=== PATIENT | female | born 1975 | race Caucasian/White ===

== ENCOUNTER 2025-03-12 02:18 | Day surgery (SDC) | payer OTHER, SELFPAY ==
[2025-03-04 13:56] VITALS: BMI 26.6
--- NOTE | 2025-03-04 14:23 | PC.NURSE ---
Report to the Outpatient Waiting Room, entrance under the green pavilion located off [facility], at time _0600 on date __03/12/25 . Planned Procedure Time: _0730 .? Time changes happen often and if your time is changed the preop area will call you the afternoon before. - You and your visitor will be asked to self-screen and do not enter if you have any COVID symptoms. Please call surgeon if you need to reschedule. - A mask is optional within the hospital at this time. Patients may have clear liquids (water, carbonated beverages, clear teas, apple juice) until 3 hours prior to surgery with a maximum of 20 ounces. - No food from midnight until time of surgery and no smoking, or chewing tobacco (or any form of nicotine). No chewing gum, candy or mints. - Infants may have breast milk until 4 hours before surgery, formula 6 hours prior to surgery. - Children will be allowed to drink immediately following surgery.? If applicable, please bring a bottle or sippy cup to assist with drinking. Juice, water, soda, and popsicles are readily available.? For infants on formula, please bring formula the day of surgery.? Pacifiers are allowed. Take only the following medications with a SIP of water on the morning of surgery: _Gabapentin DO NOT STOP ANY OF YOUR OTHER PRESCRIPTION MEDICATIONS PRIOR TO SURGERY EXCEPT THE FOLLOWING Hold all vitamins and supplements for 3 days per anesthesiologist. Please no make-up, nail swedish, hairspray, perfume, deodorant, or body powder the day of surgery.? No jewelry (including any body piercings) or valuables the day of surgery, leave them at home.? Please take a shower or bath the night before, or the morning of, surgery with an antibacterial soap.? Wear comfortable, loose fitting clothing.? Children are encouraged to wear pajamas. - Jewelry must be removed prior to entering the operating room.? Rings and piercings that are not removed may be cut off. - The hospital will not accept responsibility for valuables.? - Please leave all valuables, including medications, at home the day of surgery. If you are going home after surgery, a licensed hammer driver must drive you home.? - NO public transportation without another adult if you receive anesthesia. - We recommend that an adult stay with you for 24 hours following discharge. - We also recommend that you do not drive, make important decision, drink alcoholic beverages, or take any drugs that were not prescribed by your health care provider for at least 24 hours after your discharge time. For Pediatric surgeries, we recommend two adults accompany the child home. Follow any additional instructions given to you from your surgeon. Telephone instructions given to Laisha and asked if any additional questions and then verbalized understanding. Patient advised to call surgeon office or pre surgery nurse liaison [phone] if any additional questions.
--- NOTE | 2025-03-07 20:13 | P.HP_ITS ---
H&P: HPI History of Present Illness Date/Time: 03/07/25 20:13 Chief Complaint: DONAVON Narrative: Mixed incontinence. DONAVON is main issue Review of Systems Review of Systems: All systems reviewed & are unremarkable except as noted in HPI and below [facility] Social History Social History Smoking status: Never smoker Alcohol intake: never Substance use: never Living arrangements: alone Spiritual care concerns: No Meds Home Medications and Allergies Home Medications ?Medication ?Instructions ?Recorded ?Confirmed ?Type cholecalciferol (vitamin D3) 25 25 mcg PO DAILY 03/04/25 03/04/25 History mcg (1,000 unit) capsule (Vitamin D3) gabapentin 300 mg capsule 300 mg PO TID 03/04/25 03/04/25 History oxybutynin chloride 5 mg tablet 5 mg PO DAILY 03/04/25 03/04/25 History Allergies Allergy/AdvReac Type Severity Reaction Status Date / Time Penicillins Allergy Intermediate Hives Verified 03/04/25 13:53 Exam Narrative: + urethral mobility Assessment and Plan Assessment and plan (1) DONAVON (stress urinary incontinence, female): Code(s): N39.3 - Stress incontinence (female) (male) Status: Acute Assessment and Plan: Urethral sling
[2025-03-12] VITALS (7 sets, daily range): BP systolic 92–143; BP diastolic 55–88; PULSE 53–73; RESP 14–20; TEMP 36.5–36.6; O2SAT 97–100
--- OUTSIDE RECORDS SUMMARY | 2025-03-12 02:25 | XMS_ITS | Encounter Summary ---
Author Name [facility] Organization [facility] Address [address] [place] [id number] Care Team Providers Care Product Support Engineer Name Role Phone GABY ANNA Primary Care Provider Unavailabl e Selected Encounter This section includes the information on record at [place] for the Encounter. Date/Time Encounter Type Encounter Description Reason Provider Source Dec 25, 2024 08:20 AM OFFICE O/P EST MOD 30 MIN GENERAL INTERNAL MEDICINE ICD-10-CM M54.51 Vertebrogenic low back pain RIP ANNA Papo Encounter Template Text not used by [place] Assessments - Encounter Diagnoses This section includes the primary and secondary diagnoses documented for the Encounter. Date/Time Primary/Secondary Diagnosis Diagnosis Name Provider Source Dec 25, 2024 10:36 AM PRIMARY Vertebrogenic low back pain [facility] Dec 25, 2024 10:36 AM SECONDARY Basal cell carcinoma of skin, unspecified [facility] Dec 25, 2024 10:36 AM SECONDARY Stress incontinence (female) ([facility] Dec 25, 2024 10:36 AM SECONDARY Thoracic root disorders, not elsewhere classified [facility] Dec 25, 2024 10:36 AM SECONDARY Vitamin D deficiency, unspecified [facility] Plan of Treatment: Future Appointments (+ 6 months) and Future Tests (+/- 45 days) The Plan of Treatment section includes future care activities for the patient from all [place] treatmentfacilities. This section includes future appointments and future orders which are active, pending or scheduled. Future Appointments This section includes appointments that were scheduled to occur 6 months from the date of the Encounter, up to a maximum of 20 appointments. The data comes from all [facility]. Appointment Date/Time Appointment Type Appointme nt Facility Name Jan 05, 2025 07:30 AM AMBULATORY - SURGERY [facility] Jan 20, 2025 02:30 PM AMBULATORY - SURGERY [facility] Mar 29, 2025 10:30 AM AMBULATORY - MEDICINE [facility] Apr 09, 2025 09:00 AM AMBULATORY - NONE [facility] SAR[facility] Kelley [facility] May 12, 2025 07:30 AM AMBULATORY - NONE [facility] Mackenzie [facility] Active, Pending, and Scheduled Orders This section includes a listing of several types of active, pending, and scheduled orders, including clinic medications orders, diagnostic test orders, procedure orders and consult orders; where the start date of the order is 45 days before the date of the Encounter or 45 days after the date of theEncounter. The data comes from all [facility]. Test Date/Time Test Type Test Details Facility Name Dec 25, 2024 09:22 AM Consult Order COMMUNITY CARE-L UROLOGY [facility] Facility Maintenance [facility] Dec 25, 2024 09:25 AM Consult Order WHOLE HEAL TH MA[employer] OUTPT STL [facility] Vital Signs: All taken on the encounter date This section contains inpatient and outpatient Vital Signs collected on the date of the Encounter. Date/Time Temperature Pulse Blood Pressure Respiratory Rate SP02 Pain Height Weight Body Mass Index Source Dec 25, 2024 08:31 AM 98 89 131/89 18 99 4 [facility] Social History: Smoking Status (Most current) and Tobacco Use (All prior to encounter date) This section includes the most current, and the historical, smoking and tobacco- related health factors from the [place] facility where the Encounter took place. Current Smoking Status This section includes the most current smoking, or tobacco-related health factor, from the [place] facility where the Encounter took place. Date/Time Current Smoking Status Chel arredondo Mar 30, 2024 11:30 AM [place]-TOBACCO NEVER USED [facility] Tobacco Use History This section includes a history of the smoking, or tobacco-related health factors, that were collected on or before the date of the Encounter. The data comes from the [place] facility where the Encounter took place. Date/Time Smoking Status/Tobacco Use Comment F acility Apr 12, 2023 02:30 PM [place]-TOBACCO NEVER USED [facility] Apr 27, 2022 11:00 AM [place]-TOBACCO NEVER USED [facility] Radiology Reports: +/- 30 days of the encounter Radiology Reports For cases when an order for radiology services may have been completed prior to the date of the Encounter, the report list includes the Radiology Reports that were completed up to 30 days before dateof the Encounter. For cases when an order for radiology services may have been completed after the date of the Encounter, the report list also includes the Radiology Reports that were completed up to30 days after date of the Encounter. The data comes from all [place] treatment facilities. Date/Time Radiology Report Provider Source Dec 25, 2024 08:59 AM FOOT,LEFT 3 VIEWS OR MORE: ALFONSO ANGULO [id number] -[id number] F Exm Date: DEC 25, 2024@08:59 Req Phys: GABY ANNA Pat Loc: [facility]-PC GEN MED TM-C SAME DAY (R Img Loc: [facility]-MAIN RADIOLOGY SUITE Service: Unknown Screen: Patient answered no [facility] [address] [place] [address] (Case [id number] COMPLETE) FOOT,LEFT 3 VIEWS OR MORE (RAD Detailed) CPT:53238 Proc Modifiers : LEFT Reason for Study: left foot pain dorsal aspect Clinical History: left foot pain ongoing x 2 years Report Status: Verified Date Reported: DEC 25, 2024 Date Verified: DEC 25, 2024 Offshore Wind Turbine Technician E-Sig:/ES/YOLANDA VILLALPANDO Report: EXAMINATION: FOOT,LEFT 3 VIEWS OR MORE DATE: 12/25/2024 8:59 AM HISTORY: left foot pain dorsal aspect. COMPARISON: Left foot x-rays May 2023. VIEWS:3 FINDINGS:No fracture, subluxation or dislocation. No congenital anomaly. Minimal inferior calcaneal enthesophyte of no clinical consequence. No focal destructive process. No specific source of left-sided dorsal pain is seen. Impression: Normal left foot x-rays. Primary Interpreting Staff: YOLANDA VILLALPANDO, RADIOLOGIST (Offshore Wind Turbine Technician) /YOLANDA CARRANZA [facility] Encounter Notes: All associated encounter notes This section contains the clinical notes associated to the Encounter. Date/Time Encounter Note(s) Provider Source Dec 25, 2024 08:40 AM PRIMARY CARE NOTE: LOCAL TITLE: PRIMARY CARE PROVIDER ESTABLISHED VISIT STL STANDARD TITLE: PRIMARY CARE NOTE DATE OF NOTE: DEC 25, 2024@08:40 ENTRY DATE: DEC 25, 2024@08:40:49 AUTHOR: GABY ANNA COSIGNER: URGENCY: STATUS: COMPLETED [facility] HPI: ANGULOALFONSO is a 49 year old FEMALE with a PMHx of thoracic outlet syndrome s/p repair, stress incontinence, hx BCC s/p removal, who presents for acute care visit. OUTSIDE [place] PHYSICIAN: Dr. Jose Luis Weber vascular [facility] Interval Hx: -last PCP visit: 03/30/24 -08/13/24 same day clinic for UTI treated New complaints: LEFT FOOT PAIN, ACUTE ON CHRONIC -xray reviewed 05/2023 with calcaneal spur -repeat xray today 11/2024 to rule out stress fracture or other chronic finding -exam notable for 10/10 monofilament 2+ pulses, mild TTP diffusely over the base of left 3-5th metatarsals PLAN -podiatry referral given chronicity and worse with weightbearing -trial gabapentin 100mg TID for neuropathic pain -trial capsaicin topical QID PRN STRESS INCONTINENCE MIXED URGE AND OVERFLOW INCONTINENCE -completed pelvic PT and pessary -hx of 1 vaginal delivery -s/p hysterectomy 2017 for benign fibroids and endometriosis -seen by clinical support associate Dr Amanda COULTER 05/2023 with plan to repeat pessary trial PLAN -now with mixed urge and overflow incontinence for 3-4 months in 2024 without new etiology. Had UTI in 07/2024 with full resolution after treatment, no recurrence of hematuria, dysuria symptoms -referral to urology/urogyn -already completed pelvic PT and using pessary -no indication to repeat UA/urine cx as asymptomatic from infection standpoint -trial oxybutynin SA 5mg daily [facility] RE-ORDER CONSULT FOR CLBP with sciatica REVIEW OF SYSTEMS: All 10 systems reviewed and negative except as noted above MEDICAL HISTORY: 1) Thoracic outlet syndrome 2) Vitamin D deficiency 3) Basal cell carcinoma - primary 4) Female stress incontinence 5) Chronic low back pain SURGICAL HISTORY thoracic outlet syndrome s/p repair hysterectomy 2018 FAMILY HISTORY Father: hx of polyps, bipolar disorder Mother: HTN, dermatomyositis Aunt: breast cancer SOCIAL HISTORY TOBACCO- never ALCOHOL- social only ILLICITS- none LIVES- [place] JOB- [employer] 26 years ALLERGIES reviewed, PCN (rash) Active Outpatient Medications (including Supplies): Active Outpatient Medications Status 1) CAPSAICIN 0.025% CREAM APPLY SPARINGLY TO AFFECTED AREA(S) ACTIVE FOUR TIMES A DAY NEEDED FOR EXTERNAL USE ONLY. WASH HANDS AFTER APPLICATION. Indication: FOR PAIN 2) CHOLECALCIF 25MCG (D3-1,000UNIT) TAB TAKE ONE TABLET BY ACTIVE MOUTH ONCE A DAY Indication: FOR VITAMIN D DEFICIENCY 3) GABAPENTIN 100MG CAP TAKE ONE CAPSULE BY MOUTH THREE TIMES A ACTIVE DAY Indication: FOR NERVE PAIN 4) GLOVE NITRILE MED PFREE NSTERILE TX USE GLOVE TO AFFECTED ACTIVE AREA(S) ONCE A DAY Indication: FOR INFECTION PREVENTION 5) LIDOCAINE 5% OINT APPLY LIGHTLY TO AFFECTED AREA(S) THREE ACTIVE TIMES A DAY NEEDED Indication: FOR PAIN 6) MULTIVITAMIN CAP/TAB TAKE 1 TABLET BY MOUTH ONCE A DAY ACTIVE Indication: FOR NUTRITION/DIETARY SUPPLEMENTATION 7) OXYBUTYNIN CHLORIDE 5MG SA TAB TAKE ONE TABLET BY MOUTH ONCE ACTIVE (S) A DAY SWALLOW WHOLE, DO NOT CRUSH OR CHEW. Indication: FOR OVERACTIVE BLADDER 8) VALACYCLOVIR HCL 500MG TAB TAKE ONE TABLET BY MOUTH ONCE A ACTIVE DAY Indication: FOR VIRAL INFECTION PREVENTION PHYSICAL EXAM: BP: 131/89 P: 89 R: 18 WT: T: 98 HT: General: Sitting in chair, in no acute distress Skin: No rashes, bruising HEENT: NC, EOMI Lungs: CTAB, No wheezes or crackles Cardiovascular: Regular rate and rhythm, no murmur noted Abdominal: Soft, Non-tender, active bowel sounds Extremities: Moving all extremities. Neuro: Alert and oriented x3. No focal deficits LEFT FOOT: 2+ pulses, 5/5 monofilament testing, tenderness to palpation over the dorsal and lateral aspect of the left foot and the base of metatarsals 3-5 LABS: reviewed IMAGING Imaging impressions XR 05/2023 LEFT FOOT AND XR 12/25/24 LEFT FOOT REVEIWED HEALTH MAINTENANCE see last MARCH 2024 PCP note ASSESSMENT & PLAN: LEFT FOOT PAIN, ACUTE ON CHRONIC -xray reviewed 05/2023 with calcaneal spur -repeat xray today 11/2024 to rule out stress fracture or other chronic finding -exam notable for 10/10 monofilament 2+ pulses, mild TTP diffusely over the base of left 3-5th metatarsals PLAN -podiatry referral given chronicity and worse with weightbearing -trial gabapentin 100mg TID for neuropathic pain -trial capsaicin topical QID PRN STRESS INCONTINENCE MIXED URGE AND OVERFLOW INCONTINENCE -completed pelvic PT and pessary -hx of 1 vaginal delivery -s/p hysterectomy 2018 for benign fibroids and endometriosis -seen by clinical support associate Dr Amanda COULTER 05/2023 with plan to repeat pessary trial PLAN -now with mixed urge and overflow incontinence for 3-4 months in 2024 without new etiology. Had UTI in 07/2024 with full resolution after treatment, no recurrence of hematuria, dysuria symptoms -referral to urology/urogyn -already completed pelvic PT and using pessary -no indication to repeat UA/urine cx as asymptomatic from infection standpoint -trial oxybutynin SA 5mg daily RTC in 2 Months as scheduled with PCP Gaby Anna M.D. Physician, Internal Medicine Primary Care Team C6 PCP 03/29/25 10:30 am HELDER-PACT C6 PCP 05/12/25 7:30 am HELDER-DENTAL HYG 06/30/25 8:00 am HELDER-OPTOMETRY Time Spent: 40 min Chart Review: 10 min Time with patient: 20 min Post-visit care: 10 min REMINDERS /es/ GABY ANNA MD STAFF PHYSICIAN Signed: 12/25/2024 10:36 GABY ANNA [facility] Dec 25, 2024 08:33 AM NURSING NOTE: LOCAL TITLE: V15 PACT FACE TO FACE NOTE STL STANDARD TITLE: NURSING NOTE DATE OF NOTE: DEC 25, 2024@08:33 ENTRY DATE: DEC 25, 2024@08:34:13 AUTHOR: WALESKA MURRIETA COSIGNER: URGENCY: STATUS: COMPLETED Provider Visit: Patient Identifiers : Full Name Date of Reason for visit: Other: Having pain in left foot. said it is a burning feeling on the top of foot. [place] is also having stress incontinence. Mode of Arrival: Ambulatory Allergy Review: PENICILLIN Allergy list reviewed and remains current. Recent Vital Signs: Temperature: 98 F [36.7 C] (12/25/2024 08:31) Pulse: 89 (12/25/2024 08:31) Respiration: 18 (12/25/2024 08:31) B/P: 131/89 (12/25/2024 08:31) Pain: 4 (12/25/2024 08:31) Wt.: 132.5 lb. [60.10 kg] (08/13/2024 14:43) Ht: 67 in [170.2 cm] (03/30/2024 11:36) BMI: 20.8 POX: 99% (12/25/2024 08:31) PERSONAL HEALTH INVENTORY Notes: No data available for PHI note titles PERSONAL HEALTH INVENTORY - MAP: No data available for PHI MAP What matters most to you in your life right now? -- [place]'s Response: Family and working out Would you like to discuss any personal problem, family problem, alcohol use, drug use, or a mental or emotional illness? No My [facility] ([facility]), please select appointment type: Face to face: No- Are you interested in getting this done? No Contact provided Primary Care phone number and encouraged to call if any questions or concerns. Review that after hours nurse line [phone] and emergency room are available 22/04 for patient use. Contact verbalized good understanding. /burak/ WALESKA MURRIETA LPN LICENSED PRACTICAL NURSE Signed: 12/25/2024 08:41 WALESKA MURRIETA [facility]
--- OUTSIDE RECORDS SUMMARY | 2025-03-12 02:25 | XMS_ITS | Encounter Summary ---
Author Name [facility] Organization [facility] Address [address] [place] [address] Care Team Providers Care Moving Picture Operator Name Role Phone GABY ANNA Primary Care Provider Unavailabl e Selected Encounter This section includes the information on record at [place] for the Encounter. Date/Time Encounter Type Encounter Description Reason Provider Source Jan 05, 2025 07:30 AM OFF/OP CNSLTJ NEW/EST MOD 40 PODIATRY ICD-10-CM M79.672 Pain in left foot KATALINA,NURIA MOY E Encounter Template Text not used by [place] Assessments - Encounter Diagnoses This section includes the primary and secondary diagnoses documented for the Encounter. Date/Time Primary/Secondary Diagnosis Diagnosis Name Provider Source Jan 05, 2025 01:55 PM PRIMARY Pain in left foot KATALINA,[facility] Jan 05, 2025 01:55 PM SECONDARY Congenital pes cavus, left foot KATALINA,BETT Y [facility] Jan 05, 2025 01:55 PM SECONDARY Congenital pes cavus, right foot KATALINA,BETT Y [facility] Jan 05, 2025 01:55 PM SECONDARY Hallux valgus (acquired), left foot KATALINA,BETT Y MO[facility] Jan 05, 2025 01:55 PM SECONDARY Hallux valgus (acquired), right foot KATALINA,BETT Y MOY [facility] Plan of Treatment: Future Appointments (+ 6 months) and Future Tests (+/- 45 days) The Plan of Treatment section includes future care activities for the patient from all [place] treatmentfacilities. This section includes future appointments and future orders which are active, pending or scheduled. Future Appointments This section includes appointments that were scheduled to occur 6 months from the date of the Encounter, up to a maximum of 20 appointments. The data comes from all [facility]. Appointment Date/Time Appointment Type Appointme nt Facility Name Jan 20, 2025 02:30 PM AMBULATORY - SURGERY . Kasi [facility] Mar 29, 2025 10:30 AM AMBULATORY - MEDICINE [facility] Apr 09, 2025 09:00 AM AMBULATORY - NONE . SRAAH Kelley [facility] May 12, 2025 07:30 AM AMBULATORY - NONE . VERITO Mackenzie [facility] Jun 30, 2025 08:00 AM AMBULATORY - SURGERY [facility] Active, Pending, and Scheduled Orders This section includes a listing of several types of active, pending, and scheduled orders, including clinic medications orders, diagnostic test orders, procedure orders and consult orders; where the start date of the order is 45 days before the date of the Encounter or 45 days after the date of theEncounter. The data comes from all [facility]. Test Date/Time Test Type Test Details Facility Name Dec 25, 2024 09:22 AM Consult Order [facility] Dec 25, 2024 09:25 AM Consult Order WHOLE HEAL TH CHIEF OPERATIONS OFFICER OUTPT [facility] Social History: Smoking Status (Most current) and Tobacco Use (All prior to encounter date) This section includes the most current, and the historical, smoking and tobacco- related health factors from the [place] facility where the Encounter took place. Current Smoking Status This section includes the most current smoking, or tobacco-related health factor, from the [place] facility where the Encounter took place. Date/Time Current Smoking Status Comment Facil ity Mar 30, 2024 11:30 AM VA-TOBACCO NEVER USED [facility] Tobacco Use History This section includes a history of the smoking, or tobacco-related health factors, that were collected on or before the date of the Encounter. The data comes from the [place] facility where the Encounter took place. Date/Time Smoking Status/Tobacco Use Comment F acility Apr 12, 2023 02:30 PM VA-TOBACCO NEVER USED [facility] Apr 27, 2022 11:00 AM VA-TOBACCO NEVER USED [facility] Radiology Reports: +/- 30 days of the [...] the Encounter. The data comes from all [place] treatment facilities. Date/Time Radiology Report Provider Source Dec 25, 2024 08:59 AM FOOT,LEFT 3 VIEWS OR MORE: ALFONSO ANGULO [id number] -[id number] F Exm Date: DEC 25, 2024@08:59 Req Phys: GABY ANNA Loc: - GEN MED TM-C SAME DAY (R Img Loc: -MAIN RADIOLOGY SUITE Service: Unknown Screen: Patient answered no [facility] [address] [place] [address] (Case [id number] COMPLETE) FOOT,LEFT 3 VIEWS OR MORE (RAD Detailed) CPT:26744 Proc Modifiers : LEFT Reason for Study: left foot pain dorsal aspect Clinical History: left foot pain ongoing x 2 years Report Status: Verified Date Reported: DEC 25, 2024 Date Verified: DEC 25, 2024 Lead Slot Technician E-Sig:/ES/YOLANDA VILLALPANDO Report: EXAMINATION: FOOT,LEFT 3 [...] left foot x-rays. Primary Interpreting Staff: YOLANDA VILLALPANDO RADIOLOGIST (Lead Slot Technician) /YOLANDA CARRANZA [facility] Encounter Notes: All associated encounter notes This section contains the clinical notes associated to the Encounter. Date/Time Encounter Note(s) Provider Source Jan 05, 2025 07:33 AM PODIATRY CONSULT: LOCAL TITLE: PODIATRY CONSULT [facility] STANDARD TITLE: PODIATRY CONSULT DATE OF NOTE: JAN 05, 2025@07:33 ENTRY DATE: JAN 05, 2025@07:33:22 AUTHOR: NURIA DARDEN EXP COSIGNER: URGENCY: STATUS: COMPLETED S: PT PRESENTS TO CLINIC TODAY WITH CHIEF COMPLAINT OF LEFT FOOT PAIN ON THE LEFT FOOT WITH SHARP BURNING PAIN ON THE LEFT. HAS HAD FOR A COUPLE OF YEARS MAINILY ON THE TOP OF THE FOOT AND STATES IT HAS GOTTEN WORSE. PT DENIES ANY SYSTEMIC SIGNS OF INFECTION RECENT TRAUMA. PT STATES IT IS NOT DEPENDANT UPON ACTIVITY HOWEVER IS STILL PRESENT ON ACTIVITY. PT IS FOLLOWED BY HER PCP FOR HER GENERAL HEALTH ISSUES. PT IS COOPERATIVE AND PLEASANT UPON EXAM. SHE REPORTS NO PAIN IN CERTAIN SHOE GEAR. SYMPTOMS WORSENDED BY: SOMETIMES WALKING. SYMTOMS IMPROVED BY: LIDOCAINE. PAIN SCALE: 4/10. HEIGHT:67 in [170.2 cm] (03/30/2024 11:36) WEIGHT:132.5 lb [60.10 kg] (08/13/2024 14:43) FAMILY HISTORY: SHE DENIES ANY FAMILY HX OF DM, AMPUTATION, OR LUPUS, OR RH. HGA1C: HGA1C 5.4 % 03/30/2024 12:09 ROS: CARDIAC: SHE DENIES ANY HEART PROBLEMS OR ISSUES. VASCULAR: SHE DENIES ANY PROBLEMS WITH BLOOD FLOW TO THE FEET OR LEGS. MUS/SK: PT COMPLAINS OF SCIATIC PAIN ON B/L. KIDNEY: PT DENIES ANY KIDNEY ISSUES. SKIN: PT DENIES ANY SLOW OR NON-HEALLING WOUNDS. HX OF BASAL CELL CARCINOMA ON SHOULDER. ALLERGIES:PENICILLIN SOCIAL HISTORY: PT DENIES DRUG AND MARIJUANA USE. PT DENIES ANY TOBOACCO USE. PT ADMITS TO OCCASSIONAL ETOH USE. PT IS LIVING AT HOME ALONE. 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 SIT AND STANDS. RELEVANT PAST SURGICAL HISTORY: PT DENIES ANY SURGERIES TO THE FEET OR ANKLES. SHE GIVES HX OF DISC REPLLACEMNT AND THORASIC OUTLET. ULNER SURGERY ON THE LEFT ARM AND WRIST SURGERY ON THE RIGHT. HYSTERECTOMY. PAST MEDICAL HISTORY: 1) Thoracic outlet syndrome 2) Vitamin D deficiency 3) Basal cell carcinoma - primary 4) Female stress incontinence 5) Chronic low back pain CURRENT MEDICATIONS: Active Outpatient Medications (including Supplies): Active Outpatient [...] TAKE ONE TABLET BY MOUTH ONCE ACTIVE A DAY SWALLOW WHOLE, DO NOT CRUSH OR CHEW. Indication: FOR OVERACTIVE BLADDER 8) VALACYCLOVIR HCL 500MG TAB TAKE ONE TABLET BY MOUTH ONCE A ACTIVE DAY Indication: FOR VIRAL INFECTION PREVENTION O: PT IS ALERT AND ORIENTED X 3 AND IN NAD. SHE IS AMBULATING WITHOUT ASSISTANCE. SHE IS WEARING HER PERSONAL SHOES ON EXAM. VASC: PALPABLE PULSES, NO ISCHEMIC CHANGES NOTED ON EXAM. CAPP REFILL LESS THAN 3 SECONDS. SCANT DIGITAL HAIR GROWTH NOTED. FEET ARE WARM TO TOUCH. NEURO: GROSSLY INTACT, PROTECTIVE LIGHT SENSATION INTACT PER SEMMES LITZY 5.07 MONOFILAMENT TO ALL SITES TESTED B/L. DERM: NAILS TRIMMED APPROPRIATELY ON EXAM. NO ASCENDING CELLULITIS. NO ERYTHAMA, NO DRAINAGE, AND NO OPEN WOUNDS NOTED ON EXAM. MUS/SK: GOOD MUSCLE STRENGTH IN ALL 4 QUADRANTS. NO DELL NOTED IN THE ACHILLES. ROM AT THE ANKLE WITHIN NORMAL LIMITS. WIDER FOOT ON STANCE WITH HALLUX VALGUS B/L HOWEVER GREATER ON THE RIGHT. NO PAIN WITH ROM IS NOTED ON EXAM AND NO CREPITUS. PT HAS PAIN WITH PALPATION INERMETATARSALS 2, 3, AND 4 HOWEVER NO SHOOTING PAIN ONLY SIGNIFICANT TENDERNESS COMPARED TO NO PAIN CONTRA-LATRAL. PT HAS NO PAIN WITH ROM OR PALPATION OF MET HEADS. UPON STANCE MILD PES CAVUS IS NOTD B/L. X-RAYS: REVIEWED THE RADIOLOGIST FINDINGS. A/P 1 HALLUX VALGUS B/L/ DISCUSSED SURGRY, DO NOT REOCMMNED WITHOUT PAIN AND PT AGRES. DISCUSSED CUTOM INSRTS AND GIVEN CURRENT PAIN ON THE FOOT AND NO PAIN AT BUNION SITES WILL DEFER AT THIS TIME AND PT AGREES. PT ADVISED OF NEED FOR PROPER SHOE GEAR AT ALL TIMES. PT SENT FOR OTC INSRTS WITH PRECAUTONS. PCP MAY ORDER IN THE FUTURE. 2 GENERAL HEALTH ISSUES/ PT EDUCATION. PT TO F/U WITH PCP. 3 PES CAVUS B/L/ PT SENT FOR OTC INSERTS WITH PRECAUTIONS. DUE TO NO PAIN ON EXAM WILL DEFER CUSTOM INSRTS AT THIS TIME AND PT AGREES. DID DISCUSS NEED FOR APPROPRIATE SHOE GEAR AT ALL TIMES. 5 LEFT FOOT PAIN / CLNICAL SIGNS OF SMITH'S METATARSALGIA HOWEVR COMPLICATD BY HX OF SCIATIC PAIN AND FOOT DEFORMITY. DISCUSSED NEED FOR WEARING SHOES LOOSE DORSALLY AND SHOES MUST BE WIDER AND DEEPER WITH STIFFER FORE FOOT. PT GIVEN OTC INSERTS WITH PRECAUTIONS. ADVISED PT TO WEAR THE SHOES THAT CAUSE NO PAIN THAT SHE CURRENTLY HAS AND ONLY USE THE INSERTS IF PAIN REOCCURS. TIME SPENT: 45 MIN. PT DISCHARGED FROM THE PODIATRY CLINIC AT THIS TIME. DISCUSSED TREATMENT OPTIONS WITH PATIENT AND PATIENT ADVISED TO GO TO THE ER IF ANY INCREASE IN PAIN REDNESS OR ERYTHEMA IS NOTED. PT STATES UNDERSTANDING. MEDICATION/RECONCILLIATION : REVIEWED AND RECONCILLED ALL PODIATRIC GENERATED MEDICATIONS. PER [place] PODIDATRY DIRECTIVE 1122 PT IS CONSIDERED TO BE MILD RISK. /burak/ NURIA DARDEN Staff Physician, Podiatry Signed: 01/05/2025 13:55 NURIA DARDEN [facility]
--- OUTSIDE RECORDS SUMMARY | 2025-03-12 02:25 | XMS_ITS | Data Portability ---
Author Organization [facility] Address [address] [facility] [address] [place] [address] Assessment No assessment recorded. Plan of Treatment Reminders Order Date Submit Date Provider Last Modified By Organization Details Last Modified Time Details Appointments None recorded. Lab urinalysis, dipstick 2020 021 [email or web address] In-Office Order, Internal Use Only DO Not Attach Compendium DO Not Attach Compendium, Do Not Delete/merge, [id number] 17:05:26 culture, urine + sensitivity 2020 021 [email or web address] [facility] [address], [place], [address], 17:05:26 Referral None recorded. Procedures None recorded. Surgeries None recorded. Imaging None recorded. Medication Orders Cipro 500 mg tablet 2020 021 [id number], [address], [place], [phone], 16:42:16 Pyridium 200 mg tablet 2020 021 [id number], [address], [place], [phone], 16:43:51 Patient TargetsNo targets recorded. Patient Instructions Encounter Date Encounter Id Patient Instructions Last Modified By Organization Details Last Modified Time 02/17/2021 [id number] Discussed test results, exam findings, diagnosis, and plan of care. Pt. understands and agrees with plan. All questions and concerns were addressed at this time. Medication precautions discussed. Finish all antibiotics as prescribed. Preventative measures discussed. Increase fluids. Continue home medications as listed above. Follow-up with your family doctor in 5-7 days or the Emergency Department sooner if symptoms worsen or not improving. We will notify you of urine culture in 3-5 days. Follow-up with your family doctor in 2 weeks for urine re-check [email or web address] Not available 02/17/2021 16:42:13 Reason for Referral None Reported. Results Created Date Observation Date Name Description Value Unit Range Abnormal Flag Note LastModifiedBy Organization Detail LastModifiedTime 02/18/20 21 02/17/2021 urina lysis , dipst ick Leukocytes Negati ve Not Available In-Office Order Internal Use Only DO Not Attach Compendium DO Not Attach Compendium, Do Not Delete/merge, [id number] 02/17/2021 16:29:51 02/18/20 21 02/17/2021 urina lysis , dipst ick Nitrite positi ve Not Available In-Office Order Internal Use Only DO Not Attach Compendium DO Not Attach Compendium, Do Not Delete/merge, [id number] 02/17/2021 16:29:51 02/18/20 21 02/17/2021 urina lysis , dipst ick Urobilinogen .2 Not Available In-Of fice Order Internal Use Only DO Not Attach Compendium DO Not Attach Compendium, Do Not Delete/merge, [id number] 02/17/2021 16:29:51 02/18/20 21 02/17/2021 urina lysis , dipst ick Protein Negati ve Not Available In-Office Order Internal Use Only DO Not Attach Compendium DO Not Attach Compendium, Do Not Delete/merge, [id number] 02/17/2021 16:29:51 02/18/20 21 02/17/2021 urina lysis , dipst ick pH 6.0 Not Available In-Office Order Internal Use Only DO Not Attach Compendium DO Not Attach Compendium, Do Not Delete/merge, [id number] 02/17/2021 16:29:51 02/18/20 21 02/17/2021 urina lysis , dipst ick Blood Negati ve Not Available In-Office Order Internal Use Only DO Not Attach Compendium DO Not Attach Compendium, Do Not Delete/merge, 02/17/2021 16:29:51 02/18/2002/17/2021 urina lysis , dipst ick Specific [place] 1.015 Not Available In-Off ice Order Internal Use Only DO Not Attach Compendium DO Not Attach Compendium, Do Not Delete/merge, 02/17/2021 16:29:51 02/18/20 21 02/17/2021 urina lysis , dipst ick Ketone Negati ve Not Available In-Office Order Internal Use Only DO Not Attach Compendium DO Not Attach Compendium, Do Not Delete/merge, 02/17/2021 16:29:51 02/18/20 21 02/17/2021 urina lysis , dipst ick Bilirubin Negati ve Not Available In-Office Order Internal Use Only DO Not Attach Compendium DO Not Attach Compendium, Do Not Delete/merge, 02/17/2021 16:29:51 02/18/20 21 02/17/2021 urina lysis , dipst ick Glucose Negati ve Not Available In-Office Order Internal Use Only DO Not Attach Compendium DO Not Attach Compendium, Do Not Delete/merge, 02/17/2021 16:29:51 02/18/2002/17/2021 urina lysis , dipst ick Appearance Slight ly Cloudy Not Available In-Office Order Internal Use Only DO Not Attach Compendium DO Not Attach Compendium, Do Not Delete/merge, 02/17/2021 16:29:51 02/18/20 21 02/17/2021 urina lysis , dipst ick Color Dark Yellow Not Available In-Office Order Internal Use Only DO Not Attach Compendium DO Not Attach Compendium, Do Not Delete/merge, 02/17/2021 16:29:51 02/18/2002/17/2021 cultu re, urine urine culture See Note Perfo rmed at [facility] URINE CULTU RE ORGAN ISM 1: ESCHE PRASANNA A COLI COLON Y COUNT 10-50 ,000 ESCHE PRASANNA A COLI: REACT ION AMPIC ILLIN >=32 R AMOXI CILLI N/CA >=32 R AMPIC ILLIN /SULB ACTAM 16 I PIPER ACILL IN/TA ZOBAC MCDERMOTT <=4 S CEFTA ZIDIM E <=1 S CEFTR IAXON E <=1 S CEFEP JOSE ANGEL <=1 S IMIPE NEM <=0.2 5 S GENTA MICIN <=1 S TOBRA MYCIN <=1 S ERTAP ENEM <=0.5 S CIPRO FLOXA GERALDO <=0.2 5 S LEVOF LOXAC IN <=0.1 2 S NITRO FURAN TOIN <=16 S TRIME THROP RIM/S ULFA <=20 S S = SUSCE PTIBL E, I = INTER MEDIA TE, R = RESIS TANT PRAMOD repor ts may conta in antib iotic s with inter preta tions only. PRAMOD break point value s are based upon FDA and CLSI guide lines . Not Available [facility] [address], [place], [address], 02/20/2021 09:17:00 Result Notes None recorded. Problems No Known Problems Procedures Surgical History Date Name Laterality Status Provider Name and Address Organization Details Recorded Time hysterectomy completed Maureen Bernard [facility] 02/17/2021 16:28:29 anesthesia for injection procedure for cervical discography completed Maureen Bernard [facility] 02/17/2021 16:29:02 Wrist arthroscopy/surge ry completed Maureen Bernard [facility] 02/17/2021 16:29:15 Imaging Results None recorded. Procedure Notes None recorded. Medical Equipment None Reported. Allergies Allergen ID Allergen Name Allergen Category Reaction Reaction Severity Criticality Documentation Date Start Date Code Code System Note Provider Name and Address Organization Details Recorded Time 19651 Product containin g penicilli n (product) medicatio n Not available Not available Not available 02/17/2021 17146 8001 SNOMED Maureen venegas [facility] 16:26:06 Medications Name Sig Start Date Stop Date Status Note LastModified by Organization Details LastModified Time musely neck cream neck Cleanse & apply 1 pump to neck area at night, OR as directed by doctor. Use eNurse software on [employer] to guide you daily. 02/17 completed Not Available Not Available Not Available [employer] spot cream nurture (6% hq, no ka) Cleanse & apply pea sized (1 full pump) to entire face at night, OR as directed by MD. Use eNurse software on [employer] to guide you daily. 02/17 completed Not Available Not Available Not Available methocarbam ol 500 mg tablet active Not Available Not Available Not Available acetaminoph en 325 mg tablet 02/17 completed Not Available Not Available Not Available gabapentin 600 mg tablet active Not Available Not Available Not Available doxycycline hyclate 100 mg capsule 02/17 completed Not Available Not Available Not Available trazodone 50 mg tablet 02/17 completed Not Available Not Available Not Available hydrocodone 5 mg-acetamin ophen 325 mg tablet TAKE 1 TO 2 TABLETS BY MOUTH EVERY 6 HOURS NEEDED FOR PAIN 02/17 completed Not Available Not Available Not Available phenazopyri dine 200 mg tablet TAKE 1 TABLET BY MOUTH THREE TIMES DAILY NEEDED active Not Available Not Available No t Available fluorouraci l 5 % topical cream 02/17 completed Not Available Not Available Not Available valacyclovi r 500 mg tablet 02/17 completed Not Available Not Available Not Available ciprofloxac in 500 mg tablet TAKE 1 TABLET BY MOUTH EVERY 12 HOURS FOR 7 DAYS active Not Available Not Available No t Available gabapentin 800 mg tablet 02/17 completed Not Available Not Available Not Available trazodone 100 mg tablet active Not Available Not Available Not Available phenazopyri dine 100 mg tablet 02/17 completed Not Available Not Available Not Available triamcinolo ne acetonide 0.1 % topical ointment 02/17 completed Not Available Not Available Not Available calcipotrie ne 0.005 % topical cream 02/17 completed Not Available Not Available Not Available clobetasol 0.05 % topical foam 02/17 completed Not Available Not Available Not Available mupirocin 2 % topical ointment 02/17 completed Not Available Not Available Not Available ibuprofen 600 mg tablet 02/17 completed Not Available Not Available Not Available clotrimazol e 1 % topical cream 02/17 completed Not Available Not Available Not Available cholecalcif tenzin (vitamin D3) 125 mcg (5,000 unit) capsule active Not Available Not Available Not Available clindamycin phosphate 1 % topical solution 02/17 completed Not Available Not Available Not Available oxycodone 5 mg tablet 02/17 completed Not Available Not Available Not Available cyclobenzap rine 5 mg tablet 02/17 completed Not Available Not Available Not Available nitrofurant oin monohydrate /macrocryst als 100 mg capsule TAKE 1 CAPSULE BY MOUTH TWICE DAILY FOR 7 DAYS 02/17 completed Not Available Not Available Not Available Vitals Date Recorded Body weight Heart rate Body temperature Oxygen saturation Oxygen saturation in Arterial blood by Pulse oximetry Systolic blood pressure Diastolic blood pressure Provider Name and Address Organization Details Last Updated DateTime 1 43382 g 65 /min 97.6 [degF] 98 % 98 % 123 mm[Hg] 81 mm[Hg] Maureen Bernard [facility] 1 16:25:43 Social History None recorded. Functional Status Question Answer Note LastModified by Organization D etails LastModified Time What is your level of alcohol consumption? None [email or web address] Information not available 02/17/2021 Mental Status None recorded. Family History Nothing Reported. Medical History Condition Response Pancreatitis N Coronary Artery Disease N Other N Gout N High Blood Pressure N Kidney Stones N Blood Diseases N Hyperthyroidism N Blood Transfusion N Emphysema N Head Trauma/Injury N Herpez Zoster N Depression N COPD N Pneumonia N Incontinence N Anxiety Disorder N Autoimmune disease N Arthritis N Polyps N Cancer N Stroke N Crohn's Disease N Skin Cancer N Other Sleep Disorders N Atrial fibrillation N Fibromyalgia N Irritable Bowel Syndrome N Kidney Disease N Heart Disease/Heart Problems N Ear or Hearing Problems N Brain Tumors N DVT N Skin Problems N Encephalitis N Eating Disorder N Constipation N Abdominal Pain N Ulcers N Bleeding Disorder N Cerebral Palsy N AIDS/HIV N Back Problems N Asthma N Allergies N Peripheral Vascular Disease N GERD/Reflux N Hepatitis N Cirrhosis N Chicken Pox N Autism Spectrum Disorder (ASD) N Colon Cancer N Prostate Disease N Breast Cancer N Glaucoma N Hypothyroidism N Lung Disease N Defects or Inherited Disease N Developmental or Behavioral Disorders N Breast Problem N Diverticulitis/Diverticulosis N Gallbladder N Anesthesia Complications N Herpes Labialis N Esophageal Cancer N Hypercalcemia N Ischemic Neurologic Deficit N Shingles N Post Menopause N Cervical Cancer N Developmental Problems N Congenital Anomalies N ADHD N Endometriosis N Hypertensive Cardiovascular Disease N Bladder or Kidney Problems N High Cholesterol N Liver Disease N HIV N Fractrure N GI Problems N Anemia N Carpal Tunnel Disorder N Hepatitis C N Sudden Weight Change N Colon Polyps N Heart Attack ([place]) N Ovarian Cancer N Diabetes N Bedwetting N Diabetic Retinopathy N Seizures/Epilepsy N Congestive Heart Failure (CHF) N Eczema N Dementia N Abuse/Domestic Violence N Hepatitis B N Lupus N Epilepsy/Seizures N Ulcerative Colitis N Sleep Apnea N Onychomycosis N Aneurysm N Gynecological HistoryNo gynecological history recorded. Obstetrics History GPAL:G 0 P 0 0 0 0 Past Encounters Encounter ID Performer Location Encounter Start Date Encounter Closed Date Diagnosis/Indication Diagnosis SNOMED-CT Code Diagnosis ICD10 Code Diagnosis Note [id number] Jessica Medina APRN, BARGE WORKER-C [facility] [address] [facility] [place] [address] 02/17/2021 15:26:23 02/20/2021 10:32:35 Dysuria 42007009 R30.9 nitrite +, neg leuk, neg blood, slightly cloudy Abnormal urinalysis 1672 59113 R82.90 Acute urin justino tract infection 523788366 N39.0 Health Concerns Section Related Observation LastModified by Organization Detai ls LastModified Time None Recorded Concern Status LastModified by Organization Details LastModified Time None Recorded Advance Directives Directive None Recorded Payers Insurance Date Sequence Insurance Name Policy Number Policy Erazo Covered Member ID Erazo Member ID Guarantor Name 02/27/2021 1 [facility] () Allyson Head [id number] Allyson Head Notes Date Note Type Note Provider Name and Address Organization Details Recorded Time 02/17/2021 text/html Urinary Frequency/DysuriaR eported bypatient.Severity :moderate Onset/Timing:sudde n; x2 days Context:success with short term antibiotics (usually); (normal) sexually active Alleviating Factors:antispasmo dics Associated Symptoms:no blood in the urine;abdominal pain;back pain;pain during urination;feelings of urgencyNotes:here for eval uti s/s. pt states symptoms started yesterday. she has been drinking a lot of water to try and flush out. Pt states tx for UTI about 1 mo ago with nitrofurantoin. pt denies hx of frequent or recurrent uti. states she took all of abx as prescribed. denies fever, chills, vaginal discharge. Jessica Medina APRN, BARGE WORKER-C [address] [place], [address], [facility] 02/17/2021 16:48:14 OBGyn Episode No OBEpisode recorded.
--- OUTSIDE RECORDS SUMMARY | 2025-03-12 02:25 | XMS_ITS | Continuity of Care Document ---
Author Name [facility] Organization [facility] Care Team Providers Care Recruitment Assistant Name Role Phone [facility] Unavailable Unavailable Problems Combined list of problems from Department of Defense and Veterans Affairs facilities. It does not include entries that were removed or entered in error. Problem Status Onset Date Problem Type Date of Resolution Comments Source EXAM/ASSESSMENT, OCCUPATIONAL, TECHNICAL SME PERIODIC HEALTH ASSESSMENT (PHA) Active 015 Condition DoD Counseling, unspecified Active 015 Condition DoD Basal cell carcinoma - primary Active Condition [facility] Chronic low back pain Active Condition [facility] Female stress incontinence Active Condition [facility] Thoracic outlet syndrome Active Condition [facility] Vitamin D deficiency Active Condition [facility] Insomnia, unspecified Active Condition DoD Other specified sprain of right wrist Active Condition DoD SKIN CANCER Active Condition DoD ASSESS PATIENT CONDITION WORK-RELATED OCCUPATIONAL DISEASE Active Condition DoD CHRONIC PAIN Active Condition DoD MYOFASCIAL PAIN SYNDROME Active Condition DoD LUMBAR NEURITIS L4 - L5 Active Condition DoD LUMBAR RADICULOPATHY Active Condition DoD control method - contraceptive vaginal ring Active Condition DoD visit for: screening exam venereal disease Inactive Condition DoD Patient Education - Self-Examination Of Breasts Active Condition DoD ROUTINE PELVIC EXAM Inactive Condition D oD visit for: screening exam Inactive Condition DoD visit for: issue medical certificate Inactive Condition DoD OTITIS EXTERNA ACUTE BOTH EARS Inactive Condition DoD SINUSITIS ACUTE Inactive Condition DoD Lymph Nodes Enlarged Inactive Condition DoD Nodules - Subcutaneous Inactive Condition DoD DYSPLASTIC NEVUS Active Condition DoD SKIN NEOPLASM TRUNK BASAL CELL CARCINOMA Active Condition DoD NON-NEOPLASTIC NEVUS Active Condition DoD FOLLICULITIS PUSTULAR Inactive Condition DoD earache Inactive Condition DoD HIP SPRAIN HAMSTRING INSERTION Inactive Condition DoD joint pain, localized in the hip Active Condition DoD HIP SPRAIN HAMSTRING INSERTION RIGHT Inactive Condition DoD ECZEMA Inactive Condition DoD visit for: administrative purpose Inactive Condition DoD Other Physical Therapy Active Condition DoD Preventive Medicine Establ. Patient Checkup Adult 18-39 Inactive Condition DoD lower back pain Active Condition DoD NORMAL PRE-EMPLOYMENT SCREENING EXAMINATION Active Condition DoD SCIATICA Active Condition DoD allergies Active Condition DoD visit for: issue repeat prescription for medication Inactive Condition DoD visit for: screening exam for human papillomavirus (HPV) Active Condition DoD WRIST SPRAIN - RIGHT Inactive Condition DoD PITYRIASIS ROSEA Active Condition DoD DERMATITIS Inactive Condition DoD SINUSITIS Active Condition DoD Gynecologic Service Prescrip Of Contracept Agent - Repeat Rx Inactive Condition DoD Cervical Pap Smear Active Condition DoD UPPER RESPIRATORY INFECTION Inactive Condition DoD TENDONITIS ACHILLES Active Condition Do D ankle joint stiffness Active Condition DoD ankle joint pain Active Condition DoD visit for: services physical Active Condition DoD ANKLE SPRAIN TIBIOFIBULAR LIGAMENT ANTERIOR RIGHT Active Condition DoD GASTROENTERITIS VIRAL Inactive Condition DoD ANKLE SPRAIN RIGHT Inactive Condition Do D GASTROENTERITIS Active Condition DoD Gynecologic Services Contraceptive General Counseling Inactive Condition DoD Gynecologic Services Contraceptive Management Inactive Condition DoD ASTIGMATISM Active Condition DoD NORMAL ROUTINE HISTORY AND PHYSICAL - Active Condition may gradually return to work, exercise and coitus. Discussed possible irregular vaginal bleeding/menses while and using Micronor. DoD Oral Contraceptives Active Condition counselled regarding available contraception while including minipill, Depo, Mirena and Paraguard IUD, Implanon. 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 DoD PREG COMP: TRANS HTN - ANTEPART COND OR PRIOR COMP DELIVERY Active Condition Pt with isolate d elevated BP in clinic today. Tox labs and UA ordered today, pt to have drawn today. Pt BP returned to normotensive range after sitting for 5 minutes. Pt will go to triage for NST today. return for 39 week appt in [facility] clinic. Pt to continue Acyclovir HSV prophylaxis. DoD HERPES SIMPLEX TYPE II Active Condition DoD Inactive Condition keep 36 wk appt as scheduled DoD Vesicle (___mm) Active Condition tiny vesicles, scarified, somewhat tender, ?folliculitis. HSV cx sent DoD visit for: occupational health / fitness exam Active Condition see web based PHA sf 600 for details. DoD Parent Education: Basic Baby Care Inactive Condition DoD URINARY TRACT INFECTION Inactive Condition 32 yo fema le at 32 0/7 wks GA with likely acute Urinary Tract Infection based on clinical hx with reactive NST. Low suspicion for pyelonephritis as pt is afebrile with no CVA tenderness. Will treat presumptively after discussion with Isael Garcia and Kamryn. Pt given rx for macrobid, counseled to keep all appts as scheduled. Next routine OB visit in 1 wk. Pt given strict return precautions. Pt expressed understanding. Pt counseled regardinh hydration. DoD Parent Education: Feeding Inactive Condition [facility] Ed 34-36 Week F/U Preparing For Breast Feeding Inactive Condition DoD sore throat Active Condition DoD FOLLICULITIS Active Condition DoD Supervision Of Normal First Inactive Condition Labor precautio ns discussed. GBS collected. F/U 2 weeks, sooner prn. Continue prophylactic acyclovir for HSV. DoD ARTHRALGIA OF TEMPOROMANDIBULAR JOINT Active Condition DoD OTITIS EXTERNA Inactive Condition DoD SCAR Active Condition doing well 9 days after scar revision. advised to continue to take it easy and avoid running and prolonged walking/standing/s itting. profile given for 1 month. DoD Patient Education Inactive Condition di scussed hpv---dysplasia/ca rcinoma-- DoD HUMAN PAPILLOMA VIRUS INFECTION Active Condition DoD Pap Smear (+) Low Grade Squamous Intraepithelial Lesion Inactive Condition DoD Abnormal Pap Smear: ASCUS Favor Dysplasia Inactive Condition DoD Cerv Pap Smear (+) Atyp Squamous Cells Undetermined Signif Inactive Condition DoD Removal Of Sutures Inactive Condition Do D Aftercare Following Surgery For Neoplasm Inactive Condition DoD BENIGN SKIN NEOPLASM Active Condition s/p 9 days from excision of right le skin dilated pore. no soi. sutures intact and then removed. fu prn. DoD SEBACEOUS CYST Active Condition cyst on right delgado. unsure of exact etiology and dx. will perform small excision for dx and tx on 28mar at 2pm. [facility] BENIGN SKIN NEOPLASM PIGMENTED NEVUS Active Condition scar on right c hin from shave of nevus with cells at base of bx. most likely seeing hyperpigmentation as scar continues to heal normally. reminded pt that this was one of the risks with that procedure and it is possible that scar area may remain hyperpigmented especially given nevus cells at base. recurrence is always a risk as well. pt overall expresses that she is pleased with outcome and much rather would prefer the scar with some pigmentation than the large nevus. education and reassurance given. fu prn DoD SKIN NEOPLASM UNCERTAIN BEHAVIOR Active Condition Pt is a 4 9yo WF with many yr h/o papule on right chin. enlarging over past yr. 6-7mm skin colored to red firm papule. Pt informed of risks, especially for her, inlcuding hypertrophic or keloid scar, unsatisfactory cosmetic outcome with hypopigmented or hyperpigmented scar, recurrence of lesion, need for further procedure. pt displays understanding and wishes to procede with shave bx and understands that clinicians opinion is that lesion is clinically very benign and there is no concern for malignancy now or in the future. DDX - benign nevus vs fibrous papule. DoD visit for: contraceptive surveillance Inactive Condition pap is due, pt agrees to schedule DoD Macules And Papules Inactive Condition [facility], nguyen was not working at the time of visit. [facility] Contraceptives Active Condition as above [facility] ROUTINE GYNECOLOGICAL EXAM WITH CERVICAL PAP SMEAR Inactive Condition DoD visit for: screening exam malignant neoplasm breast Inactive Condition [facility] Anticipatory Guidance: Osteoporosis Inactive Condition DoD visit for: screening exam chlamydial infections Inactive Condition [facility] visit for: contraceptive surveillance pill Inactive Condition [facility] CELLULITIS OF THE RIGHT LEG Inactive Condition [facility] Diagnosis: ICD-10-CM M79.672 Pain in left foot Active Diagnosis [facility] Diagnosis: ICD-10-CM M54.51 Vertebrogenic low back pain Active Diagnosis [facility] Diagnosis: ICD-10-CM N30.00 Acute cystitis without hematuria Active Diagnosis [facility] Diagnosis: ICD-10-CM Z01.00 Encounter for exam of eyes and vision w/o abnormal findings Active Diagnosis [facility] Diagnosis: ICD-10-CM K03.6 Deposits [accretions] on teeth Active Diagnosis [facility] Diagnosis: ICD-10-CM L73.9 Follicular disorder, unspecified Active Diagnosis [facility] Diagnosis: ICD-10-CM C44.91 Basal cell carcinoma of skin, unspecified Active Diagnosis [facility] Diagnosis: ICD-10-CM Z01.20 Encounter for dental exam and cleaning w/o abnormal findings Active Diagnosis [facility] Diagnosis: ICD-10-CM K05.00 Acute gingivitis, plaque induced Active Diagnosis [facility] Medications Combined list of outpatient medications from Department of Defense and [facility] Affairs facilities.Medications provided include 1) outpatient medications from the last 15 months, and 2) patient-reported medications. Medication Details Route Status Patient Instructions Prescription Expires Prescription Number Last Dispense Date Ordering Provider Order Date Order Qty Source calcipotrie ne 0.005% topical cream calcipot riene 0.005% topical cream Start Date: 09/09/20 Status: Ordered Repeat number: 1 Ordered 2020 No Facilit y Access CAPSAICIN 0.025% CREAM,TOP APPLY SPARINGL Y TO AFFECTED AREA(S) FOUR TIMES A DAY NEEDED FOR PAIN FOR EXTERNAL USE ONLY. WASH HANDS AFTER APPLICAT ION. TOPICA L ACTIVE 12/26/2025 [id number] GABY ANNA 2024 60 [facility] cephalexin 500 mg oral capsule 0 total refill(s ) Ordered 2020 No Facilit y Access cholecalcif juan daniel 125 mcg (5000 intl units) oral capsule cholecal ciferol 125 mcg (5000 intl units) oral capsule Start Date: 03/27/21 Status: Ordered Repeat number: 1 Ordered 2020 No Facilit y Access CHOLECALCIF JUAN DANIEL 25MCG (1,000UNIT) TAB TAKE ONE TABLET BY MOUTH ONCE A DAY FOR VITAMIN D DEFICIEN CY ORAL ACTIVE 03/31/2025 [id number] GABY ANNA 2023 100 [facility] CHOLECALCIF JUAN DANIEL 25MCG (1,000UNIT) TAB TAKE ONE TABLET BY MOUTH ONCE A DAY FOR VITAMIN D DEFICIEN CY ORAL DISCONT INUED 04/12/2024 [id number] Lonnie CLEANING 2022 100 [facility] ciprofloxac in 500 mg oral tablet 0 total refill(s ) Ordered 2020 No Facilit y Access clindamycin 1% topical solution clindamy huan 1% topical solution Start Date: 07/14/21 Status: Ordered Repeat number: 1 Ordered 2020 No Facilit y Access clobetasol 0.05% topical foam clobetas ol 0.05% topical foam Start Date: 07/14/21 Status: Ordered Repeat number: 1 Ordered 2020 No Facilit y Access clotrimazol e 1% topical cream clotrima zole 1% topical cream Start Date: 11/18/20 Status: Ordered Repeat number: 1 Ordered 2020 No Facilit y Access fluorouraci l 5% topical cream fluorour acil 5% topical cream Start Date: 09/09/20 Status: Ordered Repeat number: 1 Ordered 2020 No Facilit y Access GABAPENTIN 100MG CAP TAKE ONE CAPSULE BY MOUTH THREE TIMES A DAY FOR NERVE PAIN ORAL DISCONT INUED (EDIT) 12/26/2025 [id number] GABY ANNA 2024 90 [facility] GABAPENTIN 300MG CAP TAKE ONE CAPSULE BY MOUTH THREE TIMES A DAY FOR NERVE PAIN ORAL ACTIVE 01/22/2026 [id number] 5 GABY ANNA 2024 90 [facility] gabapentin 600 mg oral tablet gabapent in 600 mg oral tablet Start Date: 05/10/21 Status: Ordered Repeat number: 1 Ordered 2020 No Facilit y Access gabapentin 600 mg oral tablet gabapent in 600 mg oral tablet Start Date: 09/08/20 Status: Ordered Repeat number: 1 Ordered 2020 No Facilit y Access HYDROCODONE -ACETAMINOP HEN (hydrocodon e bitartrate/ acetaminoph en), 5 MG-325MG, TABLET, ORAL, CAMBER HYDROCOD ONE-ACET AMINOPHE N (hydroco done bitartra te/aceta minophen ), 5 MG-325MG , TABLET, ORAL, CAMBER Start Date: 02/03/21 Status: Ordered Repeat number: 1 Ordered 2020 No Facilit y Access LIDOCAINE 5% OINT,TOP APPLY LIGHTLY TO AFFECTED AREA(S) THREE TIMES A DAY NEEDED FOR PAIN TOPICA L ACTIVE 03/31/2025 [id number] 5 GABY ANNA 2023 105 [facility] LIDOCAINE 5% OINT,TOP APPLY LIGHTLY TO AFFECTED AREA(S) THREE TIMES A DAY NEEDED FOR PAIN TOPICA L DISCONT INUED 06/19/2024 [id number] NAIMA,AD AM 2022 105 [facility] methocarbam ol 500 mg oral tablet methocar bamol 500 mg oral tablet Start Date: 05/10/21 Status: Ordered Repeat number: 1 Ordered 2020 No Facilit y Access MULTIVITAMI NS CAP/TAB TAKE 1 TABLET BY MOUTH ONCE A DAY FOR NUTRITIO N/DIETAR Y SUPPLEME NTATION ORAL ACTIVE 03/31/2025 [id number] 5 GABY ANNA 2023 100 [facility] MULTIVITAMI NS CAP/TAB TAKE 1 TABLET BY MOUTH ONCE A DAY FOR NUTRITIO N/DIETAR Y SUPPLEME NTATION ORAL DISCONT INUED 04/12/2024 [id number] 4 Lonnie CLEANING [address] [place], [place] [address]IO N nitrofurant oin macrocrysta ls-monohydr ate 100 mg oral capsule 0 total refill(s ) Ordered 2020 No Facilit y Access OXYBUTYNIN CL 5MG TAB,SA TAKE ONE TABLET BY MOUTH ONCE A DAY FOR OVERACTI VE BLADDER SWALLO W WHOLE, DO NOT CRUSH OR CHEW. ORAL ACTIVE 03/09/2026 [id number] 5 GABY ANNA 2024 90 [facility] OXYBUTYNIN CL 5MG TAB,SA TAKE ONE TABLET BY MOUTH ONCE A DAY FOR OVERACTI VE BLADDER SWALLO W WHOLE, DO NOT CRUSH OR CHEW. ORAL DISCONT INUED 03/25/2025 [id number] GABY ANNA 2024 90 [facility] oxyCODONE 5 mg oral tablet oxyCODON E 5 mg oral tablet Start Date: 07/12/20 Status: Ordered Repeat number: 1 Ordered 2020 No Facilit y Access phenazopyri dine 200 mg oral tablet phenazop yridine 200 mg oral tablet Start Date: 02/19/21 Status: Ordered Repeat number: 1 Ordered 2020 No Facilit y Access selenium sulfide 2.5% topical lotion selenium sulfide 2.5% topical lotion Start Date: 07/14/21 Status: Ordered Repeat number: 1 Ordered 2020 No Facilit y Access SULFAMETHOX AZOLE 800MG/TRIME THOPRIM 160MG TAB TAKE 1 TABLET BY MOUTH EVERY 12 HOURS FOR URINARY TRACT INFECTIO N TAKE WITH WATER/AV OID SUNLIGHT . ORAL 09/12/2024 [id number] Papo TORIBIO 2023 20 [facility] tacrolimus 0.1% topical ointment tacrolim us 0.1% topical ointment Start Date: 07/14/21 Status: Ordered Repeat number: 1 Ordered 2020 No Facilit y Access traZODone 100 mg oral tablet traZODon e 100 mg oral tablet Start Date: 02/28/21 Status: Ordered Repeat number: 1 Ordered 2020 No Facilit y Access triamcinolo ne 0.1% topical ointment triamcin olone 0.1% topical ointment Start Date: 11/18/20 Status: Ordered Repeat number: 1 Ordered 2020 No Facilit y Access valACYclovi r 500 mg oral tablet 3 total refill(s ) Ordered 2020 No Facilit y Access VALACYCLOVI R HCL 500MG TAB TAKE ONE TABLET BY MOUTH ONCE A DAY FOR VIRAL INFECTIO N PREVENTI ON ORAL SUSPEND ED 03/09/2026 [id number] 5 GABY ANNA 2024 90 [facility] VALACYCLOVI R HCL 500MG TAB TAKE ONE TABLET BY MOUTH ONCE A DAY FOR VIRAL INFECTIO N PREVENTI ON ORAL DISCONT INUED 03/31/2025 [id number] 5 GABY ANNA 2023 90 [facility] VALACYCLOVI R HCL 500MG TAB TAKE ONE TABLET BY MOUTH ONCE A DAY FOR VIRAL INFECTIO N PREVENTI ON ORAL DISCONT INUED 04/12/2024 [id number] Lonnie CLEANING 2022 90 [facility] Allergies, Adverse Reactions, Alerts Combined list of allergies from Department of Defense and Veterans Affairs facilities. It does not include entries that were removed or entered in error. Substance Category Reaction Severity Reaction type Status Date Reported Comments Source PENICILLIN Propensity to adverse reactions to drug (finding) Eruption active 2 [facility] penicillins Propensity to adverse reactions to substance Rash Active 9 Unknown Organizati on PENICILLINS {Cla } Drug allergy (disorder) Rash active 9 [facility] [place] ([facility] Immunizations Combined list of available immunizations from the Department of Defense and Veterans Affairs facilities. Immunization Series Date Given Administered By Site Reaction Lot Number CVX Code Drug Production Stage Manager Status Comments Source INFLUENZA, UNSPECIFIED FORMULATION 2021 88 complet ed HISTORICA L INFORMATI ON - FROM PATIENT'S RECALL, [facility] COVID-19 (MODERNA), MRNA, LNP-S, PF, 100 MCG/0.5ML DOSE OR 50 MCG/0.25ML DOSE 3 2020 207 complet ed [facility] COVID-19, mRNA, LNP-S, PF, 100 mcg or 50 mcg dose 2020 YULISA Moderna Sovex[employer] Inc. (MOD) Not Given COVID-19, mRNA, LNP-S, PF, 100 mcg or 50 mcg dose [facility] INFLUENZA, UNSPECIFIED FORMULATION 2020 88 complet ed [facility] Influenza, injectable, quadrivalent, preservative free 1 2020 [id number] 150 [employer] (SKB) complet ed Influenza , injectabl e, quadrival ent, preservat jayden free [facility] tetanus-dipht h toxoids (Td) adult/adol 2020 [id number] sanofi pasteur complet ed tetanus-d iphth toxoids (Td) adult/ado l 06/16/21 Given Ambulat ory Pharmac y tetanus and diphtheria toxoids, adsorbed, preservative free, for adult use (2 Lf of tetanus toxoid and 2 Lf of diphtheria toxoid) 1 2020 [id number] Sanofi Pasteur (PMC) complet ed tetanus and diphtheri a toxoids, adsorbed, preservat jayden free, for adult use (2 Lf of tetanus toxoid and 2 Lf of diphtheri a toxoid) [facility] TDAP 2020 115 complet ed HISTORICA L INFORMATI ON - FROM PATIENT'S WRITTEN RECORD, [facility] COVID Vaccine Moderna 2020 [id number] complet ed COVID Vaccine Moderna 11/09/20 Given Ambulat ory Pharmac y COVID-19 (MODERNA), MRNA, LNP-S, PF, 100 MCG/0.5ML DOSE OR 50 MCG/0.25ML DOSE 2 2020 207 complet ed [facility] SARS-COV-2 (COVID-19) vaccine, mRNA, spike protein, LNP, preservative free, 100 mcg or 50 mcg dose 2 2020 [id number] 207 Moderna [employer], Inc. (MOD) complet ed SARS-COV- 2 (COVID-19 ) vaccine, mRNA, spike protein, LNP, preservat jayden free, 100 mcg or 50 mcg dose DoD COVID Vaccine Moderna 2020 [id number] 207 complet ed COVID Vaccine Moderna 10/12/20 Given Ambulat ory Pharmac y COVID-19 (MODERNA), MRNA, LNP-S, PF, 100 MCG/0.5ML DOSE OR 50 MCG/0.25ML DOSE 1 2020 207 complet ed [facility] SARS-COV-2 (COVID-19) vaccine, mRNA, spike protein, LNP, preservative free, 100 mcg or 50 mcg dose 1 2020 [id number] 207 Moderna Sovex[employer] Inc. (MOD) complet ed SARS-COV- 2 (COVID-19 ) vaccine, mRNA, spike protein, LNP, preservat jayden free, 100 mcg or 50 mcg dose [facility] influenza, injectable, quadrivalent- pf 2019 [id number] 150 Se[employer] complet ed influenza , injectabl e, quadrival ent-pf 08/11/20 Given Ambulat ory Pharmac y INFLUENZA, UNSPECIFIED FORMULATION 1 2019 88 complet ed HISTORICA L INFORMATI ON - FROM OTHER REGISTRY, [facility] Influenza, injectable, quadrivalent, preservative free 0 2019 [id number] 150 Se[employer]irus (SEQ) complet ed Influenza , injectabl e, quadrival ent, preservat jayden free DoD influenza, injectable, quadrivalent- pf 2018 [id number] 150 [employer] complet ed influenza , injectabl e, quadrival ent-pf 08/18/19 Given Ambulat ory Pharmac y Influenza, injectable, quadrivalent, preservative free 0 2018 [id number] 150 [employer] (SEQ) complet ed Influenza , injectabl e, quadrival ent, preservat jayden free DoD influenza, injectable, quadrivalent- pf 2017 [id number] 150 GlaxoSmithK[employer] ne complet ed influenza , injectabl e, quadrival ent-pf 08/06/18 Given Ambulat ory Pharmac y Influenza, injectable, quadrivalent, preservative free 22 2017 [id number] 150 [employer]Kline (SKB) complet ed Influenza , injectabl e, quadrival ent, preservat jayden free DoD Influenza, inj, MDCK, quadrivalent- pf 2016 [id number] 171 [employer] complet ed Influenza , inj, MDCK, quadrival ent-pf 08/12/17 Given Ambulat ory Pharmac y Influenza, injectable, Madin Lisseth Canine Kidney, preservative free, quadrivalent 21 2016 [id number] 171 [employer] (SEQ) comple t ed Influenza , injectabl e, Madin Lisseth Canine Kidney, preservat jayden free, quadrival ent DoD influenza, injectable, quadrivalent 2015 [id number] 158 GlaxoSmithKli ne complet ed influenza , injectabl e, quadrival ent 07/10/16 Given Ambulat ory Pharmac y influenza, injectable, quadrivalent, contains preservative 20 2015 [id number] 158 [employer] (SKB) complet ed influenza , injectabl e, quadrival ent, contains preservat jayden DoD influenza, injectable, quadrivalent 2014 [id number] 158 [employer] comple t ed influenza , injectabl e, quadrival ent 08/11/15 Given Ambulat ory Pharmac y influenza, injectable, quadrivalent, contains preservative 19 2014 [id number] 158 (IDB) complet ed influenza , injectabl e, quadrival ent, contains preservat jayden DoD influenza, live, intranasal,qu adrivalent 2013 [id number] 149 Medimmune Inc comple t ed influenza , live, intranasa l,quadriv alent 07/07/14 Given Ambulat ory Pharmac y influenza, live, intranasal, quadrivalent 1 2013 [id number] 149 MedImmune, Inc. (MED) complet ed influenza , live, intranasa l, quadrival ent DoD influenza, live, intranasal,qu adrivalent 2012 [id number] 149 Medimmune Inc comple t ed influenza , live, intranasa l,quadriv alent 07/01/13 Given Ambulat ory Pharmac y influenza, live, intranasal, quadrivalent 17 2012 [id number] 149 MedImmune, Inc. (MED) complet ed influenza , live, intranasa l, quadrival ent DoD influenza virus vaccine, live 2011 [id number] 111 Medimmune Inc comple t ed influenza virus vaccine, live 07/22/12 Given Ambulat ory Pharmac y influenza virus vaccine, live, attenuated, for intranasal use 16 2011 [id number] 111 MedImmune, Inc. (MED) complet ed influenza virus vaccine, live, attenuate d, for intranasa l use DoD tetanus, diphtheria, acellular pertu is 2010 [id number] 115 [facility] complet ed tetanus, diphtheri a, acellular pertussis 06/27/11 Given Ambulat ory Pharmac y influenza virus vaccine, live 2010 [id number] 111 Medimmune Inc comple t ed influenza virus vaccine, live 06/27/11 Given Ambulat ory Pharmac y influenza virus vaccine, live, attenuated, for intranasal use 15 2010 [id number] 111 MedImmune, Inc. (MED) complet ed influenza virus vaccine, live, attenuate d, for intranasa l use DoD tetanus toxoid, reduced diphtheria toxoid, and acellular pertu is vaccine, adsorbed 0 2010 [id number] 115 [facility] (SKB) complet ed tetanus toxoid, reduced diphtheri a toxoid, and acellular pertussis vaccine, adsorbed DoD influenza virus vaccine, live 2009 [id number] 111 [employer] [facility] t ed influenza virus vaccine, live 06/27/10 Given Ambulat ory Pharmac y typhoid Vi capsular polysaccharid e vac 2009 [id number] sanofi pasteur complet ed typhoid Vi capsular polysacch aride vac 06/27/10 Given Ambulat ory Pharmac y anthrax vaccine 2009 [id number] 24 [employer] complet ed anthrax vaccine 06/27/10 Given Ambulat ory Pharmac y anthrax vaccine 5 2009 [id number] [employer] (MIP) complet ed anthrax vaccine DoD typhoid Vi capsular polysaccharid e vaccine 1 2009 [id number] Sanofi Pasteur (PMC) complet ed typhoid Vi capsular polysacch aride vaccine DoD influenza virus vaccine, live, attenuated, for intranasal use 1 2009 [id number] 111 Med[employer] Inc. (MED) complet ed influenza virus vaccine, live, attenuate d, for intranasa l use DoD Novel influenza-H1N 1-09, injectable 2009 [id number] 1 127 Novartis Pharmaceutica ls complet ed Novel influenza -C2K9-37, injectabl e 10/12/09 Given Ambulat ory Pharmac y Novel influenza-H1N 1-09, injectable 1 2009 [id number] 127 Novartis Pharmaceutica l Ch[place]. (NOV) complet ed Novel influenza -D1J0-52, injectabl e DoD influenza virus vaccine, live 2008 [id number] 111 [employer] comple t ed influenza virus vaccine, live 07/08/09 Given Ambulat ory Pharmac y influenza virus vaccine, live, attenuated, for intranasal use 1 2008 [id number] 111 MedImmune, Inc. (MED) complet ed influenza virus vaccine, live, attenuate d, for intranasa l use DoD influenza virus vaccine,split 2007 [id number] 15 GlaxoSmithKli ne complet ed influenza virus vaccine,s plit 08/13/08 Given Ambulat ory Pharmac y influenza virus vaccine, split virus (incl. purified surface antigen)-reti red CODE 1 2007 [id number] 15 [facility] (SKB) complet ed influenza virus vaccine, split virus (incl. purified surface antigen)- retired CODE DoD influenza virus vaccine,split 2005 [id number] 15 sanofi pasteur complet ed influenza virus vaccine,s plit 08/12/06 Given Ambulat ory Pharmac y influenza virus vaccine, split virus (incl. purified surface antigen)-reti red CODE 1 2005 [id number] 15 Sanofi Pasteur ([facility]) complet ed influenza virus vaccine, split virus (incl. purified surface antigen)- retired CODE DoD tetanus-dipht h toxoids (Td) adult/adol 2005 [id number] 09 sanofi pasteur complet ed tetanus-d iphth toxoids (Td) adult/ado l 01/16/06 Given Ambulat ory Pharmac y tetanus and diphtheria toxoids, adsorbed, preservative free, for adult use (2 Lf of tetanus toxoid and 2 Lf of diphtheria toxoid) 1 2005 [id number] 09 Sanofi Pasteur ([facility]) complet ed tetanus and diphtheri a toxoids, adsorbed, preservat jayden free, for adult use (2 Lf of tetanus toxoid and 2 Lf of diphtheri a toxoid) DoD hepatitis B adult vaccine 2005 [id number] GlaxoSmithKli ne complet ed hepatitis B adult vaccine 12/23/05 Given Ambulat ory Pharmac y hepatitis B vaccine, adult dosage 3 2005 [id number] 43 SmithKline ([facility]) complet ed hepatitis B vaccine, adult dosage DoD influenza virus vaccine,split 2005 [id number] 15 sanofi pasteur complet ed influenza virus vaccine,s plit 10/09/05 Given Ambulat ory Pharmac y influenza virus vaccine, split virus (incl. purified surface antigen)-reti red CODE 1 2005 [id number] 15 Sanofi Pasteur ([facility]) complet ed influenza virus vaccine, split virus (incl. purified surface antigen)- retired CODE DoD anthrax vaccine 2004 24 complet ed anthrax vaccine 07/03/05 Given Ambulat ory Pharmac y anthrax vaccine 0 2004 24 () complet ed anthrax vaccine DoD hepatitis B adult vaccine 2004 [id number] 43 GlaxoSmithKli ne complet ed hepatitis B adult vaccine 06/18/05 Given Ambulat ory Pharmac y hepatitis B vaccine, adult dosage 2 2004 [id number] 43 SmithKline ([facility]) complet ed hepatitis B vaccine, adult dosage DoD typhoid vaccine, live, oral 2004 [id number] 25 [employer] complet ed typhoid vaccine, live, oral 05/17/05 Given Ambulat ory Pharmac y hepatitis B adult vaccine 2004 [id number] 43 [employer] tn complet ed hepatitis B adult vaccine 05/17/05 Given Ambulat ory Pharmac y typhoid vaccine, live, oral 1 2004 [id number] 25 [employer] Inc ([facility]) complet ed typhoid vaccine, live, oral DoD hepatitis B vaccine, adult dosage 1 2004 [id number] 43 [employer] ([place]) complet ed hepatitis B vaccine, adult dosage DoD influenza virus vaccine, live 2004 [id number] 111 [facility] t ed influenza virus vaccine, live 11/02/04 Given Ambulat ory Pharmac y influenza virus vaccine, live, attenuated, for intranasal use 0 2004 [id number] 111 [employer]. (MED) complet ed influenza virus vaccine, live, attenuate d, for intranasa l use DoD vaccinia (smallpox) vaccine 2003 [id number] [employer] complet ed vaccinia (smallpox ) vaccine 11/17/03 Given Ambulat ory Pharmac y anthrax vaccine 2003 [id number] [employer] complet ed anthrax vaccine 11/17/03 Given Ambulat ory Pharmac y anthrax vaccine 5 2003 [id number] 24 [employer] ([facility]) complet ed anthrax vaccine DoD vaccinia (smallpox) vaccine 0 2003 [id number] 75 [facility] ([facility]) complet ed vaccinia (smallpox ) vaccine DoD influenza virus vaccine, whole virus 2002 [id number] 16 sanofi pasteur complet ed influenza virus vaccine, whole virus 07/29/03 Given Ambulat ory Pharmac y influenza virus vaccine, whole virus 0 2002 [id number] 16 Sanofi Pasteur (PMC) complet ed influenza virus vaccine, whole virus DoD typhoid vaccine, inactivated 2002 [id number] 101 sanofi pasteur complet ed typhoid vaccine, inactivat ed 04/05/03 Given Ambulat ory Pharmac y typhoid vaccine, parenteral, other than acetone-kille d, dried 0 2002 [id number] 41 Sanofi Pasteur ([facility]) complet ed typhoid vaccine, parentera l, other than acetone-k illed, dried DoD influenza virus vaccine, whole virus 2001 [id number] 16 [facility] complet ed influenza virus vaccine, whole virus 08/19/02 Given Ambulat ory Pharmac y influenza virus vaccine, whole virus 0 2001 [id number] 16 Sanofi Pasteur ([facility]) complet ed influenza virus vaccine, whole virus DoD influenza virus vaccine, whole virus 2000 [id number] 16 [facility] paste[facility] complet ed influenza virus vaccine, whole virus 08/26/01 Given Ambulat ory Pharmac y influenza virus vaccine, whole virus 0 2000 [id number] 16 [facility]) complet ed influenza virus vaccine, whole virus DoD influenza virus vaccine, whole virus 2000 [id number] 16 [facility] complet ed influenza virus vaccine, whole virus 10/09/00 Given Ambulat ory Pharmac y influenza virus vaccine, whole virus 0 2000 [id number] 16 [facility] ([facility]) complet ed influenza virus vaccine, whole virus DoD anthrax vaccine 1999 [id number] 24 [employer] complet ed anthrax vaccine 02/01/00 Given Ambulat ory Pharmac y varicella virus vaccine 1 1999 21 () Not Given varicella virus vaccine DoD anthrax vaccine 4 1999 [id number] 24 [employer] ([facility]) complet ed anthrax vaccine DoD anthrax vaccine 1998 [id number] 24 [employer] complet ed anthrax vaccine 09/04/99 Given Ambulat ory Pharmac y anthrax vaccine 3 1998 [id number] 24 [employer] ([facility]) complet ed anthrax vaccine DoD anthrax vaccine 1998 [id number] 24 [employer] complet ed anthrax vaccine 08/08/99 Given Ambulat ory Pharmac y anthrax vaccine 2 1998 [id number] 24 [employer] ([facility]) complet ed anthrax vaccine DoD yellow fever vaccine 1998 [id number] 37 [facility] complet ed yellow fever vaccine 07/27/99 Given Ambulat ory Pharmac y meningococcal polysaccharid e (MPSV4) 1998 [id number] 32 [facility] complet ed meningoco ccal polysacch aride (MPSV4) 07/27/99 Given Ambulat ory Pharmac y meningococcal polysaccharid e vaccine (MPSV4) 0 1998 [id number] 32 [facility] (CON) complet ed meningoco ccal polysacch aride vaccine (MPSV4) DoD yellow fever vaccine 0 1998 [id number] 37 [facility] (CON) complet ed yellow fever vaccine DoD anthrax vaccine 1998 [id number] 24 [facility] [employer] complet ed anthrax vaccine 07/24/99 Given Ambulat ory Pharmac y influenza virus vaccine, whole virus 1998 [id number] 16 [facility] complet ed influenza virus vaccine, whole virus 07/24/99 Given Ambulat ory Pharmac y influenza virus vaccine, whole virus 0 1998 [id number] 16 [facility] (CON) complet ed influenza virus vaccine, whole virus DoD anthrax vaccine 1 1998 [id number] 24 [facility]) complet ed anthrax vaccine DoD influenza virus vaccine, whole virus 1997 UNKNOWN 16 [facility] complet ed influenza virus vaccine, whole virus 09/05/98 Given Ambulat ory Pharmac y influenza virus vaccine, whole virus 0 1997 UNKNOWN 16 [facility] ([facility]) complet ed influenza virus vaccine, whole virus DoD typhoid vaccine, live, oral 1997 [id number] 25 [employer] complet ed typhoid vaccine, live, oral 03/21/98 Given Ambulat ory Pharmac y typhoid vaccine, live, oral 0 1997 [id number] 25 [employer] [facility] ([facility]) complet ed typhoid vaccine, live, oral DoD influenza virus vaccine, whole virus 1996 [id number] 16 [employer] complet ed influenza virus vaccine, whole virus 08/25/97 Given Ambulat ory Pharmac y hepatitis A adult vaccine 1996 [id number] [facility] hepatitis A adult vaccine 08/25/97 Given Ambulat ory Pharmac y influenza virus vaccine, whole virus 0 1996 [id number] [facility] complet ed influenza virus vaccine, whole virus DoD hepatitis A vaccine, adult dosage 2 1996 [id number] 52 [facility] ([facility]) complet ed hepatitis A vaccine, adult dosage DoD hepatitis A adult vaccine 1995 [id number] 52 [facility] complet ed hepatitis A adult vaccine 08/07/96 Given Ambulat ory Pharmac y influenza virus vaccine, whole virus 1995 [id number] 16 [facility] complet ed influenza virus vaccine, whole virus 08/07/96 Given Ambulat ory Pharmac y influenza virus vaccine, whole virus 0 1995 [id number] [facility] ([facility] complet ed influenza virus vaccine, whole virus DoD hepatitis A vaccine, adult dosage 1 1995 [id number] 52 [facility] (CON) complet ed hepatitis A vaccine, adult dosage DoD measles/mumps /rubella virus vaccine 1995 [id number] 03 [employer]ck & Company Inc complet ed measles/m umps/rube lla virus vaccine 01/03/96 Given Ambulat ory Pharmac y meningococcal polysaccharid e (MPSV4) 1995 [id number] 32 [facility] complet ed meningoco ccal polysacch aride (MPSV4) 01/03/96 Given Ambulat ory Pharmac y tetanus-dipht h toxoids (Td) adult/adol 1995 [id number] 09 [facility] complet ed tetanus-d iphth toxoids (Td) adult/ado l 01/03/96 Given Ambulat ory Pharmac y poliovirus vaccine, live, oral 1995 [id number] 02 [employer] complet ed polioviru s vaccine, live, oral 01/03/96 Given Ambulat ory Pharmac y trivalent poliovirus vaccine, live, oral 0 1995 [id number] 02 [employer] ([facility]) comple t ed trivalent polioviru s vaccine, live, oral DoD measles, mumps and rubella virus vaccine 0 1995 [id number] 03 Merck (MSD) complet ed measles, mumps and rubella virus vaccine DoD tetanus and diphtheria toxoids, adsorbed, preservative free, for adult use (2 Lf of tetanus toxoid and 2 Lf of diphtheria toxoid) 0 1995 [id number] 09 [place] (CON) complet ed tetanus and diphtheri a toxoids, adsorbed, preservat jayden free, for adult use (2 Lf of tetanus toxoid and 2 Lf of diphtheri a toxoid) [facility] meningococcal polysaccharid e vaccine (MPSV4) 0 1995 [id number] 32 [place] (CON) complet ed meningoco ccal polysacch aride vaccine (MPSV4) DoD Results Combined list of recent chemistry, hematology and other laboratory results from Department of Defense and Veterans Affairs, ranging from 15 months to all on record, depending upon the facility. Order Name Results Value Reference Range Date Interpretation Specimen Comments Source VITAMIN D, 25-HYDROXY 25-HYDROXYV ITAMIN D3 [MASS/VOLUM E] IN SERUM OR PLASMA 57.2 ng/mL 30 - 96 03/30 Specimen Type: SERUM No comment entered. Ordering Provider: GABY ANNA Report Released Date/Time: Mar 30, 2024 11:51 AM Reporting Lab: [facility] [address] [place] [phone] Performing Lab: [facility] [address] [place] [phone] [facility] CBC LEUKOCYTES [#/VOLUME] IN BLOOD BY AUTOMATED COUNT 6.5 10*3/u L 3.6 - 11.2 03/30 Specimen Type: BLOOD No comment entered. Ordering Provider: GABY ANNA Report Released Date/Time: Mar 30, 2024 11:51 AM Reporting Lab: [facility] [address] [facility] [address] Performing Lab: [facility] [address] [place] [phone] [facility] CBC ERYTHROCYTE S [#/VOLUME] IN BLOOD BY AUTOMATED COUNT 5.00 10*6/u L 3.60 - 5.00 03/30 Specimen Type: BLOOD No comment entered. Ordering Provider: GABY ANNA Report Released Date/Time: Mar 30, 2024 11:51 AM Reporting Lab: [facility] [address] [place], [place] [phone] Performing Lab: [facility] [address] [facility] [address] [facility] CBC HEMOGLOBIN [MASS/VOLUM E] IN BLOOD 14.4 g/dL 11.0 - 14.9 03/30 Specimen Type: BLOOD No comment entered. Ordering Provider: GABY ANNA Report Released Date/Time: Mar 30, 2024 11:51 AM Reporting Lab: [place] [address] [facility] [address] Performing Lab: [address] [address] [facility] CBC HEMATOCRIT [VOLUME FRACTION] OF BLOOD 43.2 32.6 - 43.4 03/30 Specimen Type: BLOOD No comment entered. Ordering Provider: GABY ANNA Report Released Date/Time: Mar 30, 2024 11:51 AM Reporting Lab: [place] [address] [facility] [address] Performing Lab: [place] [address] [facility] [address] [facility] CBC MCV [ENTITIC VOLUME] BY AUTOMATED COUNT 86.4 fL 80.0 - 100.0 03/30 Specimen Type: BLOOD No comment entered. Ordering Provider: GABY ANNA Report Released Date/Time: Mar 30, 2024 11:51 AM Reporting Lab: [place] [address] [facility] [address] Performing Lab: [place] [address] [facility] [address] [facility] CBC MCH [ENTITIC MASS] BY AUTOMATED COUNT 28.8 pg 27.0 - 34.0 03/30 Specimen Type: BLOOD No comment entered. Ordering Provider: GABY ANNA Report Released Date/Time: Mar 30, 2024 11:51 AM Reporting Lab: [address] [address] Performing Lab: [facility] [address] [facility] [address] [facility] CBC MCHC [MASS/VOLUM E] BY AUTOMATED COUNT 33.3 g/dL 33.0 - 36.0 03/30 Specimen Type: BLOOD No comment entered. Ordering Provider: GABY ANNA Report Released Date/Time: Mar 30, 2024 11:51 AM Reporting Lab: [address] [address] Performing Lab: [address] [address] [facility] CBC PLATELETS [#/VOLUME] IN BLOOD BY AUTOMATED COUNT 347 10*3/u L 150 - 400 03/30 Specimen Type: BLOOD No comment entered. Ordering Provider: GABY ANNA Report Released Date/Time: Mar 30, 2024 11:51 AM Reporting Lab: [address] [address] Performing Lab: [place] [address] [facility] [address] [facility] CBC PLATELET MEAN VOLUME [ENTITIC VOLUME] IN BLOOD BY AUTOMATED COUNT 10.1 fL 7.5 - 11.2 03/30 Specimen Type: BLOOD No comment entered. Ordering Provider: GABY ANNA Report Released Date/Time: Mar 30, 2024 11:51 AM Reporting Lab: [address] [address] Performing Lab: [address] [address] [facility] CBC ERYTHROCYTE DISTRIBUTIO N WIDTH [RATIO] BY AUTOMATED COUNT 13.2 11.8 - 15.1 03/30 Specimen Type: BLOOD No comment entered. Ordering Provider: GABY ANNA Report Released Date/Time: Mar 30, 2024 11:51 AM Reporting Lab: [address] [address] Performing Lab: [facility] [address] [facility] [address] [facility] CBC LYMPHOCYTES /100 LEUKOCYTES IN BLOOD BY AUTOMATED COUNT 32 03/30 Specimen Type: BLOOD No comment entered. Ordering Provider: GABY ANNA Report Released Date/Time: Mar 30, 2024 11:51 AM Reporting Lab: [facility] [address] [facility] [address] Performing Lab: [facility] [address] [facility] [address] [facility] CBC MONOCYTES/1 00 LEUKOCYTES IN BLOOD BY AUTOMATED COUNT 7 03/30 Specimen Type: BLOOD No comment entered. Ordering Provider: GABY ANNA Report Released Date/Time: Mar 30, 2024 11:51 AM Reporting Lab: [facility] [address] [facility] [address] Performing Lab: [facility] [address] [facility] [address] [facility] CBC NEUTROPHILS /100 LEUKOCYTES IN BLOOD BY AUTOMATED COUNT 60 03/30 Specimen Type: BLOOD No comment entered. Ordering Provider: GABY ANNA Report Released Date/Time: Mar 30, 2024 11:51 AM Reporting Lab: [facility] [address] [facility] [address] Performing Lab: [facility] [address] [facility] [address] [facility] CBC EOSINOPHILS /100 LEUKOCYTES IN BLOOD BY AUTOMATED COUNT 1 03/30 Specimen Type: BLOOD No comment entered. Ordering Provider: GABY ANNA Report Released Date/Time: Mar 30, 2024 11:51 AM Reporting Lab: [facility] [address] [facility] [address] Performing Lab: [facility] [address] [facility] [address] [facility] CBC BASOPHILS/1 00 LEUKOCYTES IN BLOOD BY AUTOMATED COUNT 1 03/30 Specimen Type: BLOOD No comment entered. Ordering Provider: GABY ANNA Report Released Date/Time: Mar 30, 2024 11:51 AM Reporting Lab: [address] [address] Performing Lab: [facility] [address] [place] [phone] [facility] CBC LYMPHOCYTES [#/VOLUME] IN BLOOD BY AUTOMATED COUNT 2.08 10*3/u L 0.77 - 4.50 03/30 Specimen Type: BLOOD No comment entered. Ordering Provider: GABY ANNA Report Released Date/Time: Mar 30, 2024 11:51 AM Reporting Lab: [address] [address] Performing Lab: [address] [address] [facility] CBC MONOCYTES [#/VOLUME] IN BLOOD BY AUTOMATED COUNT 0.44 10*3/u L 0.19 - 0.80 03/30 Specimen Type: BLOOD No comment entered. Ordering Provider: GABY ANNA Report Released Date/Time: Mar 30, 2024 11:51 AM Reporting Lab: [address] [address] Performing Lab: [address] [address] [facility] CBC NEUTROPHILS [#/VOLUME] IN BLOOD BY AUTOMATED COUNT 3.90 10*3/u L 2.10 - 8.00 03/30 Specimen Type: BLOOD No comment entered. Ordering Provider: GBAY ANNA Report Released Date/Time: Mar 30, 2024 11:51 AM Reporting Lab: [address] [address] Performing Lab: [address] [address] [facility] CBC EOSINOPHILS [#/VOLUME] IN BLOOD BY AUTOMATED COUNT 0.04 10*3/u L 0.00 - 0.60 03/30 Specimen Type: BLOOD No comment entered. Ordering Provider: GABY ANNA Report Released Date/Time: Mar 30, 2024 11:51 AM Reporting Lab: [address] [address] Performing Lab: [address] [address] [facility] CBC BASOPHILS [#/VOLUME] IN BLOOD BY AUTOMATED COUNT 0.03 10*3/u L 0.00 - 0.20 03/30 Specimen Type: BLOOD No comment entered. Ordering Provider: GABY ANNA Report Released Date/Time: Mar 30, 2024 11:51 AM Reporting Lab: [address] [address] Performing Lab: [address] [address] [facility] COMPREHENS JAYDEN METABOLIC PANEL CREATININE [MASS/VOLUM E] IN SERUM OR PLASMA 0.87 mg/dL 0.6 - 1.1 03/30 Specimen Type: PLASMA Comment: No hemolysis noted. Ordering Provider: GABY ANNA Report Released Date/Time: Mar 30, 2024 11:51 AM Reporting Lab: [address] [address] Performing Lab: [address] [address] [facility] COMPREHENS JAYDEN METABOLIC PANEL UREA NITROGEN [MASS/VOLUM E] IN SERUM OR PLASMA 16.3 mg/dL 9.0 - 25.0 03/30 Specimen Type: PLASMA Comment: No hemolysis noted. Ordering Provider: GABY ANNA Report Released Date/Time: Mar 30, 2024 11:51 AM Reporting Lab: [address] [address] Performing Lab: [address] [address] [facility] COMPREHENS [employer]AYDEN METABOLIC PANEL GLUCOSE [MASS/VOLUM E] IN SERUM OR PLASMA 99 mg/dL 72 - 99 03/30 Specimen Type: PLASMA Comment: No hemolysis noted. Ordering Provider: GABY ANNA Report Released Date/Time: Mar 30, 2024 11:51 AM Reporting Lab: [place] [address] [address] [facility] [address] Performing Lab: [place] [address] [facility] [address] [facility] COMPREHENS JAYDEN METABOLIC PANEL SODIUM [MOLES/VOLU ME] IN SERUM OR PLASMA 138 meq/L 136 - 145 03/30 Specimen Type: PLASMA Comment: No hemolysis noted. Ordering Provider: GABY ANNA Report Released Date/Time: Mar 30, 2024 11:51 AM Reporting Lab: [place] [address] [facility] [address] Performing Lab: [place] [address] [facility] [address] [facility] COMPREHENS [employer]AYDEN METABOLIC PANEL POTASSIUM [MOLES/VOLU ME] IN SERUM OR PLASMA 4.0 meq/L 3.5 - 5 03/30 Specimen Type: PLASMA Comment: No hemolysis noted. Ordering Provider: GABY ANNA Report Released Date/Time: Mar 30, 2024 11:51 AM Reporting Lab: [place] [address] [facility] [address] Performing Lab: [place] [address] [facility] [address] [facility] COMPREHENS [employer]AYDEN METABOLIC PANEL CHLORIDE [MOLES/VOLU ME] IN SERUM OR PLASMA 104 meq/L 98 - 107 03/30 Specimen Type: PLASMA Comment: No hemolysis noted. Ordering Provider: GABY ANNA Report Released Date/Time: Mar 30, 2024 11:51 AM Reporting Lab: [place] [address] [facility] [address] Performing Lab: [address] [place] [address] [facility] COMPREHENS JAYDEN METABOLIC PANEL CARBON DIOXIDE, TOTAL [MOLES/VOLU ME] IN SERUM OR PLASMA 26 meq/L 22 - 31 03/30 Specimen Type: PLASMA Comment: No hemolysis noted. Ordering Provider: GABY ANNA Report Released Date/Time: Mar 30, 2024 11:51 AM Reporting Lab: [address] [address] Performing Lab: [address] [address] [facility] COMPREHENS JAYDEN METABOLIC PANEL CALCIUM [MASS/VOLUM E] IN SERUM OR PLASMA 9.2 mg/dL 8.4 - 10.4 03/30 Specimen Type: PLASMA Comment: No hemolysis noted. Ordering Provider: GABY ANNA Report Released Date/Time: Mar 30, 2024 11:51 AM Reporting Lab: [address] [address] Performing Lab: [address] [address] [facility] COMPREHENS JAYDEN METABOLIC PANEL PROTEIN [MASS/VOLUM E] IN SERUM OR PLASMA 7.3 g/dL 6 - 8.6 03/30 Specimen Type: PLASMA Comment: No hemolysis noted. Ordering Provider: GABY ANNA Report Released Date/Time: Mar 30, 2024 11:51 AM Reporting Lab: [address] [address] Performing Lab: [address] [address] [facility] COMPREHENS JAYDEN METABOLIC PANEL ALBUMIN [MASS/VOLUM E] IN SERUM OR PLASMA 4.4 g/dL 3.4 - 5 03/30 Specimen Type: PLASMA Comment: No hemolysis noted. Ordering Provider: GABY ANNA Report Released Date/Time: Mar 30, 2024 11:51 AM Reporting Lab: [address] [place] [address] Performing Lab: [place] [address] [facility] [address] [facility] COMPREHENS JAYDEN METABOLIC PANEL BILIRUBIN.T OTAL [MASS/VOLUM E] IN SERUM OR PLASMA 0.4 mg/dL 0.2 - 1.2 03/30 Specimen Type: PLASMA Comment: No hemolysis noted. Ordering Provider: GABY ANNA Report Released Date/Time: Mar 30, 2024 11:51 AM Reporting Lab: [place] [address] [facility] [address] Performing Lab: [place] [address] [facility] [address] [place] [address] COMPREHENS JAYDEN METABOLIC PANEL ALKALINE PHOSPHATASE [ENZYMATIC ACTIVITY/VO LUME] IN SERUM OR PLASMA 64 U/L 40 - 150 03/30 Specimen Type: PLASMA Comment: No hemolysis noted. Ordering Provider: GABY ANNA Report Released Date/Time: Mar 30, 2024 11:51 AM Reporting Lab: [place] [address] [facility] [address] Performing Lab: [place] [address] [facility] [address] [facility] COMPREHENS JAYDEN METABOLIC PANEL ASPARTATE AMINOTRANSF ERASE [ENZYMATIC ACTIVITY/VO LUME] IN SERUM OR PLASMA 20 U/L 5 - 34 03/30 Specimen Type: PLASMA Comment: No hemolysis noted. Ordering Provider: GABY ANNA Report Released Date/Time: Mar 30, 2024 11:51 AM Reporting Lab: [place] [address] [facility] [address] Performing Lab: [address] [address] [facility] COMPREHENS JAYDEN METABOLIC PANEL ALANINE AMINOTRANSF ERASE [ENZYMATIC ACTIVITY/VO LUME] IN SERUM OR PLASMA 11 U/L 8 - 40 03/30 Specimen Type: PLASMA Comment: No hemolysis noted. Ordering Provider: GABY ANNA Report Released Date/Time: Mar 30, 2024 11:51 AM Reporting Lab: [facility] [address] [place] [phone] Performing Lab: [facility] [address] [facility] [address] [facility] COMPREHENS JAYDEN METABOLIC PANEL GLOMERULAR FILTRATION RATE/1.73 SQ M.PREDICTED [VOLUME RATE/AREA] IN SERUM, PLASMA OR BLOOD BY CREATININE- BASED FORMULA (CKD-EPI 2020) 82.6 60 03/30 Specimen Type: PLASMA Comment: No hemolysis noted. Ordering Provider: GABY ANNA Report Released Date/Time: Mar 30, 2024 11:51 AM Reporting Lab: [facility] [address] [place] [phone] Performing Lab: [address] [address] [facility] LIPID PANEL (STL) CHOLESTEROL [MASS/VOLUM E] IN SERUM OR PLASMA 191 mg/dL 0 - 200 03/30 Specimen Type: PLASMA Comment: No hemolysis noted. Ordering Provider: GABY ANNA Report Released Date/Time: Mar 30, 2024 11:51 AM Reporting Lab: [facility] [address] [place] [address] Performing Lab: [address] [address] [facility] LIPID PANEL (STL) TRIGLYCERID E [MASS/VOLUM E] IN SERUM OR PLASMA 97 mg/dL 0 - 150 03/30 Specimen Type: PLASMA Comment: No hemolysis noted. Ordering Provider: GABY ANNA Report Released Date/Time: Mar 30, 2024 11:51 AM Reporting Lab: [facility] [address] [facility] [address] Performing Lab: [address] [address] [facility] LIPID PANEL (STL) CHOLESTEROL IN LDL [MASS/VOLUM E] IN SERUM OR PLASMA BY CALCULATION 114 mg/dL 03/30 Specimen Type: PLASMA Comment: No hemolysis noted. Ordering Provider: GABY ANNA Report Released Date/Time: Mar 30, 2024 11:51 AM Reporting Lab: [place] [address] [facility] [address] Performing Lab: [address] [address] [facility] LIPID PANEL (STL) CHOLESTEROL IN HDL [MASS/VOLUM E] IN SERUM OR PLASMA 58 mg/dL 40 03/30 Specimen Type: PLASMA Comment: No hemolysis noted. Ordering Provider: GABY ANNA Report Released Date/Time: Mar 30, 2024 11:51 AM Reporting Lab: [address] [address] Performing Lab: [address] [address] [facility] HGA1C HEMOGLOBIN A1C/HEMOGLO BIN.TOTAL IN BLOOD 5.4 4.0 - 6.0 03/30 Specimen Type: BLOOD No comment entered. Ordering Provider: GABY ANNA Report Released Date/Time: Mar 30, 2024 11:51 AM Reporting Lab: [place] [address] [facility] [address] Performing Lab: [address] [address] [facility] TSH W/ REFLEX FT4 (STL) THYROTROPIN [UNITS/VOLU ME] IN SERUM OR PLASMA 1.603 u[IU]/ mL 0.47 - 5 03/30 Specimen Type: PLASMA No comment entered. Ordering Provider: GABY ANNA Report Released Date/Time: Mar 30, 2024 11:52 AM Reporting Lab: [place] [address] [facility] [address] Performing Lab: [address] [address] [facility] Vital Signs Combined list of inpatient and outpatient Vital Signs from Department of Defense and Veterans Affairs, ranging from 12 months to all on record, depending upon the facility. Vital Sign Value Date Comments Source SYSTOLIC BLOOD PRESSURE 131 12/25/2024 08:31:29 [facility] DIASTOLIC BLOOD PRESSURE 89 12/25/2024 08:31:29 [facility] PULSE OXIMETRY 99 12/25/2024 08[facility]31:29 [facility] 4 12/25/2024 08:31:29 [facility] TEMPERATURE 98 12/25/2024 08:31:29 [facility] PULSE 89 12/25/2024 08:31:29 [facility] RESPIRATION 18 12/25/2024 08:31:29 [facility] SYSTOLIC BLOOD PRESSURE 143 08/13/2024 14:43:38 [facility] DIASTOLIC BLOOD PRESSURE 84 08/13/2024 14:43:38 [facility] PULSE OXIMETRY 100 08/13/2024 14:43:38 [facility] WEIGHT 132.5 08/13/2024 14:43:38 [facility] BMI 21 kg/m2 08/13/2024 14:43:38 [facility] PAIN 1 08/13/2024 14:43:38 [facility] TEMPERATURE 97.9 08/13/2024 14:43:38 [facility] PULSE 71 08/13/2024 14:43:38 [facility] RESPIRATION 18 08/13/2024 14:43:38 [facility] SYSTOLIC BLOOD PRESSURE 134 03/30/2024 11:36:49 [facility] DIASTOLIC BLOOD PRESSURE 74 03/30/2024 11:36:49 [facility] PULSE OXIMETRY 98 03/30/2024 11:36:49 [facility] WEIGHT 181.5 03/30/2024 11:36:49 . K[facility] BMI 28 kg/m2 03/30/2024 11:36:49 . Kasi [facility] PAIN 0 03/30/2024 11:36:49 [facility] 67 03/30/2024 11:36:49 [facility] TEMPERATURE 97.8 03/30/2024 11:36:49 . [facility] PULSE 59 03/30/2024 11:36:49 . Kasi [facility] RESPIRATION 20 03/30/2024 11:36:49 [facility] Encounters Combined list of: 1) Encounters from Department of Veterans Affairs facilities going backup to the last 18 months, not all VA inpatient encounters are included; 2) Encounters from the Department of Defense facilities going backup to 280 months. Location Location Details Encounter Type Encounter Number Reason For Visit Attending Provider ADM Date DC Date Status Disposition Source [facility]([address] [facility]) OUTPATIENT [id number] spider bite on rght leg worseni ng x 2dys BARRINGTON MANCILLA 03/27 [facility]ased w/[facility] Limitations [facility] [address] [facility] OUTPATIENT [id number] annual pap/pe NATALEE VENTURA 06/18 Released w/o Limitations [facility]) [facility](War rior Operation al Med A-AD) TELE CONSULT [id number] ortho tyi-cyc josue 28 renwal request DELETED_SILVANO JOE 07/18 [facility](W arrior Operati onal Med A-AD) [place] [address]([facility] [employer], [employer]) OUTPATIENT [id number] Mole on face ANMOL MADRIGAL 10/03 Released w/o Limitations [facility] [place] [address](P dennis [employer], [employer]) [place] [address]([facility]) OUTPATIENT [id number] eval for mole removal on face TYRELL RUSS 10/21 Released w/o Limitations [employer] [place] [address](D ermatol ogy [facility]) [place] [address]([facility] OUTPATIENT [id number] LIVIAMILLA RODRIGUEZ GERRI 12/10 Released w/o Limitations [facility] [employer] [facility] [place] [address](D ermatol ogy [facility]) [place] [address]([facility]) OUTPATIENT [id number] MARISOL NICHOLS 12/25 Released w/o Limitations [employer] [facility] [place] [address](D ermatol ogy [facility]) [place] [address]([facility]) OUTPATIENT [id number] MILLA TEJADA 01/03 Released w/o Limitations [employer] [place] [address]([facility] [place] [address]([facility], [employer]) TELE CONSULT [id number] PAP RESULTS VILLANUEVAROSAMARIA Barros Lonnie 02/19 [employer] [place] [address]([facility], [employer]) [place] [address](Pediatric Hospitalist [facility]) OUTPATIENT [id number] 1st time colpo ZAFAR KINNEY 03/24 Released w/o Limitations [employer] [place] [address](Blanca ynecotanya gy [facility]) [place] [address]([facility]ad [facility]) OUTPATIENT [id number] F/U FOR PREVIOU S SURGERY DONE TO RIGHT LEG.... PER PT TYRELL RUSS 04/21 Released w/o Limitations [employer] [place] [address](D ermatol ogy [facility]) [place] [address](Clare caryn Care Blue Team, [employer]) OUTPATIENT [id number] Ear Infecti on FLAKITO PERKINS D 05/19 Released w/o Limitations [employer] [place] [address](P [facility], [employer]) [place] [address](Clare [facility] Blue Team, [employer]) OUTPATIENT [id number] w/i JERED ASHBY 07/10 Released w/o Limitations [employer] [place] [address](P [facility] Care Blue [facility], [employer]) [place] [address](Obs tetrics [facility], [facility]) OUTPATIENT [id number] OB ARMAND JO 07/30 Released w/o Limitations [facility] [place] [address](O bstetri [facility], [facility]) [place] [address](ZZP [facility] Red Team, [employer]) OUTPATIENT [id number] rashjodee SAMUEL B 08/18 Released w/o Limitations [employer] [place] [address](Z ZPrimar y Care Red Team, [employer]) [place] [address](Obs tetrics [facility]) OUTPATIENT [id number] 16 week ARMAND COLE E 09/05 Released w/o Limitations [employer] [place] [address](O bstetri [facility], [facility]) [place] [address](Pediatric Hospitalist ecology [facility], [facility]) OUTPATIENT [id number] 20wks w NV, cough, diarrhe a, UA ordered MOLINATASHAA E 10/06 Sick at Home/Quarter s [employer] [place] [address]([facility], [facility]) [place] [address](Obs tetrics [facility]) OUTPATIENT [id number] 24 WEEK ARMAND COLE E 11/07 Released w/o Limitations [place] [address](O bstetri cs [facility]) [place] [address](Obs tetrics [facility]) OUTPATIENT [id number] ninfa 28 weeks JAYME PEGUERO N 12/04 Released w/o Limitations [facility] [address](O bstetri cs [facility]) [place] [address]([facility]) OUTPATIENT [id number] breast feeding SERINA MC S 12/16 Released w/o Limitations [place] [address]([facility]) [place] [address]([facility] OUTPATIENT [id number] UTI ALISON WESLEY 01/01 Released w/o Limitations [place] [address](T [facility]) [place] [address](Obs tetrics [facility]) OUTPATIENT [id number] 32wk/ro b JAYME PEGUERO N 01/01 Released w/o Limitations [place] [address](O bstetri cs [facility]) [place] [address](ZJayeshP [facility], [employer]) OUTPATIENT [id number] pha SILVIANO WILKS 01/04 Released w/o Limitations [facility] [place] [address](Z JayeshPrimadesi y Care Red Team, [employer]) [place] [address](Ped [facility]) OUTPATIENT [id number] PARENTI NG NICHOLAS HENSON 01/06 Released w/o Limitations [facility] [place] [address](P ediatri cs, [facility]) [place] [address](Pediatric Hospitalist ecology Clinic, [facility]) OUTPATIENT [id number] rash on pubic area RAGHU ANDERSON W 01/14 Released w/o Limitations [place] [address](G [facility] gy [facility], [facility]) [place] [address](Pediatric Hospitalist ecology [facility], [facility]) TELE CONSULT [id number] Lab Results RAGHU ANDERSON W 01/19 [place] [address]([facility], [facility]) [place] [address](Obs tetrics [facility]) OUTPATIENT [id number] NINFA/36 WEEKS SHANNON CARTAGENA 01/29 [facility]ased w/o Limitations [facility] [place] [place] [address](O bstetri cs [facility], [facility]) [place] [address](Obs tetrics [facility]) OUTPATIENT [id number] 38wk JG MOTLEY 02/15 Released w/o Limitations [employer] [place] [address](O bstetri cs [facility], [facility]) [place] [address] DIRECT TO [facility] FROM OTHER THAN OR [facility] [id number] CROW MEYERS 02/18 RETURNED TO DUTY [employer] [place] [address] [place] [address]([facility]) OUTPATIENT [id number] NAZ WONG 03/11 Released w/o Limitations [employer] [place] [address]([place] [facility] [place] [address]([facility]) OUTPATIENT [id number] NAZ WONG 03/30 Released w/o Limitations [employer] [place] [address]([facility] N[facility]) [place] [address](Shahzad matology, [facility]) OUTPATIENT [id number] w/c NAZ WONG 04/08 Released w/o Limitations [employer] [place] [address]([place] [facility]) [place] [address](Pediatric Hospitalist ecology Clinic, [facility]) OUTPATIENT [id number] ppm KATHLEEN AUGUSTE Papo 04/09 Released w/o Limitations [employer] [place] [address](G ynecolo gy [facility], [facility]) [place] [address]([facility] Care Blue Team, [employer]) OUTPATIENT [id number] ACUTE EAR INF./RA FB CLIFF MATIAS 06/02 Released w/o Limitations [employer] [place] [address](P [facility], [employer]) [place] [address](Opt ometry Clinic,RA FB) OUTPATIENT [id number] ROUTINE EYE EXAM/OP T NAZ JAUREGUI 06/08 Released w/o Limitations [employer] [place] [address](O ptometr y Clinic, [employer]) [place] [address](Pediatric Hospitalist ecology Clinic, [facility]) OUTPATIENT [id number] IUD Inserti on/told to come in for KEISHA Houser 07/27 Released w/o Limitations [employer] [place] [address]([facility], [facility]) [place] [address]([facility] Care Red Team, [employer]) OUTPATIENT [id number] control rx OSWALDO WARNER 08/12 Released w/o Limitations [employer] [place] [address](Z [employer] y Care Red Team, [employer]) [place] [address]([facility] Care Red Team, [employer]) OUTPATIENT [id number] stomach flu KEOLASY, ANITRA P 09/13 Released w/o Limitations [employer] [place] [address](Z Z[employer]ar y Care Red Team, [employer]) [place] [address]([facility] Care Red Team, [employer]) OUTPATIENT [id number] w/i ankle injury YARED RAND 11/01 Released with Work/Duty Limitations [employer] [place] [address](Z ZPrimar y Care Red Team, [employer]) [place] [address]([facility] Care Blue Team, [employer]) OUTPATIENT [id number] stomach pain... [employer] Blue 1 KING ROBERSON Rudolph 01/05 Sick at Home/Quarter s [employer] [place] [address](P rimary Care Blue Team, [employer]) [place] [address]([facility] Care Blue Team, [employer]) OUTPATIENT [id number] Ankle pain FLAKITO PERKINS 01/13 Released w/o Limitations [employer] [place] [address](P [facility] Blue Team, [employer]) [place] [address]([facility] Care Red Team, [employer]) OUTPATIENT [id number] ANTOLIN DONG 01/18 Released w/o Limitations [employer] [place] [address](Z ZPrimar y Care Red Team, [employer]) [place] [address](Manuely sical Therapy Clinic,RA FB) OUTPATIENT [id number] ANKLE SPRAIN TIBIOFI BULAR LIGAMEN T ANTERIO R RIGHT pt except this date NANCIE MCCLOUD 02/07 Released w/o Limitations [employer] [place] [address](P hysical Therapy Clinic, [employer]) [place] [address]([facility], [facility]) DENTAL [id number] JORGE OLEA 05/13 Released w/o Limitations [employer] [place] [address](D ental Clinic, [employer]) [place] [address]([facility] Care Red Team, [employer]) OUTPATIENT [id number] sinus infecti on KEOLASY, ANITRA P 05/20 Released w/o Limitations [employer] [place] [address]([facility] Care Red Team, [employer]) [place] [address]([facility], [facility]) OUTPATIENT [id number] 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 JADA ALONSO 05/31 Released w/o Limitations [employer] [place] [address]([facility], [employer]) [place] [address]([facility] Red Team, [employer]) OUTPATIENT [id number] rash both legs KEOLASY, ANITRA P 06/01 Released w/o Limitations [facility] [place] [address]([facility] Care Red Team, [employer]) [place] [address]([facility] Red Team, [employer]) OUTPATIENT [id number] flu like sx and sinus infecti on,rafb / STEVE, JAZIEL Q 08/17 Released w/o Limitations [employer] [place] [address]([facility] Care Red Team, [employer]) [place] [address]([facility] Red Team, [employer]) OUTPATIENT [id number] RASH ON BODY STEVE, JAZIEL Q 10/20 Released w/o Limitations [employer] [place] [address]([facility] Care Red Team, [employer]) [place] [address]([facility] Red Team, [employer]) OUTPATIENT [id number] Rash on skin KEOLASY, ANITRA P 11/01 Released w/o Limitations [employer] [place] [address]([facility] Care Red Team, [employer]) [place] [address]([facility] Care Red Team, [employer]) OUTPATIENT [id number] Sore throat, fever GREGORIO, FLAKITO D 11/04 Released w/o Limitations [employer] [place] [address](Z ZPrimar y Care Red Team, [employer]) [place] [address]([facility] Med Shyla Team, [employer]) OUTPATIENT [id number] wrist pain GREGORIO, FLAKITO D 12/22 Released w/o Limitations [employer] [place] [address](F am Med Crocket t Team, [employer]) [place] [address]([facility],RA FB) OUTPATIENT [id number] Non Fly PHA KAROL KING J 02/17 Released w/o Limitations [employer] [place] [address]( light Medicin e Clinic, [employer]) [place] [address]([facility]) OUTPATIENT [id number] JADA ARTEAGA 06/08 Released w/o Limitations [employer] [place] [address]([facility], [employer]) [place] [address]( AD Outpt [employer]) OUTPATIENT [id number] JEANNIE Beck 06/21 Released w/o Limitations [employer] [place] [address](B H AD Outpt [employer]) [place] [address]([facility], [employer]) TELE CONSULT [id number] med JADA Du 06/26 [employer] [place] [address]([facility], [employer]) [place] [address]([facility] Med Shyla Team, [employer]) OUTPATIENT [id number] cough crocket t/rafOSWALDO Arnett 07/12 Released w/o Limitations [employer] [place] [address](F am Med Crocket t Team, [employer]) [place] [address]([facility] Med [place] Team, [employer]) OUTPATIENT [id number] Cough OSWALDO WARNER 07/20 Released w/o Limitations [employer] [place] [address](F am Med Crocket t Team, [employer]) [place] [address]([facility] Med [place] Team, [employer]) OUTPATIENT [id number] Sciatic Nerve Problem s SELENE SANTANA 01/25 Released w/o Limitations [employer] [place] [address](F am Med Crocket t Team, [employer]) [place] [address]([facility] sical Therapy Clinic,RA FB) OUTPATIENT [id number] SCIATIC A NAVEEDFelipeJOSSYJESICA F 02/07 Released w/o Limitations [facility] [place] [address](P hysical Therapy Clinic, [employer]) [place] [address]([facility] Med [place] Team, [employer]) OUTPATIENT [id number] EVAL/ CONTROL / [employer] SELENE SANTANA 02/19 Released w/o Limitations [facility] [place] [address](F am Med Crocket t Team, [employer]) [place] [address]([facility] sical Therapy Clinic,RA FB) OUTPATIENT [id number] JESICA BRAVO 02/28 Released w/o Limitations [employer] [place] [address](P hysical Therapy Clinic, [employer]) [place] [address]([facility] Med Shyla Team, [employer]) TELE CONSULT [id number] KANG Mclean 03/06 Referred for Appointment [employer] [place] [address](F am Med Crocket t Team, [employer]) [place] [address]([facility] sical Therapy Clinic,RA FB) OUTPATIENT [id number] ROBYN BARAJAS 03/12 Released w/o Limitations [facility] [place] [address](P hysical Therapy Clinic, [employer]) [place] [address]([facility] sical Therapy Clinic,RA FB) OUTPATIENT [id number] STELLA STEPHENSON 03/14 Released w/o Limitations [employer] [place] [address](P hysical Therapy Clinic, [employer]) [place] [address]([facility] Med Shyla Team, [employer]) OUTPATIENT [id number] Refill for sciatic pain MAXSELENE Lonnie 03/15 Released w/o Limitations [employer] [place] [address](F Med Manisha haile Team, [employer]) [place] [address]([facility],RA FB) OUTPATIENT [id number] STELLA STEPHENSON 03/16 Released w/o Limitations [employer] [place] [address]([facility], [facility]) [place] [address]([facility],RA FB) OUTPATIENT [id number] BRIGIDA DELAROSA 03/20 Released w/o Limitations [employer] [place] [address]([facility], [facility]) [place] [address]([facility],RA FB) OUTPATIENT [id number] BRIGIDA DELAROSA 03/22 Released w/o Limitations [employer] [place] [address]([facility], [facility]) [place] [address]([facility],RA FB) OUTPATIENT [id number] STELLA STEPHENSON 03/26 Released w/o Limitations [employer] [place] [address]([facility], [facility]) [place] [address]([facility],RA FB) OUTPATIENT [id number] JESICA BRAVO 03/28 Released w/o Limitations [employer] [place] [address]([facility], [facility]) [place] [address]([facility],RA FB) OUTPATIENT [id number] ROBYN BARAJAS 04/04 Released w/o Limitations [employer] [place] [address]([facility], [facility]) [place] [address]([facility] Shyla Team, [employer]) TELE CONSULT [id number] DHA#3/P DHRA appt needed KARIN DOE 04/10 Referred for Appointment [employer] [place] [address]([facility], [employer]) [place] [address]([facility],RA FB) OUTPATIENT [id number] YOUSIF PARRA SWINK 04/11 Released w/o Limitations [employer] [place] [address]([facility], [facility]) [place] [address]([facility],RA FB) OUTPATIENT [id number] [facility] 04/13 Released w/o Limitations [employer] [place] [address]([facility], [employer]) [place] [address]([facility],RA FB) OUTPATIENT [id number] [facility] 04/16 Released w/o Limitations [employer] [place] [address]([facility], [facility]) [place] [address]([facility],RA FB) OUTPATIENT [id number] BRIGIDA DELAROSA 04/20 Released w/o Limitations [employer] [place] [address]([facility], [employer]) [place] [address]([facility] [place] Team, [employer]) OUTPATIENT [id number] DHA#3/P DHRA appt SELENE SANTANA 04/20 Released w/o Limitations [place] [address](F [facility] Manisha t Team, [employer]) [place] [address]([facility],RA FB) OUTPATIENT [id number] ZAYNABFLORI ALMENDAREZLonnie Mendosa 04/24 [facility] Limitations [facility] [place] [address]([facility], [employer]) [place] [address]([facility],RA FB) OUTPATIENT [id number] JESICA BRAVO 05/08 Released w/o Limitations [employer] [place] [address]([facility], [employer]) [place] [address]([facility],RA FB) OUTPATIENT [id number] NICA PARRA SWINK 05/21 [facility]ased w/o Limitations [facility] [place] [address]([facility], [employer]) [place] [address]([facility],RA FB) OUTPATIENT [id number] BRIGIDA DELAROSA 06/05 Released w/o Limitations [employer] [place] [address]([facility], [employer]) [place] [address]([facility],RA FB) OUTPATIENT [id number] BRIGIDA DELAROSA 06/07 Released w/o Limitations [employer] [place] [address]([facility], [employer]) [place] [address]([facility],RA FB) OUTPATIENT [id number] YOUSIF PARRA SWINK 06/11 Released w/o Limitations [employer] [place] [address]([facility], [employer]) [place] [address]([facility],RA FB) OUTPATIENT [id number] BRIGIDA DELAROSA Kasi 06/13 Released w/o Limitations [facility] [place] [address]([facility], [employer]) [place] [address]([facility] Shyla Team, [employer]) OUTPATIENT [id number] ON-DIANA Blanca SELENE BELLO 06/14 Released with Work/Duty Limitations [employer] [place] [address](F am Med [place] [employer], [employer]) [place] [address]([facility],RA FB) OUTPATIENT [id number] BRIGIDA DELAROSA Kasi 06/25 Released w/o Limitations [employer] [place] [address]([facility], [employer]) [place] [address]([facility] Shyla Team, [employer]) OUTPATIENT [id number] SELENE Ivan 06/26 Released w/o Limitations [employer] [place] [address]([facility] [employer]cket t Team, [employer]) [place] [address]([facility],RA FB) OUTPATIENT [id number] STELLA STEPHENSON 06/27 Released w/o Limitations [employer] [place] [address]([facility], [employer]) [place] [address]([facility],RA FB) OUTPATIENT [id number] CLAY WRIGHT 07/02 Released w/o Limitations [employer] [place] [address]([facility] Therapy [facility], [employer]) [place] [address]([facility],RA FB) OUTPATIENT [id number] JESICA BRAVO 07/13 Released w/o Limitations [employer] [place] [address]([facility] Therapy [facility], [employer]) [place] [address]([facility] Med [place] Team, [employer]) OUTPATIENT [id number] SELENE Mclean 08/17 Released w/o Limitations [employer] [place] [address](F am Med [place] [employer], [employer]) [facility], [place] [address]([facility] Med [place] Team, [employer]) TELE CONSULT [id number] Notes Entered by: SHILA DWYER 27 Aug 2011 1136 ------- ------- ------- ------- -- MRI SHILA DWYER 08/27 Referred for Appointment [employer] [facility], [place] [address](F am Med [employer], [employer]) [place] [address]([facility] Shyla Team, [employer]) TELE CONSULT [id number] Notes Entered by: SHILA DWYER 11 Sep 2011 1040 ------- ------- ------- ------- -- MRI SHILA DWYER 09/11 Referred for Appointment [employer] [facility] [place], [place] [address](F am Med [place] [employer], [place]) [place] [address]([facility] s[facility] Therapy Clinic,RA FB) OUTPATIENT [id number] Tahir butler hamstri ng darielai on/RAFB PT JESICA BRAVO 10/04 Released w/o Limitations [employer] [place] [address]([facility] Therapy [facility], [facility]) [facility], [place] [address]([facility] Therapy [facility],RA FB) OUTPATIENT [id number] MOISÉS RUSSO 10/17 Released w/o Limitations [employer] [place] [address]([facility] Therapy [facility], [place]) [place] [address]([facility],RA FB) OUTPATIENT [id number] MIRIAM ELI 10/22 Released w/o Limitations [employer] [place] [address]([facility] Therapy [facility], [employer]) [place] [address]([facility] Therapy [facility],RA FB) OUTPATIENT [id number] BRIGIDA DELAROSA Kasi 10/24 Released w/o Limitations [employer] [place] [address]([facility] Therapy [facility], [employer]) [place] [address]([facility] Therapy [facility],RA FB) OUTPATIENT [id number] ROBYN BARAJAS 11/05 Released w/o Limitations [employer] [place] [address](P h[facility] Therapy [facility], [employer]) [place] [address]([facility] Therapy [facility],RA FB) OUTPATIENT [id number] ROBYN BARAJAS 11/12 Released w/o Limitations [employer] [place] [address]([facility] Therapy [facility], [employer]) [place] [address](Fam Med [place] Team, [employer]) OUTPATIENT [id number] SELENE Ivan 11/13 Released with Work/Duty Limitations [employer] [place] [address](F am Med [place] [employer] Team, [employer]) [place] [address]([facility] s[facility] Therapy [facility],RA FB) OUTPATIENT [id number] ROBYN BARAJAS 11/14 Released w/o Limitations [employer] [place] [address](P hys[facility] Therapy [facility], [employer]) [place] [address]([facility] s[facility] Therapy [facility],RA FB) TELE CONSULT [id number] Notes Entered by: KRISTIE ARROYO 16 Nov 2011 1036 ------- ------- ------- ------- -- ROBYN SHUKLA 11/16 Referred for Appointment [employer] [place] [address](P h[facility] Therapy [facility], [employer]) [place] [address]([facility] s[facility] Therapy [facility],RA FB) OUTPATIENT [id number] JOSSY BRAVOSHON Beverly 11/21 Released w/o Limitations [employer] [place] [address](P h[facility] Therapy Clinic, [employer]) [place] [address](Fam Med [place] Team, [employer]) OUTPATIENT [id number] Urinary Tract Infecti on SELENE SANTANA A 11/26 Released w/o Limitations [employer] [place] [address](F am Med [place] Team, [employer]) [place] [address]([facility] Med [place] Team, [employer]) OUTPATIENT [id number] [facility] SELENE SANTANA A 11/29 Released w/o Limitations [employer] [place] [address](F am Med [place] Team, [employer]) [place] [address]([facility] s[facility] Therapy [facility],RA FB) OUTPATIENT [id number] BRIGIDA DELAROSA 11/29 Released w/o Limitations [employer] [place] [address](P h[facility] Therapy [facility], [employer]) [place] [address]([facility] s[facility] Therapy [facility],RA FB) OUTPATIENT [id number] STELLA STEPHENSON 12/10 Released w/o Limitations [employer] [place] [address](P hysical Therapy Clinic, [employer]) [place] [address]([facility] s[facility] Therapy [facility],RA FB) OUTPATIENT [id number] MARCELINA BISHOP 12/12 Released w/o Limitations [employer] [place] [address](P hysical Therapy Clinic, [employer]) [place] [address]([facility] s[facility] Therapy [facility],RA FB) OUTPATIENT [id number] MARCELINA BISHOP 12/16 Released w/o Limitations [employer] [place] [address](P hysical Therapy Clinic, [employer]) [place] [address]([facility] Therapy [facility],RA ) OUTPATIENT [id number] ROBYN BARAJAS 12/18 [facility]ased [facility] Limitations [facility] [place] [address]([facility] Therapy [facility], [facility]) [facility], [place] [address]([facility] Therapy [facility],RA ) OUTPATIENT [id number] JOSSY BRAVOSHON [place] 12/23 Released w/o Limitations [facility] [place] [address]([facility]ys[facility] Therapy [facility], [facility]) [facility], [place] [address]([facility] Med [place] Team, [employer]) OUTPATIENT [id number] Control Refill SELENE SANTANA 12/30 Released w/o Limitations [facility] [place] [address](F am Med [place] Team, [employer]) [facility], [place] [address]([facility] Med [place] Team, [employer]) OUTPATIENT [id number] sore throat, fever, body aches OSWALDO WARNER 01/01 Released w/o Limitations [facility] [place] [address](F am Med [place] Team, [employer]) [facility], [place] [address]([facility] Med [place] Team, [employer]B) OUTPATIENT [id number] Notes Entered by: NGUYEN GURROLA 08 Feb 2012804 ------- ------- ------- ------- -- ear pain OSWALDO WARNER 02/07 Released w/o Limitations [facility] [place] [place] [address](F am Med [place] Team, [employer]) [facility], [place] [address](Fam Med [place] Team, RAFB) OUTPATIENT [id number] EVAL INGROWN HAIRS and SCARS ON RT LEG / RAFB SELENE SANTANA 03/19 Released w/o Limitations [employer] [place] [address](F am Med [place] [employer] Team, [employer]) [place] [address]([facility] Med [place] Team, [employer]) OUTPATIENT [id number] Notes Entered by: SHILA DWYER 02 May 2012 1525 ------- ------- ------- ------- -- W/i uti SELENE SANTANA 05/02 Released w/o Limitations [employer] [place] [address](F am Med [place] Team, [employer]) [place] [address]([facility], RAFB) OUTPATIENT [id number] HANY MENJIVAR 06/03 Released w/o Limitations [employer] [place] [address]([facility], [facility] [address]([facility] Med [place] Team, RAFB) OUTPATIENT [id number] Mole on Collar bone changed SELENE SANTANA 07/01 Released w/o Limitations [employer] [place] [address](F am Med [place] Team, [employer]) [place] [address]([facility] Med [place] Team, [employer]) TELE CONSULT [id number] Notes Entered by: KATHLEEN ISIDRO 04 Jul 2012 1410 ------- ------- ------- ------- -- SELENE ESTEBAN 07/04 [employer] [place] [address](F am Med [place] Team, [employer]) [place] [address]([facility] Med [place] Team, [employer]) OUTPATIENT [id number] Flu symptom s SELENE SANTANA 07/08 Released w/o Limitations [employer] [place] [address](F am Med [place] Team, [employer]) [place] [address]([facility] Med [place] Team, [employer]) OUTPATIENT [id number] PT PER SIMRAN VALENCIA 07/29 Released w/o Limitations [facility] [place] [address](F am Med [place] Team, [employer]) [place] [address]([facility] [place] Team, [employer]) OUTPATIENT [id number] Notes Entered by: SHILA DWYER 08 Aug 2012 1335 ------- ------- ------- ------- -- W/I SUTURE REMOVAL SHILA DWYER 08/08 Released w/o Limitations [facility] [place] [address](F am Med [place] [employer], [employer]) [place] [address]([facility] Med [place] Team, [employer]) OUTPATIENT [id number] f/u per SIMRAN Singh 08/13 Released w/o Limitations [facility] [place] [address](F am Med [place] Team, [employer]) [place] [address]([facility] Med [place] Team, [employer]) OUTPATIENT [id number] procedu re--mol e removal SIMRAN HEAD 08/19 Released w/o Limitations [facility] [place] [address](F am Med [place] Team, [employer]) [place] [address]([facility] Med [place] Team, [employer]) OUTPATIENT [id number] Notes Entered by: NGUYEN GURROLA 29 Aug 2012 1405 ------- ------- ------- ------- -- SUTURE REMOVAL SIMRAN HEAD 08/29 Released w/o Limitations [facility] [place] [address](F am Med [place] [employer], [employer]) [place] [address]([facility] Med [place] Team, [employer]) TELE CONSULT [id number] Notes Entered by: AVIS CUADRA 14 Sep 2012 0636 ------- ------- ------- ------- -- [facility] SIMRAN HEAD 09/14 [employer] [place] [address](F am Med [place] Team, [employer]) [place] [address]([facility], RAF) OUTPATIENT [id number] [facility] ALLYN ALVAREZ A 10/02 Released w/o Limitations [employer] [place] [address]([facility], [employer]) [place] [address]([facility] Med [place] Team, [employer]) OUTPATIENT [id number] Follicu litison on legs SELENE SANTANA A 11/05 Released w/o Limitations [employer] [place] [address](F am Med [place] Team, [employer]) [place] [address]([facility] Med [place] Team, [employer]) OUTPATIENT [id number] Lump on left side of neck SIMRAN HEAD 12/01 Released w/o Limitations [employer] [place] [address](F am Med [place] Team, [employer]) [place] [address]([facility] Med [place] Team, [employer]) OUTPATIENT [id number] Discuss Mole removal SELENE SANTANA A 12/22 Released w/o Limitations [employer] [place] [address](F am Med [place] Team, [employer]) [place] [address]([employer]) OUTPATIENT [id number] Macules And Papules MANDIE GE 12/30 Released w/o Limitations [employer] [place] [address]([place] [facility]) [place] [address](Fam Med [place] Team, [employer]) TELE CONSULT [id number] Notes Entered by: KASSIDY KUMAR 05 Jan 2013 0826 ------- ------- ------- ------- -- JAVY WISE 01/05 Referred for Appointment [employer] [place] [address](F am Med [place] Team, [employer]) [place] [address](Fam Med [place] [facility], [employer]) TELE CONSULT [id number] Notes Entered by: GAYE PARISH 14 Jan 2013 1118 ------- ------- ------- ------- -- Medical out-pro cessing GAYE PARISH 01/14 Referred for Appointment [employer] [place] [address](F am Med [place] Team, [employer]) [place] [address](Fam [facility] [place] Team, [employer]) OUTPATIENT [id number] ear infecti on SELENE SANTANA 01/21 Sick at Home/Quarter s [employer] [place] [address](F am Med [place] Team, [employer]) [place] [address]([facility] Med [place] Team, [employer]) TELE CONSULT [id number] Notes Entered by: BRENNON HELMS 26 Jan 2013 1408 ------- ------- ------- ------- -- [facility] SARTHAK GROVE 01/26 Referred for Appointment [employer] [place] [address](F am Med [place] Team, [employer]) [facility] [place]([facility]) TELE CONSULT [id number] Notes Entered by: OPAL LUNA 12 May 2013 1521 ------- ------- ------- ------- -- In process ing (Trae ) KATE DICK 05/12 [facility] [place] [employer]([facility] [employer]([facility]) OUTPATIENT [id number] pap CHERIEYARADEMARCUS Lonnie 06/22 Released w/o Limitations [facility] [place]([facility]) [facility] [place] [employer]([facility]) OUTPATIENT [id number] back pain STACIA OMER 07/16 Released w/o Limitations [facility] [place] [employer]([facility]) [facility] [place] [employer]([facility]) TELE CONSULT [id number] Notes Entered by: ONIEL OMER 21 Jul 2013 1213 ------- ------- ------- ------- -- x-ray results KATE DICK 07/21 [facility] [place]([facility]) [facility] [place] [employer]([facility]) TELE CONSULT [id number] Notes Entered by: ONIEL OMER 17 Aug 2013 1613 ------- ------- ------- ------- -- MRI results KATE DICK 08/17 [facility] [place] [employer]([facility]) [facility] J[employer] [employer]([facility]) OUTPATIENT [id number] Sciatic a pain followu p from MRI STACIA OMER 08/19 Released w/o Limitations [facility] [place], [employer]([facility]) [facility] [employer] [facility]([facility]) TELE CONSULT [id number] Notes Entered by: ONIEL OMER 20 Aug 2013 0921 ------- ------- ------- ------- -- micare message STACIA OMER 08/20 [place]) [facility] [place]) OUTPATIENT [id number] Lumbar radicul opathy TYRELL CAMERON 10/12 Released w/o Limitations [place] [facility] [place] [place]) OUTPATIENT [id number] Right L5-S1 [place] JASMIN TYRELL CAMERON 11/03 Released w/o Limitations [facility] [employer] [place]) [place]) OUTPATIENT [id number] two painful bumps on the back of my head SUNITA WRIGHT 12/07 Released w/o Limitations [facility] [employer] [place]([facility]) [place] [facility]([facility]) OUTPATIENT [id number] consult to change JAYME PEGUERO 12/22 Released w/o Limitations [place] [facility] [employer] [place] [place]([facility]) OUTPATIENT [id number] follicu litis on both legs legs SUSIE LAWTON 02/19 Released w/o Limitations [place] [facility] [employer] [place]([facility]) [place] [place]([facility]) TELE CONSULT [id number] Notes Entered by: PERCY BESS 10 Mar 2014 0927 ------- ------- ------- ------- -- PCM Gautam Au: KATE Nunes 03/10 [place] [place]) [facility] [employer] [place]([employer] [facility]) TELE CONSULT [id number] Notes Entered by: Sade AGUILAR 12 Mar 2014 1237 ------- ------- ------- ------- -- Discuss med update. Stopped taking Valtrex daily in 2012 JAYME PEGUERO 03/12 [place]) [place]([facility]) TELE CONSULT [id number] Notes Entered by: KRYSTAL MYERS 16 Mar 2014 1438 ------- ------- ------- ------- -- LAB results JAYME PEGUERO DANNY 03/16 [place]([facility]) [place]) OUTPATIENT [id number] [facility] FRANCINE FOWLER 05/04 Released w/o Limitations [place] [place]) OUTPATIENT [id number] f/u bulging disk TYRELL CAMERON 06/03 Released w/o Limitations [place]) OUTPATIENT [id number] Right L5-S1 [place] JASMIN TYRELL CAMERON 06/14 Released w/o Limitations [place]) OUTPATIENT [id number] Crampin g in both hands, tinglin g in fingert ips SUNITA WRIGHT 06/23 Released w/o Limitations [place]) [place]) OUTPATIENT [id number] cough/c ongesti on/sore throat SUNITA WRIGHT 08/17 Released w/o Limitations [place] [place] OUTPATIENT [id number] Moles on face would like a dermato logist referre l for removal SUNITA WRIGHT 09/17 Released w/o Limitations [facility] [place] [place] OUTPATIENT [id number] History of skin cancer- basal cell carcino SIMRAN Eduardo 10/20 Released w/o Limitations [place] [facility] [place]([facility] Dermato logy) [place] [facility]) OUTPATIENT [id number] f/u TYRELL CAMERON 01/10 Released w/o Limitations [place] [facility]) OUTPATIENT [id number] Right L5-S1 [place] JASMIN TYRELL CAMERON 01/18 Released w/o Limitations [place]) [place]([facility]) OUTPATIENT [id number] pap AMRIT DEMARCUS Lonnie 01/31 Released w/o Limitations [place]([facility]) [place]) OUTPATIENT [id number] Follicu litis on Legs SUNITA WRIGHT 03/01 Released w/o Limitations [place]) JONO Nelson([facility]) OUTPATIENT [id number] Notes Entered by: Tom ROSARIO 25 Mar 2015 0813 ------- ------- ------- ------- -- walk in ut[place]-CHACHA Castellanos 03/25 Released w/o Limitations [facility]) JONO Nelson(Dermat ology Clinic) OUTPATIENT [id number] SKIN NEOPLAS M FACE, FOLLICU LITIS LOWER LEGS FRANK GUERIN 03/31 Released w/o Limitations [facility]) JONO Nelson(Dermat ology Clinic) OUTPATIENT [id number] FRANK GUERIN 04/13 Released w/o Limitations [facility]) [facility] OUTPATIENT [id number] Notes Entered by: WARNER LOPEZ 18 Apr 2015 1326 ------- ------- ------- ------- -- SUTURE REMOVAL FRANK GUERIN 04/18 Released w/o Limitations [place]) TELE CONSULT [id number] Notes Entered by: KRYSTAL MYERS 17 May 2015 0909 ------- ------- ------- ------- -- [facility]--huber b. 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 KRYSTAL MYERS 05/17 [place]) [place]) OUTPATIENT [id number] Dr Cheney pt/ Low back pain KAREEM ESTRADA 06/27 Released w/o Limitations [place]) OUTPATIENT [id number] Right L5/S1 [place] JASMIN KAREEM ESTRADA 06/29 Released w/o Limitations [place] [place] TELE CONSULT [id number] Notes Entered by: KONG CARLOS 03 Aug 2015 1226 ------- ------- ------- ------- -- pha KONG SLADE 08/03 [place] [place] [place] TELE CONSULT [id number] Notes Entered by: CAROLEE WOOD 18 Oct 2015 0748 ------- ------- ------- ------- -- PAS [facility] Nurse CHACHA MORTON 10/18 [place] [place]) OUTPATIENT [id number] f/u KAREEM ESTRADA 10/25 Released w/o Limitations [place]([facility]) TELE CONSULT [id number] Notes Entered by: YIMI LAL N 26 Oct 2015 0919 ------- ------- ------- ------- -- NETWORK RESULT: URGENT CARE D/C 10/18/15 [id number] LOOK IN ARTIFAC TS and IMAGES SUSIE LAWTON N 10/26 [place]) [place]([facility]) OUTPATIENT [id number] Control Prescri ption TERESA Frazier 04/16 Released w/o Limitations [place]([facility]) [place]([facility] Tm 4) OUTPATIENT [id number] Notes Entered by: Tom ROSARIO 13 Jun 2016 0817 ------- ------- ------- ------- -- walk in uti-melissa p CHACHA MORTON 06/13 Released w/o Limitations [place]([facility] Tm 4) JONO Nelson([facility] Tm 2) OUTPATIENT [id number] UTI CHACHA MORTON 06/13 Released w/o Limitations [place]([facility] Tm 2) JONO Nelson([facility]) TELE CONSULT [id number] Notes Entered by: CHACHA MORTON 13 Jun 2016 1121 ------- ------- ------- ------- -- Call pt CHACHA MORTON 06/13 JONO Nelson([facility]) JONO Nelson([facility] OUTPATIENT [id number] Notes Entered by: ABAD WHITE 06 Sep 2016 1445 ------- ------- ------- ------- -- TRI-SER MAYE PEDROZA 09/06 Released w/o Limitations Choe MELVA [place] [place]) OUTPATIENT [id number] check AZALIA JonesORAFrancisco Ba 09/20 Released w/o Limitations [place] [facility]) [place]) OUTPATIENT [id number] Wrist pain LUH WORLEY Lonnie 10/03 Released w/o Limitations Choe [place]ELVA [place]) [place] OUTPATIENT [id number] Notes Entered by: VIOLA MIXON 22 Oct 2016 0829 ------- ------- ------- ------- -- right wrist cock up BALBIR FAJARDO 10/22 Released w/o Limitations Choe [place]) [place] OUTPATIENT [id number] Pain in right wrist QASIM CORREA 10/29 Released w/o Limitations Choe [place]YE [place] Tm 3) TELE CONSULT [id number] Notes Entered by: CINDY ODONNELL 06 Nov 2016 1406 ------- ------- ------- ------- -- OUTPRO CINDY LOPEZ 11/06 [place]([facility] Tm 3) [place] ) OUTPATIENT [id number] Vision Screeni KATTY Pino 11/13 Released w/o Limitations Choe [place] OUTPATIENT [id number] f/u rt wrist QASIM CORREA 11/27 Released w/o Limitations Choe [place] Choe [place] Tm 3) OUTPATIENT [id number] Sinus pain RADHA DANIELA Kasi 12/04 Released w/o Limitations Choe [place] Tm 3) Дм[place]ий FRYE [place] OUTPATIENT [id number] Rt wrist f/u QASIM CORREA 12/20 Released w/o Limitations Choe [place]) [place] OUTPATIENT [id number] Pain in right wrist SUNITA DUTTA Jamin 01/07 Released w/o Limitations Дмит[place]и FRYE [place] [facility]) [place] FRYE [place] Tm 3) TELE CONSULT [id number] Notes Entered by: Lonnie DUKE 06 Feb 2017 0806 ------- ------- ------- ------- -- NETWORK RESULTS -ORTHOP EDICS-0 [id number] ARTIFAC TS and IMAGES LUCIA CRUZ 02/06 [place] Tm 3) [facility]War rior Op Med Cln Tm A Ad) OUTPATIENT [id number] New pt to Naz; Set up care JG LIEBERMAN 04/22 Released w/o Limitations [employer] [facility] [place] [facility]W arrior Op Med Cln Tm A Ad) [facility])(Med ical In/Out Processin g) TELE CONSULT [id number] Notes Entered by: Rudolph SALAZAR 01 May 2017 1251 ------- ------- ------- ------- -- Medical In-proc MICK Barrow 05/01 [facility] Group [facility] [place] [facility]M edical In/Out Process ing) [facility] Medical Group [facility])(War rior Op Med Cln Tm A Ad) TELE CONSULT [id number] Notes Entered by: Mic GARCIA 15 May 2017 1000 ------- ------- ------- ------- -- Network Results - Orthope dic Surgery 05/08/17 JG DAVILA 05/[address] [place] [address])(W arrior Op Med Cln Tm A Ad) [address] [place] [address])(War rior Op Med Cln Tm A Ad) TELE CONSULT [id number] Notes Entered by: Mic GARCIA 31 May 2017 1304 ------- ------- ------- ------- -- Network Results Orthope dic Surgery 05/20/17 JESSY MCFARLANE 05/[address] [place] [address])(W arrior Op Med Cln Tm A Ad) [address] [place] [address])(War rior Op Med Cln Tm A Ad) TELE CONSULT [id number] Notes Entered by: IAIN PALM 18 Jun 2017 1120 ------- ------- ------- ------- -- HIV- Med ANN BENSON 06/18 Referred for Appointment [address] [place] [address])(W arrior Op Med Cln Tm A Ad) [address] [place] [address])(Bas e Operation al Medicine Clin) OUTPATIENT [id number] Notes Entered by: LUIZ GARCIA 13 Dec 2017 1109 ------- ------- ------- ------- -- TRI-SER ANN DOMÍNGUEZ 12/13 Released w/o Limitations [address] [place] [address])(B ase Operati onal Medicin e Clin) [address] [place] [address])(Fam josi Med Tm B Non-AD BCC) OUTPATIENT [id number] abdomin al pain ANN JACKSON S 04/04 Released w/o Limitations [address] [place] [address] Naz [facility])( amily Med Tm B Non-AD BCC) [address] [place] [address] Naz [facility])([facility] josi Med Tm B Non-AD BCC) TELE CONSULT [id number] Notes Entered by: HIMA PULIDO 07 Apr 2018 1428 ------- ------- ------- ------- -- ER f/u/Col anese/2 . 7762 ETHAN HILL 04/[address] [place] [address])( amily Med Tm B Non-AD BCC) [address] [place] [address] Naz [facility])([facility] josi Med Tm B Non-AD BCC) TELE CONSULT [id number] Notes Entered by: TYLER FIERRO 08 Apr 2018 1545 ------- ------- ------- ------- -- Referra l Correct ions/Co lanese/ [phone] ETHAN HILL 04/[address] [place] [address] Naz [facility])( amily Med Tm B Non-AD BCC) [address] [place] [address] Naz [facility])([facility] B Non-AD BCC) TELE CONSULT [id number] Notes Entered by: MAGGIE MCGREGOR 15 Apr 2018 0850 ------- ------- ------- ------- -- CT Scan Results / Colanes e / [phone] - sgj ETHAN HILL 04/[address] [place] [address] Naz [facility])(F amily Med Tm B Non-AD BCC) [address] [place] [address] Naz [facility])(Pediatric Hospitalist ecology) OUTPATIENT [id number] LEFT OVARIAN CYST - [phone] LAUREN VALERA 04/21 Released w/o Limitations [address] [place] [address] Naz [facility]) [address] [place] [address] [facility])(Fam josi Med Tm B Non-AD BCC) OUTPATIENT [id number] Notes Entered by: IAIN PALM 22 Apr 2018 1545 ------- ------- ------- ------- -- F/u ANN JACKSON 04/22 Released w/o Limitations [facility])(F amily Med Tm B Non-AD BCC) [address] [place] [address])(Pediatric Hospitalist ecology) OUTPATIENT [id number] Possibl e Endomet riosis KANG VALENCIA 04/28 Released w/o Limitations [address] [place] [address])(G ynecolo gy) [address] [place] [address])(Pediatric Hospitalist ecology) TELE CONSULT [id number] Notes Entered by: TRE ORELLANA 15 May 2018 1350 ------- ------- ------- ------- -- Remindpapo r for surgery [id number] @0930 LIZ ORELLANA 05/[address] [place] [address])(G ynecotanya gy) [address] [place] [address])(Pediatric Hospitalist ecology) TELE CONSULT [id number] Notes Entered by: HIMA PULIDO 16 May 2018 1141 ------- ------- ------- ------- -- Appt Request / ROB HOUSTON 05/16 Referred for Appointment [address] [place] [address])(G ynecolo gy) [address] [place] [address])(Pediatric Hospitalist ecology) OUTPATIENT [id number] post op KANG VALENCIA 05/26 Released w/o Limitations [address] [place] [address])(G ynecolo gy) [address] [place] [address])(Pediatric Hospitalist ecology) OUTPATIENT [id number] pre op - [phone] KANG VALENCIA 06/26 Released w/o Limitations [address] [place] [address])(G ynecolo gy) [address] [place] [address])(Pediatric Hospitalist ecology) TELE CONSULT [id number] Notes Entered by: FUNMIEVELINA TRE Lonnie Santos 16 Jul 2018 0842 ------- ------- ------- ------- -- Cassy r for surgery [id number] @0730 REYNA LIZ M 07/16 Referred for Appointment [address] [place] [address])(G ynecolo gy) [address] [place] [address])(Pediatric Hospitalist ecology) TELE CONSULT [id number] Notes Entered by: CARYN LUNA 24 Jul 2018 1458 ------- ------- ------- ------- -- Scanned patholo gy results into [facility] KANG VALENCIA 07/[address] [place] [address])(G ynecolo gy) [address] [place] [address])(Pediatric Hospitalist ecology) TELE CONSULT [id number] ROB HOUSTON 07/28 Released w/o Limitations [address] [place] [address])(G ynecolo gy) [address] [place] [address])(Pediatric Hospitalist ecology) OUTPATIENT [id number] post op #1 KANG VALENCIA 07/31 Released w/o Limitations [address] [place] [address])(G ynecolo gy) [address] [place] [address])(Pediatric Hospitalist ecology) OUTPATIENT [id number] post op #2 KANG VALENCIA 08/28 Released w/o Limitations [address] [place] [address])(G ynecolo gy) [address] [place] [address])(War rior Op Med Cln Tm A Ad) TELE CONSULT [id number] Notes Entered by: TAMERA MUÑIZ 05 Sep 2018 0917 ------- ------- ------- ------- -- Sx: Bilater al Ear Pain/Fr amita (Colane se)/210 .[phone] 45/clm [facility] 09[facility]05 Referred for Appointment [address] [place] [address] Group Naz [facility])(W arrior Op Med Cln Tm A Ad) [address] [place] [address])(Fam josi Med Tm B Non-AD BCC) OUTPATIENT [id number] Notes Entered by: MALLORIE CHENG 05 Sep 2018 0940 ------- ------- ------- ------- -- WALK IN EARACHE ETHAN HILL 09/05 Released w/o Limitations [address] [place] [address])(F amily Med Tm B Non-AD BCC) [address] [place] [address])(Fam josi Med Tm B Non-AD BCC) OUTPATIENT [id number] tinglin g in left hand and pain in arm ANN JACKSON S 10/06 Released w/o Limitations [address] [place] [address])(F amily Med Tm B Non-AD BCC) [address] [place] [address])(Opt ometry) OUTPATIENT [id number] annual eye exam/ [phone] ANJALI CUEVA 11/04 Released w/o Limitations [address] [place] [address])(O ptometr y) [address] [place] [address])(Fam josi Med Tm B Non-AD BCC) OUTPATIENT [id number] Notes Entered by: MALLORIE CHENG 23 Dec 2018 0732 ------- ------- ------- ------- -- WALK IN STREP TEST VERNELL RICHARDS 12/23 Released w/o Limitations [address] [place] [address] ([facility])(F amily Med Tm B Non-AD BCC) [address] [place] [address])(Sco tt Flight Medicine ) TELE CONSULT [id number] Notes Entered by: EMMA PENA 07 Jan 2019 0801 ------- ------- ------- ------- -- [facility] DEBBY GILMAN ANN L 01/[address] [place] [address] Naz [facility])(S cott Flight Medicin e Tm) [address] [place] [address] Naz [facility])(Pediatric Hospitalist ecology) TELE CONSULT [id number] Notes Entered by: MICHAEL MOSQUERACARYN 04 Feb 2019 0751 ------- ------- ------- ------- -- Patient with two differe nt needs JULIA VALDEZ 02/04 Referred for Appointment [address] [place] [address] Naz [facility])(G ynecolo gy) [address] [place] [address] Naz [facility])(Pediatric Hospitalist ecology) OUTPATIENT [id number] urinary inconti nence [phone] LAUREN VALERA 02/11 Released w/o Limitations [address] [place] [address])(G ynecolo gy) [address] [place] [address])(Bas e Operation al Medicine Clin) OUTPATIENT [id number] [facility] ANN SUTTON 02/12 Released w/o Limitations [address] [place] [address] Naz [facility])(B ase Operati onal Medicin e Clin) [address] [place] [address])(Pediatric Hospitalist ecology) TELE CONSULT [id number] Notes Entered by: JORGE L DANIELLE 25 Mar 2019 1113 ------- ------- ------- ------- -- Right Fax LAUREN VALERA 03/[address] [place] [address] Naz [facility])(G ynecolo gy) [address] [place] [address])(Pediatric Hospitalist ecology) OUTPATIENT [id number] WWE with refill LAUREN VALERA 03/25 Released w/o Limitations [address] [place], [place] [address]B [facility]G ynecolo gy) [address] [place] [address])(Pediatric Hospitalist ecology) TELE CONSULT [id number] Notes Entered by: GEAR VALERA 30 Mar 2019 1452 ------- ------- ------- ------- -- results CELSOAVELINOROB T 03/30 Referred for Appointment [address] [place] [address])(G isabel gy) [address] [place] [address])(Bas e Operation al Medicine Clin) TELE CONSULT [id number] Notes Entered by: XENIA GRAF 08 May 2019 0827 ------- ------- ------- ------- -- CHACHA Flores 05/08 Other Not Elsewhere Classified [address] [place] [address])(B ase Operati onal Medicin e Clin) [address] [place] [address])(War rior Op Med Cln Tm A Ad) OUTPATIENT [id number] sciatic a pain JAY ENGLISH 07/27 Released w/o Limitations [address] [place] [address])(W arrior Op Med Cln Tm A Ad) [address] [place] [address])(War rior Op Med Cln Tm A Ad) TELE CONSULT [id number] Notes Entered by: RADHA ENGLISH 20 Aug 2019 1719 ------- ------- ------- ------- -- Imaging results JAY ENGLISH 08/[address] [place] [address])(W arrior Op Med Cln Tm A Ad) [address] [place] [address])(War rior Op Med Cln Tm A Ad) TELE CONSULT [id number] Notes Entered by: ANTONIO GARCÍA 30 Oct 2019 1038 ------- ------- ------- ------- -- Phone call request / Salbador / ETHAN HILL 10/30 Released to [facility] [address] [place] [address])(W arrior Op Med Cln Tm A Ad) [address] [place] [address])(War rior Op Med Cln Tm A Ad) OUTPATIENT [id number] Notes Entered by: MALLORIE CHENG 05 Nov 2019 0705 ------- ------- ------- ------- -- walk britta MAYNARD ELBA Avril 11/05 Released w/o Limitations [address] [place] [address])(W arrior Op Med Cln Tm A Ad) [address] [place] [address])(Opt ometry) OUTPATIENT [id number] Annual Eye Exam HAMMADMICHELESelma Rios 11/30 Released w/o Limitations [address] [place] [address])(O ptometr y) [address] [place] [address])(War rior Op Med Cln Tm A Ad) OUTPATIENT [id number] left arm pain MIMI SIU 12/14 Released w/o Limitations [address] [place] [address])(W arrior Op Med Cln Tm A Ad) [address] [place] [address])(War rior Op Med Cln Tm A Ad) TELE CONSULT [id number] Notes Entered by: Selma MCLAUGHLIN 07 Jan 2020 1141 ------- ------- ------- ------- -- Network Results Neurolo gy 0 MIMI PADRON 01/[address] [place] [address])(W arrior Op Med Cln Tm A Ad) [address] [place] [address])(Fam josi Med Tm B Non-AD BCC) TELE CONSULT [id number] Notes Entered by: RASTA FINK 29 Jan 2020 0728 ------- ------- ------- ------- -- Phone Call Request MIMI SIU 01/[address] [place] [address] Naz [facility])(F amily Med Tm B Non-AD BCC) [address] [place] [address])(Phy sical Therapy) OUTPATIENT [id number] Radicul opathy, cervica l perico CODY PEOPLES 02/02 Released w/o Limitations [address] [place] [address])(P hysical Therapy ) [address] [place] [address])(Shahzad matology) OUTPATIENT [id number] Skin check h/o bcc THAO RENEE 03/07 Released w/o Limitations [address] [place] [address])(D ermatol ogy) [address] [place] [address])(Shahzad matology) TELE CONSULT [id number] Notes Entered by: CM RENEE 14 Mar 2020 1450 ------- ------- ------- ------- -- Biopsy results THAO RENEE 03/[address] [place] [address])(D ermatol ogy) [address] [place] [address])(War rior Op Med Cln Tm A Ad) OUTPATIENT [id number] Left arm pain ongoing issue, PCM:ST JOSÉ AVINA STEPHEN M 03/24 Released w/o Limitations [address] [place] [address])(W arrior Op Med Cln Tm A Ad) [address] [place] [address])(War rior Op Med Cln Tm A Ad) TELE CONSULT [id number] Notes Entered by: LOIDA SIU 25 Mar 2020 1415 ------- ------- ------- ------- -- EMG RESULTS JANENE TURNER 03/25 Released to [facility] [address] [place] [address])(W arrior Op Med Cln Tm A Ad) [address] [place] [address])(War rior Op Med Cln Tm A Ad) TELE CONSULT [id number] Notes Entered by: Jo Ann CARSON 28 Mar 2020 1341 ------- ------- ------- ------- -- Network results Neurolo gy 020 KJD MIMI SIU 03/[address] [place] [address])(W arrior Op Med Cln Tm A Ad) [address] [place] [address])([facility]) OUTPATIENT [id number] ANN AIKEN 04/05 Released w/o Limitations [address] [place] [address])(D eployme nt Health Assess ents) [address] [place] [address])(War rior Op Med Cln Tm A Ad) TELE CONSULT [id number] Notes Entered by: DANIA GONZALEZ A 11 Apr 2020 1034 ------- ------- ------- ------- -- NeuroSu rg Referra l Req -SX- L Arm Sharp pain-Harmon nd numbnes avril/ Salbador / ETHAN HILL 04/11 Referred for Appointment [address] [place] [address])(W arrior Op Med Cln Tm A Ad) [address] [place] [address])(War rior Op Med Cln Tm A Ad) TELE CONSULT [id number] Notes Entered by: DINO MCMAHON 18 Apr 2020 1137 ------- ------- ------- ------- -- MRI Image Request /Devendra haile/210.5 [id number] ETHAN HILL 04/18 Other Not Elsewhere Classified [address] [place] [address])(W arrior Op Med Cln Tm A Ad) [address] [place] [address])(War rior Op Med Cln Tm A Ad) TELE CONSULT [id number] Notes Entered by: TREVOR CALIX 22 Apr 2020 0926 ------- ------- ------- ------- -- Network results PAIN MANAGEM ENT 04/21/20 MIMI OSULLIVAN 04/[address] [place] [address])(W arrior Op Med Cln Tm A Ad) [address] [place] [address])(Bas e Operation al Medicine Clin) OUTPATIENT [id number] [facility] MIMI SIU 05/02 Released w/o Limitations [address] [place] [address])(B ase Operati onal Medicin e Clin) [address] [place] [address])(War rior Op Med Cln Tm A Ad) TELE CONSULT [id number] Notes Entered by: Jo Ann CARSON 05 May 2020 0855 ------- ------- ------- ------- -- Network results Neurosu rgery 020 JAY PELAYO 05/[address] [place] [address])(W arrior Op Med Cln Tm A Ad) [address] [place] [address])(Pediatric Hospitalist ecology) OUTPATIENT [id number] Annual WWE LAUREN VALERA 05/05 Released w/o Limitations [address] [place] [address])(G ynecolo gy) [address] [place] [address])(Fam josi Med Tm B Non-AD BCC) TELE CONSULT [id number] Notes Entered by: SARMAD PHILLIPS 24 May 2020 0951 ------- ------- ------- ------- -- Off base restric tion form- lbert KALINA ESCAMILLA 05/24 Released to [facility] [address] [place] [address])(F amily Med Tm B Non-AD BCC) [address] [place] [address])(War rior Op Med Cln Tm A Ad) TELE CONSULT [id number] Notes Entered by: MELLY KAY 24 May 2020 1043 ------- ------- ------- ------- -- Network Result DISCHAR GE 0 MIMI SIU 05/[address] [place] [address])(W arrior Op Med Cln Tm A Ad) [address] [place] [address])([facility]) TELE CONSULT [id number] Notes Entered by: JONN SEGUNDOAZAR 20 Jun 2020 0820 ------- ------- ------- ------- -- [facility] appt LISA GUTIÉRREZ 06/20 Referred for Appointment [address] [place] [address] Naz [facility])([facility] [address] [place] [address] Naz [facility])(Sco tt [facility]) OUTPATIENT [id number] Anxiety (teleph onic appt) KEON CUEVA 06/30 Released w/o Limitations [address] [place] [address] Naz [facility])(S josiane [facility]) [address] [place] [address] Naz [facility])(Marvin rior Op Med Cln Tm A Ad) TELE CONSULT [id number] Notes Entered by: TREVOR CALIX 05 Jul 2020 0948 ------- ------- ------- ------- -- Network results SURGERY 07/04/20 JAY MAHONEY 07/[address] [place] [address] Naz [facility])(W arrior Op Med Cln Tm A Ad) [address] [place] [address])(Marvin arringtonr Op Med Cln Tm A Ad) TELE CONSULT [id number] Notes Entered by: DINO MCMAHON 06 Jul 2020 1334 ------- ------- ------- ------- -- Con Leave Follow Up/Ananya ert/210 .[phone] 45 MILLA MEEHAN 07/06 Released to Self Care [address] [place] [address])(W arrior Op Med Cln Tm A Ad) [address] [place] [address])(Fam josi Med Tm B Non-AD BCC) TELE CONSULT [id number] Notes Entered by: COREY CAMARILLO 07 Jul 2020 1202 ------- ------- ------- ------- -- Network Result Dischar ge Jul 19 MIMI SIU 07/[address] [place] [address])(F amily Med Tm B Non-AD BCC) [address] [place] [address])(War rior Op Med Cln Tm A Ad) TELE CONSULT [id number] Notes Entered by: RAJINDER ALSTON PUGH 07 Jul 2020 1430 ------- ------- ------- ------- -- Network Results DISCHAR GE 0 MIMI SIU 07/[address] [place] [address])(W arrior Op Med Cln Tm A Ad) [address] [place] [address])(War rior Op Med Cln Tm A Ad) TELE CONSULT [id number] Notes Entered by: TREVOR CALIX 15 Jul 2020 1340 ------- ------- ------- ------- -- Network results PAIN MANAGEM ENT 0 [facility] MIMI SIU 07/[address] [place] [address])(W arrior Op Med Cln Tm A Ad) [address] [place] [address])(War rior Op Med Cln Tm A Ad) TELE CONSULT [id number] 5 Notes Entered by: TREVOR CALIX 20 Jul 2020 1111 ------- ------- ------- ------- -- Network results PAIN MANAGEM ENT 0 [facility] MIMI SIU 07/[address] [place] [address])(W arrior Op Med Cln Tm A Ad) [address] [place] [address])(War rior Op Med Cln Tm A Ad) TELE CONSULT [id number] Notes Entered by: Jo Ann CARSON 22 Aug 2020 0836 ------- ------- ------- ------- -- Network results Neurosu rgery 020 PAULINED MIMI SIU 08/[address] [place] [address])(W arrior Op Med Cln Tm A Ad) [facility] Medical [facility])(War rior Op Med Cln Tm A Ad) TELE CONSULT [id number] Notes Entered by: HIMA PULIDO 05 Sep 2020 1022 ------- ------- ------- ------- -- STAT Referra l Request (appt Aug)/Ann-Marie pinzonert/ 18.234. ETHAN Arevalo 09/05 Referred for Appointment [address] [place] [address])(W arrior Op Med Cln Tm A Ad) [address] [place] [address])(War rior Op Med Cln Tm A Ad) TELE CONSULT [id number] Notes Entered by: XENIA HENDERSON 08 Sep 2020 1356 ------- ------- ------- ------- -- Network Results PAIN JUAN NT 0 MIMI SIU 09/[address] [place] [address] Group [facility])(W arrior Op Med Cln Tm A Ad) [address] [place] [address])(War rior Op Med Cln Tm A Ad) TELE CONSULT [id number] 0 Notes Entered by: Jo Ann CARSON 08 Sep 2020 1421 ------- ------- ------- ------- -- Network results Agatas/Bandar in Managem ent 020 MIMI BARRIOS 09/[address] [place] [address])(W arrior Op Med Cln Tm A Ad) [address] [place] [address])(Shahzad matology) OUTPATIENT [id number] F/u THAO RENEE 09/09 Released w/o Limitations [address] [place] [address])([facility]) [address] [place] [address])(War rior Op Med Cln Tm A Ad) TELE CONSULT [id number] 5 Notes Entered by: LOIDA SIU 15 Sep 2020 1454 ------- ------- ------- ------- -- physica l therapy ? JOHNNY JANENE A 09/15 Released to Self Care [address] [place] [address])(W arrior Op Med Cln Tm A Ad) [address] [place] [address])(War rior Op Med Cln Tm A Ad) OUTPATIENT [id number] wrist and elbow pain MIMI SIU 10/12 Released w/o Limitations [address] [place] [address])(W arrior Op Med Cln Tm A Ad) [address] [place] [address])(War rior Op Med Cln Tm A Ad) TELE CONSULT [id number] 1 Notes Entered by: RAJINDER ALSTON ON PUGH 18 Oct 2020 0918 ------- ------- ------- ------- -- Network Results [facility] 1 MIMI SIU 10/[address] [place] [address])(W arrior Op Med Cln Tm A Ad) [address] [place] [address])(War rior Op Med Cln Tm A Ad) TELE CONSULT [id number] 6 Notes Entered by: OLIDA SIU 20 Oct 2020 1000 ------- ------- ------- ------- -- MRI R wrist MILLA Ocampo 10/20 Released to Self Care [address] [place] [address])(W arrior Op Med Cln Tm A Ad) [address] [place] [address])(Spo rts Med Clinic/Pa in Mgmt) OUTPATIENT [id number] SPORT/R IGHT WRIST PAIN LATISHA AMEZQUITA 11/01 Released w/o Limitations [address] [place] [address])(S ports Med Clinic/ Pain Mgmt) [address] [place] [address])(War rior Op Med Cln Tm A Ad) TELE CONSULT [id number] Notes Entered by: RAJINDER ALSTON ON PUGH 03 Nov 2020 0923 ------- ------- ------- ------- -- Network Results PHYSICA L THERAPY 1 MIMI SIU 11/[address] [place] [address])(W arrior Op Med Cln Tm A Ad) [address] [place] [address])(War rior Op Med Cln Tm A Ad) TELE CONSULT [id number] 0 Notes Entered by: DANIA GONZALEZ 08 Nov 2020 1047 ------- ------- ------- ------- -- STAT 0 Surg Akanksha De La O/ Salbador /MAIA Gerard -ajh ETHAN HILL 11/08 Referred for Appointment [address] [place] [address])(W arrior Op Med Cln Tm A Ad) [address] [place] [address])(War rior Op Med Cln Tm A Ad) TELE CONSULT [id number] Notes Entered by: TREVOR CALIX 10 Nov 2020 1200 ------- ------- ------- ------- -- Network results SURGERY 11/09/20 [facility] MIMI SIU 11/[address] [place] [address])(W arrior Op Med Cln Tm A Ad) [address] [place] [address])(War rior Op Med Cln Tm A Ad) TELE CONSULT [id number] 5 Notes Entered by: RASTA FINK 11 Nov 2020 0934 ------- ------- ------- ------- -- ETHAN Yang 11/11 Referred for Appointment [address] [place] [address])(W arrior Op Med Cln Tm A Ad) [address] [place] [address])([facility]/Pa in [facility]) OUTPATIENT [id number] SPORTS/ RIGHT WRIST/# 1 PROLO LATISHA AMEZQUITA A 11/11 Released w/o Limitations [facility] Naz T[facility]AR[facility] ([facility]S ports Med Clinic/ Pain Mgmt) [address] [place] [address] Naz [facility]Shahzad matology) OUTPATIENT [id number] Skin check THAO RENEE L 11/18 Released w/o Limitations [facility] Naz TAMARA ([facility])(D ermatol ogy) [address] [place] [address] Naz [facility])(OF C [facility]) OUTPATIENT [id number] F/U Referre d from [facility] [phone] KATTY URIOSTEGUI A 11/18 Released w/o Limitations [facility] Naz TAMARAMejia ([facility])(O [facility]) [address] [place] [address] Naz [facility])(Shahzad matology) OUTPATIENT [id number] Suture Removal THAO RENEE L 11/28 Released w/o Limitations [facility] Naz TAMARA ([facility])(D ermatol ogy) [address] [place] [address] Naz [facility])(War rior Op Med Cln Tm A Ad) TELE CONSULT [id number] 5 Notes Entered by: VIRGIL NICHOLS 28 Nov 2020 1143 ------- ------- ------- ------- -- Network results Physica l Therapy 11/27/19 21 [facility] MIMI SIU 11/28[facility] Naz [facility])(W arrior Op Med Cln Tm A Ad) [address] [place] [address] Naz [facility])(Spo rts Med Clinic/Pa in Mgmt) OUTPATIENT [id number] SPORTS/ RIGHT WRIST/# 2 PROLO LATISHA AMEZQUITA A 11/29 Released w/o Limitations [facility] Naz [place] [facility])(S ports Med Clinic/ Pain Mgmt) [address] [place] [address] Naz [facility])(War rior Op Med Cln Tm A Ad) OUTPATIENT [id number] [phone] [email or web address] MIMI SIU 12/02 Released w/o Limitations [address] [place] [address] Naz [facility]W arrior Op Med Cln Tm A Ad) 375 [facility] Naz [facility])(OF C [facility]) OUTPATIENT [id number] [place] [phone] F/U [facility] MOODY KATTY A 12/02 Released w/o Limitations 375[facility] Naz MCDONALD ([facility])(O [facility]) [address] [place] [address] Naz [facility])(War rior Op Med Cln Tm A Ad) TELE CONSULT [id number] 6 Notes Entered by: LOIDA SIU 12 Dec 2020 1333 ------- ------- ------- ------- -- lab results MIMI SIU 12/[address] [place] [address] Naz [facility])(W arrior Op Med Cln Tm A Ad) [address] [place] [address])(Opt ometry) OUTPATIENT [id number] Annual Exam BERENICE HILTON 12/16 Released w/o Limitations [address] [place] [address] Naz [facility])(O ptometr y) [address] [place] [address])(Spo rts Med Clinic/Pa in Mgmt) OUTPATIENT [id number] SPORT/R IGHT WRIST #2 PROLO BEREKET JACK E 12/20 Released w/o Limitations [address] [place] [address])(S ports Med Clinic/ Pain Mgmt) [address] [place] [address])(War rior Op Med Cln Tm A Ad) TELE CONSULT [id number] Notes Entered by: iMc GARCIA 27 Dec 2020 1439 ------- ------- ------- ------- -- Network results PT 11/22/19 21 TSB MIMI SIU 12/[address] [place] [address] [facility])(W arrior Op Med Cln Tm A Ad) [address] [place] [address])(Fam josi Med Tm B Non-AD BCC) OUTPATIENT [id number] Notes Entered by: TIMMY CUNNINGHAM 03 Jan 2021 0805 ------- ------- ------- ------- -- WALK-IN MIMI TOLEDO 01/03 Released w/o Limitations [address] [place] [address])(F amily Med Tm B Non-AD BCC) [address] [place] [address])(War rior Op Med Cln Tm A Ad) TELE CONSULT [id number] 1 Notes Entered by: LOIDA SIU 03 Jan 2021 1021 ------- ------- ------- ------- -- lab result ETHAN HILL 01/03 Other Not Elsewhere Classified [address] [place] [address])(W arrior Op Med Cln Tm A Ad) [address] [place] [address])(War rior Op Med Cln Tm A Ad) TELE CONSULT [id number] 1 Notes Entered by: SERINA LOWE 17 Jan 2021 0834 ------- ------- ------- ------- -- Network results Occupat ional Therapy 021 - MIMI SEPULVEDA 01/[address] [place] [address])(W arrior Op Med Cln Tm A Ad) [address] [place] [address])(Sco tt [facility] Fam Res Tm Green) TELE CONSULT [id number] 4 Notes Entered by: YAAKOV GARCIA 18 Jan 2021 1557 ------- ------- ------- ------- -- Network results Radiolo gy 021 JRS X2 BEREKET JACK 01/[address] [place] [address])(S cott [facility] Fam Res Tm Green) [address] [place] [address])(Sco tt [facility] Fam Res Tm Green) TELE CONSULT [id number] 8 Notes Entered by: YAAKOV GARCIA 18 Jan 2021 1601 ------- ------- ------- ------- -- Network results Radiolo gy 021 BEREKET DAILY 01/[address] [place] [address])(S [facility] Res Tm Green) [address] [place] [address])([facility] Res Green) TELE CONSULT [id number] 6 Notes Entered by: YAAKOV GARCIA 19 Jan 2021 133 ------- ------- ------- ------- -- Network results Orthope dics 021 BEREKET DAILY 01/[address] [place] [address])([facility] Res Tm Green) [address] [place] [address])(War rior Op Med Cln Tm A Ad) TELE CONSULT [id number] 6 Notes Entered by: Mic GARCIA 06 Feb 2021 1005 ------- ------- ------- ------- -- Network results PT 01/24/20 21 MIMI KING 02/[address] [place] [address])(W arrior Op Med Cln Tm A Ad) [address] [place] [address])([facility] Res Tm Green) TELE CONSULT [id number] 0 Notes Entered by: YAAKOV GARCIA 08 Feb 202122 ------- ------- ------- ------- -- Network results Orthope dics 021 BEREKET DAILY 02/[address] [place] [address])([facility] Res Tm Green) [address] [place] [address])(War rior Op Med Cln Tm A Ad) TELE CONSULT [id number] 6 Notes Entered by: HIMA PULIDO 08 Feb 2021 0933 ------- ------- ------- ------- -- STAT Referra kasi Greenberg (appt today)/ Salbador / (ETHAN Rojo 02/08 Referred for Appointment [address] [place] [address])(W arrior Op Med Cln Tm A Ad) [address] [place] [address])(War rior Op Med Cln Tm A Ad) TELE CONSULT [id number] 1 Notes Entered by: Jo Ann CARSON 09 Feb 2021 0904 ------- ------- ------- ------- -- Network results Surgery 021 MIMI BARRIOS 02/[address] [place] [address])(W arrior Op Med Cln Tm A Ad) [address] [place] [address])(War rior Op Med Cln Tm A Ad) TELE CONSULT [id number] 4 Notes Entered by: Jo Ann CARSON 15 Feb 2021 1029 ------- ------- ------- ------- -- Network results Surgery 021 MIMI BARRIOS 02/[address] [place] [address])(W arrior Op Med Cln Tm A Ad) [address] [place] [address])(War rior Op Med Cln Tm A Ad) TELE CONSULT [id number] 2 Notes Entered by: RASTA FINK 15 Feb 2021 1247 ------- ------- ------- ------- -- ETHAN Yang 02/15 Referred for Appointment [address] [place] [address])(W arrior Op Med Cln Tm A Ad) [address] [place] [address])(War rior Op Med Cln Tm A Ad) TELE CONSULT [id number] 8 Notes Entered by: PARAS ZAPATA 23 Feb 2021 0852 ------- ------- ------- ------- -- med refill/ PARAS Lazaro 02/23 Medication Refill Forwarded [address] [place] [address])(W arrior Op Med Cln Tm A Ad) [address] [place] [address])(Sco tt [facility] Fam Res Tm Green) TELE CONSULT [id number] 9 Notes Entered by: Jo Ann CARSON 02 Mar 2021 1201 ------- ------- ------- ------- -- Network results Orthope dics 021 BEREKET JUNIOR 03/[address] [place] [address])(S [facility] Fam Res Tm Green) [address] [place] [address])(War rior Op Med Cln Tm A Ad) TELE CONSULT [id number] 4 Notes Entered by: RASTA FINK 14 Mar 2021 1332 ------- ------- ------- ------- -- ETHAN Yang 03/14 Referred for Appointment [address] [place] [address])(W arrior Op Med Cln Tm A Ad) [address] [place] [address])(Pediatric Hospitalist ecology) OUTPATIENT [id number] Annual Exam LAUREN VALERA 03/24 Released w/o Limitations [address] [place] [address])([facility] gy) [address] [place] [address])(Shahzad matology) OUTPATIENT [id number] Skin check JUWAN CRANE 03/27 Released w/o Limitations [address] [place] [address])([facility]) [address] [place] [address])(War rior Op Med Cln Tm A Ad) TELE CONSULT [id number] 8 Notes Entered by: Jo Ann CARSON 27 Mar 2021 1051 ------- ------- ------- ------- -- Network results Surgery 021 MIMI BARRIOS 03/[address] [place] [address])(W arrior Op Med Cln Tm A Ad) [address] [place] [address])(War rior Op Med Cln Tm A Ad) TELE CONSULT [id number] 4 Notes Entered by: HIMA PULIDO 12 Apr 2021 1015 ------- ------- ------- ------- -- Sx - Loss of Voice and Painful Urinati on/Ananya ert/210 .517.36 45 ETHAN HILL 04/12 Referred for Appointment [address] [place] [address])(W arrior Op Med Cln Tm A Ad) [address] [place] [address])(War rior Op Med Cln Tm A Ad) TELE CONSULT [id number] 2 Notes Entered by: Jo Ann CARSON 12 Apr 2021 1345 ------- ------- ------- ------- -- Network results Urgent Care 021 MIMI BARRIOS 04/[address] [place] [address])(W arrior Op Med Cln Tm A Ad) [address] [place] [address])(War rior Op Med Cln Tm A Ad) TELE CONSULT [id number] 9 Notes Entered by: STUART PONCE 14 Apr 2021 0922 ------- ------- ------- ------- -- Network results Physica l Therapy 021 MIMI RECINOS 04/[address] [place] [address])(W arrior Op Med Cln Tm A Ad) [address] [place] [address])(Pediatric Hospitalist ecology) OUTPATIENT [id number] pessary fitting CLAYTON KLINE 05/08 Released w/o Limitations [address] [place] [address])(G ynecolo gy) [facility] Medical [facility] Naz [facility] ([facility])(War rior Op Med Cln Tm A Ad) OUTPATIENT [id number] [facility] [id number] MIMI MALDONADO 05/17 Released w/o Limitations [address] [place] [address] Naz [facility] ([facility])(W arrior Op Med Cln Tm A Ad) [address] [place] [address])(Aud iology Procedure s) OUTPATIENT [id number] [facility] 05/26 Released w/o Limitations [address] [place] [address] Group Naz [facility] ([facility])(A udiolog y Procedu res) [address] [place] [address] Naz [facility])(Bas e Operation al Medicine Clin) OUTPATIENT [id number] [facility] MIMI HERNÁNDEZ 06/23 Released w/o Limitations [address] [place] [address] Group Naz [facility] ([facility])(B ase Operati onal Medicin e Clin) [address] [place] [address])(Bas e Operation al Medicine Clin) OUTPATIENT [id number] ANN AIKEN 06/26 Released w/o Limitations [address] [place] [address])(B ase Operati onal Medicin e Clin) [address] [place] [address])(Shahzad matology) OUTPATIENT [id number] skin concern s JUWAN CRANE Lonnie 07/14 Released w/o Limitations [address] [place] [address] Naz [facility] ([facility])(D ermatol ogy) [address] [place] [address])(War rior Op Med Cln Tm A Ad) TELE CONSULT [id number] 1 Notes Entered by: DANIA GONZALEZ 14 Jul 2021 1353 ------- ------- ------- ------- -- Akanksha Greenberg / Salbador / - ETHAN Trujillo 07/14 Other Not Elsewhere Classified [address] [place] [address])(W arrior Op Med Cln Tm A Ad) [address] [place] [address] Naz [facility])(War rior Op Med Cln Tm A Ad) TELE CONSULT [id number] Notes Entered by: SERINA LOWE 15 Aug 2021 1532 ------- ------- ------- ------- -- Network results Anes/ Pain Managem ent 021 MIMI JOHNSTON 08/[address] [place] [address])(W arrior Op Med Cln Tm A Ad) [address] [place] [address])(War rior Op Med Cln Tm A Ad) TELE CONSULT [id number] Notes Entered by: HIMA PULIDO 30 Aug 2021 0716 ------- ------- ------- ------- -- STAT Referra l Request (appt Aug)/Ann-Marie pinzonert/2 [phone] ETHAN HILL 08/30 Other Not Elsewhere Classified [address] [place] [address])(W arrior Op Med Cln Tm A Ad) [address] [place] [address])(Sco tt [facility] FAMRES Tm Blue) OUTPATIENT [id number] [employer] - Referra l Renewal for pain managem ent, DO NAYLOR 10/04 Released w/o Limitations [address] [place] [address])(S cott [facility] FAMRES Tm Blue) [address] [place] [address])(Sco tt [facility] FAMRES Tm Blue) TELE CONSULT [id number] 5 Notes Entered by: BRETT WAY 11 Oct 2021 1601 ------- ------- ------- ------- -- Referra l Request SHAHIDA PARIKH 10/11 Other Not Elsewhere Classified [address] [place] [address])(S cott [facility] FAMRES Tm Blue) [address] [place] [address])(Sco tt [facility] FAMRES Tm Blue) TELE CONSULT [id number] Notes Entered by: Lonnie JAVIER 08 Feb 2022 0931 ------- ------- ------- ------- -- patient admissi on RASHAD ENNIS 02/[address] [place] [address] Naz [facility])(S cott [facility] HotGrindsRES Tm Blue) [address] [place] [address])(Sco tt [facility] FAMRES Tm Blue) TELE CONSULT [id number] 9 Notes Entered by: Selma VIDALES 12 Feb 2022 1157 ------- ------- ------- ------- -- NETWORK RESULTS [facility] ge [facility] 02-05-22 RASHAD ENNIS 02/[address] [place] [address] Naz [facility])(S cott [facility] HotGrindsRES Tm Blue) [address] [place] [address])(Sco tt [facility] FAMRES Tm Blue) TELE CONSULT [id number] 2 Notes Entered by: DANIA GONZALEZ 12 Feb 2022 1453 ------- ------- ------- ------- -- Physica l Therapy Referra l Req - Special ist F/U/ Patricia beverly/ [phone] SHAHIDA PARIKH 02/12 Other Not Elsewhere Classified [address] [place] [address])(S cott [facility] FAMRES Tm Blue) [address] [place] [address] Naz [facility])(Sco tt [facility] Fam Res Tm Green) TELE CONSULT [id number] 9 Notes Entered by: LOUIS HAIR 12 Feb 2022 1559 ------- ------- ------- ------- -- SHAHIDA Whitney 02/12 Other Not Elsewhere Classified [address] [place] [address])(S cott [facility] Fam Res Tm Green) [address] [place] [address])(Sco tt [facility] FAMRES Tm Blue) TELE CONSULT [id number] 9 Notes Entered by: ZACHERY MCDANIELS 14 Feb 2022 0853 ------- ------- ------- ------- -- Network Results - Inpatie nt Dischar ge Summary 02/05/22- 02/09/22 RASHAD ENNIS S 02/[address] [place] [address] Group Naz [place] ([facility])(S cott [facility] FAMRES Tm Blue) [address] [place] [address] Naz [facility])(Pediatric Hospitalist ecology) OUTPATIENT [id number] [phone] Annual Exam LAUREN VALERA 02/21 Released w/o Limitations [address] [place] [address] Naz [place] ([facility])(Blanca hall gy) [facility] MGMT-ORAL HEALTH LIT [id number] Diagnos is: ICD-10- CM K05.00 Acute gingivi tis, plaque induced JUNGE,TERR I 10/04 [facility] LIMITED OCCLUSAL ADJUSTMENT [id number] Diagnos is: ICD-10- CM Z01.20 Encount er for dental exam and cleanin g w/o abnorma l finding s MUNTEAN,SA BLE A 10/04 [facility] OFFICE O/P EST LOW 20 MIN [id number] Diagnos is: ICD-10- CM C44.91 Basal cell carcino ma of skin, unspeci GABY Luna 03/30 [facility] Outpatient Encounter [id number] 03/31 [facility] OFFICE O/P EST LOW 20 MIN [id number] Diagnos is: ICD-10- CM L73.9 Follicu lar disorde r, unspeci fied BRIJESH,GERGG R 04/06 [facility] Outpatient Encounter [id number] GRAHAM PULIDO S 04/09 [facility] CASE [facility] LIT [id number] [id number] Diagnos is: ICD-10- CM K03.6 Deposit s [accret ions] on teeth DULCE MARIA,BRIDGETTE I 04/10 [facility] Outpatient Encounter [id number] 04/11 [facility] Outpatient Encounter [id number] 04/11 [facility] OFFICE O/P NEW MOD 45 MIN [id number] Diagnos is: ICD-10- CM Z01.00 Encount er for exam of eyes and vision w/o abnorma l finding s Jo Ann BROWER 07/08 [facility] OFFICE O/P EST LOW 20 MIN [id number] Diagnos is: ICD-10- CM N30.00 Acute cystiti s without hematur NINFA Espino M 08/13 [facility] Outpatient Encounter [id number] 10/14 [facility] Outpatient Encounter [id number] 10/20 [facility] OFFICE O/P EST MOD 30 MIN [id number] Diagnos is: ICD-10- CM M54.51 Vertebr ogenic low back pain GABY ANNA 12/25 [facility] Encounter [id number] GABY ANNA 12/25 [facility] Out[facility] Encounter [id number] VEROWALE HEATHLIZ CONDON DAMIANABRAHAN G 01/04 [facility] OFF/OP CNSLTJ NEW/EST MOD 40 [id number] [id number] Diagnos is: ICD-10- CM M79.672 Pain in left foot KATALINA NURIA MCGHEEE 01/05 [facility] Outpatient Encounter [id number] YONNY STILLLIZ JIMENEZ G 01/21 [facility] En[facility] [id number] YONNY STILLLIZ DAMIANTE G [facility] Encounter [id number] YONNY STILLLIZ DAMIANABRAHAN G 03/08 [facility] Procedures Combined list of: 1) Procedures from Department of Veterans Affairs facilities going back up to thelast 18 months, not all [place] non-surgical procedures are included; 2) All procedures from the Department of Defense facilities. Procedure Procedure Type Code Date Perfomer Comments Sourc e No data available for this section [facility] SCREENING PAPANICOLAOU SMEAR; OBTAINING, PREPARING AND CONVEYANCE OF CERVICAL OR VAGINAL SMEAR TO LABORATORY 2001 [facility] INCISION AND DRAINAGE OF ABSCESS (EG, CARBUNCLE, SUPPURATIVE HIDRADENITIS, CUTANEOUS OR SUBCUTANEOUS ABSCESS, CYST, FURUNCLE, OR PARONYCHIA); SIMPLE OR SINGLE 2004 [facility] SCREENING PAPANICOLAOU SMEAR; OBTAINING, PREPARING AND CONVEYANCE OF CERVICAL OR VAGINAL SMEAR TO LABORATORY 2004 [facility] PSYCHIATRIC EVALUATION OF HOSPITAL RECORDS, OTHER PSYCHIATRIC REPORTS, PSYCHOMETRIC AND/OR PROJECTIVE TESTS, AND OTHER ACCUMULATED DATA FOR MEDICALDIAGNOSTIC PURPOSES 2004 [facility] PSYCHIATRIC EVALUATION OF HOSPITAL RECORDS, OTHER PSYCHIATRIC REPORTS, PSYCHOMETRIC AND/OR PROJECTIVE TESTS, AND OTHER ACCUMULATED DATA FOR MEDICALDIAGNOSTIC PURPOSES 2004 [facility] HANDLING AND/OR CONVEYANCE OF SPECIMEN FOR TRANSFER FROM THE OFFICE TO A LABORATORY 2003 [facility] ARTHROCENTESIS, ASPIRATION AND/OR INJECTION, INTERMEDIATE JOINT OR BURSA (EG, TEMPOROMANDIBULAR, ACROMIOCLAVICULAR, WRIST, ELBOW OR ANKLE, OLECRANON BURSA); WITHOUT ULTRASOUND GUIDANCE 2016 [facility] OCCUPATIONAL THERAPY RE-EVALUATION 2016 [facility] OCCUPATIONAL THERAPY RE-EVALUATION 2016 [facility] FITTING OF SPECTACLES, EXCEPT FOR APHAKIA; MONOFOCAL 2016 [facility] WRIST HAND FINGER ORTHOSIS, RIGID WITHOUT JOINTS, MAY INCLUDE SOFT INTERFACE MATERIAL; STRAPS, CUSTOM FABRICATED, INCLUDES FITTING AND ADJUSTMENT 2016 [facility] WRIST HAND ORTHOSIS, WRIST EXTENSION CONTROL COCK-UP, NON MOLDED, PREFABRICATED, [id number] 2016 [facility] BIOPSY OF SKIN, SUBCUTANEOUS TISSUE AND/OR MUCOUS MEMBRANE (INCLUDING SIMPLE CLOSURE),UNLESS OTHERWISE LISTED (SEPARATE PROCEDURE); EACH SEPARATE/ADD LESION (LIST SEP IN ADD TO CODE FOR PRIMARY PROC) 2015 [facility]D INJECT(S),OF DIAG/THER SUBS(S) (INCLD ANES,ANTISPASMODIC, OPIOID,STEROID,OTH HARRISON),NOT INCLD NEUROLYTIC SUB,INCLD NEEDLE/CATH PLCMNT,INCLDS CONT FOR LOCALIZATION WHEN PERFORM,EPIDUR/SUBA BETO;LUMB/SAC 2014 [facility]D BIOPSY OF SKIN, SUBCUTANEOUS TISSUE AND/OR MUCOUS MEMBRANE (INCLUDING SIMPLE CLOSURE),UNLESS OTHERWISE LISTED (SEPARATE PROCEDURE); EACH SEPARATE/ADD LESION (LIST SEP IN ADD TO CODE FOR PRIMARY PROC) 2014 [facility] PSYCHOTHERAPY, 60 MINUTES WITH PATIENT 2014 [facility] SCREENING PAPANICOLAOU SMEAR; OBTAINING, PREPARING AND CONVEYANCE OF CERVICAL OR VAGINAL SMEAR TO LABORATORY 2014 [facility] PSYCHIATRIC DIAGNOSTIC EVALUATION 2014 [facility]D INJECT(S),OF DIAG/THER SUBS(S) (INCLD ANES,ANTISPASMODIC, OPIOID,STEROID,OTH HARRISON),NOT INCLD NEUROLYTIC SUB,INCLD NEEDLE/CATH PLCMNT,INCLDS CONT FOR LOCALIZATION WHEN PERFORM,EPIDUR/SUBA BETO;LUMB/SAC 2014 [facility] BIOPSY OF SKIN, SUBCUTANEOUS TISSUE AND/OR MUCOUS MEMBRANE (INCLUDING SIMPLE CLOSURE), UNLESS OTHERWISE LISTED; SINGLE LESION 2014 DoD INJECTION, DEXAMETHASONE SODIUM PHOSPHATE, 1 MG 2013 DoD INJECTION, DEXAMETHASONE SODIUM PHOSPHATE, 1 MG 2013 DoD CERVICAL OR VAGINAL CANCER SCREENING; PELVIC AND CLINICAL BREAST EXAMINATION 2012 DoD WAIVER SERVICES; NOT OTHERWISE SPECIFIED (NOS) 2021 DoD TELE ASSESS & MGT SRV PROV QUAL NONPHYS HLTH CARE PRO TO EST PAT,PARENT,GUARD NOT ORIG REL ASSESS & MGT SRV PROV W/IN PREV 7 DAYS NOR LEAD ASSESS & MGT SRV/PX W/IN NXT 24 HR/SOON APT;5-10 MIN MED DIS 2020 DoD ADMINISTRATION OF PATIENT-FOCUSED HEALTH RISK ASSESSMENT INSTRUMENT (EG, HEALTH HAZARD APPRAISAL) WITH SCORING AND DOCUMENTATION, PER STANDARDIZED INSTRUMENT 2020 DoD TELE ASSESS & MGT SRV PROV QUAL NONPHYS HLTH CARE PRO TO EST PAT,PARENT,GUARD NOT ORIG REL ASSESS & MGT SRV PROV W/IN PREV 7 DAYS NOR LEAD ASSESS & MGT SRV/PX W/IN NXT 24 HR/SOON APT;5-10 MIN MED DIS 2020 DoD ADMINISTRATION OF PATIENT-FOCUSED HEALTH RISK ASSESSMENT INSTRUMENT (EG, HEALTH HAZARD APPRAISAL) WITH SCORING AND DOCUMENTATION, PER STANDARDIZED INSTRUMENT 2020 DoD PURE TONE AUDIOMETRY (THRESHOLD), AUTOMATED; AIR ONLY 2020 DoD FITTING AND INSERTION OF PESSARY OR OTHER INTRAVAGINAL SUPPORT DEVICE 2020 DoD TELE ASSESS & MGT SRV PROV QUAL NONPHYS HLTH CARE PRO TO EST PAT,PARENT,GUARD NOT ORIG REL ASSESS & MGT SRV PROV W/IN PREV 7 DAYS NOR LEAD ASSESS & MGT SRV/PX W/IN NXT 24 HR/SOON APT;5-10 MIN MED DIS 2020 DoD DESTRUCTION (EG, LASER SURGERY, ELECTROSURGERY, CRYOSURGERY, CHEMOSURGERY, SURGICAL CURETTEMENT), PREMALIGNANT LESIONS (EG, ACTINIC KERATOSES); FIRST LESION 2020 DoD TELE ASSESS & MGT SRV PROV QUAL NONPHYS HLTH CARE PRO TO EST PAT,PARENT,GUARD NOT ORIG REL ASSESS & MGT SRV PROV W/IN PREV 7 DAYS NOR LEAD ASSESS & MGT SRV/PX W/IN NXT 24 HR/SOON APT;5-10 MIN MED DIS 2020 DoD TELE ASSESS & MGT SRV PROV QUAL NONPHYS HLTH CARE PRO TO EST PAT,PARENT,GUARD NOT ORIG REL ASSESS & MGT SRV PROV W/IN PREV 7 DAYS NOR LEAD ASSESS & MGT SRV/PX W/IN NXT 24 HR/SOON APT;5-10 MIN MED DIS 2020 DoD FITTING OF SPECTACLES, EXCEPT FOR APHAKIA; MONOFOCAL 2020 DoD WAIVER SERVICES; NOT OTHERWISE SPECIFIED (NOS) 2020 DoD HEALTH BEHAVIOR ASSESSMENT, OR RE-ASSESSMENT (IE, HEALTH-FOCUSED CLINICAL INTERVIEW, BEHAVIORAL OBSERVATIONS, CLINICAL DECISION MAKING) 2020 DoD INJECTION(S); SINGLE TENDON SHEATH, OR LIGAMENT, APONEUROSIS (EG, PLANTAR FASCIA) 2020 DoD HEALTH BEHAVIOR INTERVENTION, INDIVIDUAL, [id number]; INITIAL 30 MINUTES 2020 DoD PUNCH BIOPSY OF SKIN (INCLUDING SIMPLE CLOSURE, WHEN PERFORMED); SINGLE LESION 2020 DoD INJECTION(S); SINGLE TENDON ORIGIN/INSERTION 2020 DoD PSYCHIATRIC DIAGNOSTIC EVALUATION 2020 [facility] ULTRASOUND,LIMITED, JT/FOCAL EVALUATION OF OTH NONVASCULAR EXTREMITY STRUC(S) (EG,JT SPACE,BESS-ARTICUL TEND[S],MUSC[S],NER V[S],OTH SOFT-TISS STRUC[S],OR SOFT-TISS MASS[ES]),REAL-TIME W IMAGE DOCUMENT 2020 DoD WAIVER SERVICES; NOT OTHERWISE SPECIFIED (NOS) 2020 DoD WAIVER SERVICES; NOT OTHERWISE SPECIFIED (NOS) 2019 DoD TELE ASSESS & MGT SRV PROV QUAL NONPHYS HLTH CARE PRO TO EST PAT,PARENT,GUARD NOT ORIG REL ASSESS & MGT SRV PROV W/IN PREV 7 DAYS NOR LEAD ASSESS & MGT SRV/PX W/IN NXT 24 HR/SOON APT;5-10 MIN MED DIS 2019 DoD ADMINISTRATION OF PATIENT-FOCUSED HEALTH RISK ASSESSMENT INSTRUMENT (EG, HEALTH HAZARD APPRAISAL) WITH SCORING AND DOCUMENTATION, PER STANDARDIZED INSTRUMENT 2019 DoD TELE ASSESS & MGT SRV PROV QUAL NONPHYS HLTH CARE PRO TO EST PAT,PARENT,GUARD NOT ORIG REL ASSESS & MGT SRV PROV W/IN PREV 7 DAYS NOR LEAD ASSESS & MGT SRV/PX W/IN NXT 24 HR/SOON APT;5-10 MIN MED DIS 2019 DoD WAIVER SERVICES; NOT OTHERWISE SPECIFIED (NOS) 2019 DoD DESTRUCT (EG, LASER SURGERY, ELECTROSURGERY, CRYOSURGERY, CHEMOSURGERY, SURGICAL CURETTEMENT), PREMALIGNANT LESIONS (EG, ACTINIC KERATOSES); 2ND THRU 14 LESIONS, EA (LIST SEP ADDITION CD, 1ST LESION) 2019 DoD MANUAL THERAPY TECHNIQUES (EG, MOBILIZATION/ MANIPULATION, MANUAL LYMPHATIC DRAINAGE, MANUAL TRACTION), 1 OR MORE REGIONS, EACH 15 MINUTES 2019 DoD FITTING OF SPECTACLES, EXCEPT FOR APHAKIA; MONOFOCAL 2019 DoD TELE ASSESS & MGT SRV PROV QUAL NONPHYS HLTH CARE PRO TO EST PAT,PARENT,GUARD NOT ORIG REL ASSESS & MGT SRV PROV W/IN PREV 7 DAYS NOR LEAD ASSESS & MGT SRV/PX W/IN NXT 24 HR/SOON APT;5-10 MIN MED DIS 2019 DoD TELE ASSESS & MGT SRV PROV QUAL NONPHYS HLTH CARE PRO TO EST PAT,PARENT,GUARD NOT ORIG REL ASSESS & MGT SRV PROV W/IN PREV 7 DAYS NOR LEAD ASSESS & MGT SRV/PX W/IN NXT 24 HR/SOON APT;5-10 MIN MED DIS 2018 DoD ONLINE ASSESS &MANAG SERV PROVIDE,A QUAL NONPHYS HCP TO AN ESTABLISHED PAT/GUARDIAN,NOT ORIGINAT FRM RELAT ASSESS &MANAG SERV PROVIDE W/IN THE PREV 7 DAYS,USE THE INTERNET/SIMILAR [employer] NETWORK 2018 DoD DETERMINATION OF REFRACTIVE STATE 2018 DoD TELE ASSESS & MGT SRV PROV QUAL NONPHYS HLTH CARE PRO TO EST PAT,PARENT,GUARD NOT ORIG REL ASSESS & MGT SRV PROV W/IN PREV 7 DAYS NOR LEAD ASSESS & MGT SRV/PX W/IN NXT 24 HR/SOON APT;5-10 MIN MED DIS 2017 DoD LAPAROSCOPY, SURGICAL, WITH VAGINAL HYSTERECTOMY, FOR UTERUS 250 G OR LESS; WITH REMOVAL OF TUBE(S) AND/OR OVARY(S) 2017 DoD SELF-CARE/HOME MANAGMENT TRAIN (EG,ACT OF DAILY LIVING (ADL) &COMPENSAT TRAIN,MEAL PREPARATION,SAFETY PROCS,AND INSTRUCT IN USE OF ASST TECHNOLOGY DEV/ADPT EQUIP) DIR ONE-ON-ONE CONT,EA 15 MINUTES 2017 DoD LAPAROSCOPY, ABDOMEN, PERITONEUM, AND OMENTUM, DIAGNOSTIC, WITH OR WITHOUT COLLECTION OF SPECIMEN(S) BY BRUSHING OR WASHING (SEPARATE PROCEDURE) 2017 DoD TELE ASSESS & MGT SRV PROV QUAL NONPHYS HLTH CARE PRO TO EST PAT,PARENT,GUARD NOT ORIG REL ASSESS & MGT SRV PROV W/IN PREV 7 DAYS NOR LEAD ASSESS & MGT SRV/PX W/IN NXT 24 HR/SOON APT;5-10 MIN MED DIS 2017 DoD ONLINE ASSESS &MANAG SERV PROVIDE,A QUAL NONPHYS HCP TO AN ESTABLISHED PAT/GUARDIAN,NOT ORIGINAT FRM RELAT ASSESS &MANAG SERV PROVIDE W/IN THE PREV 7 DAYS,USE THE INTERNET/SIMILAR [employer] NETWORK 2017 DoD TELE ASSESS & MGT SRV PROV QUAL NONPHYS HLTH CARE PRO TO EST PAT,PARENT,GUARD NOT ORIG REL ASSESS & MGT SRV PROV W/IN PREV 7 DAYS NOR LEAD ASSESS & MGT SRV/PX W/IN NXT 24 HR/SOON APT;5-10 MIN MED DIS 2017 DoD TELE ASSESS & MGT SRV PROV QUAL NONPHYS HLTH CARE PRO TO EST PAT,PARENT,GUARD NOT ORIG REL ASSESS & MGT SRV PROV W/IN PREV 7 DAYS NOR LEAD ASSESS & MGT SRV/PX W/IN NXT 24 HR/SOON APT;5-10 MIN MED DIS 2017 DoD TELE ASSESS & MGT SRV PROV QUAL NONPHYS HLTH CARE PRO TO EST PAT,PARENT,GUARD NOT ORIG REL ASSESS & MGT SRV PROV W/IN PREV 7 DAYS NOR LEAD ASSESS & MGT SRV/PX W/IN NXT 24 HR/SOON APT;5-10 MIN MED DIS 2017 DoD TELE ASSESS & MGT SRV PROV QUAL NONPHYS HLTH CARE PRO TO EST PAT,PARENT,GUARD NOT ORIG REL ASSESS & MGT SRV PROV W/IN PREV 7 DAYS NOR LEAD ASSESS & MGT SRV/PX W/IN NXT 24 HR/SOON APT;5-10 MIN MED DIS 2016 [facility] CYTOPATHOLOGY, SMEARS, CERVICAL OR VAGINAL, UP TO THREE SMEARS; SCREENING BY MANAGER SALT UNDER PHYSICIAN SUPERVISION 2000 [facility] EDUCATIONAL SUPPLIES, SUCH BOOKS, TAPES, AND PAMPHLETS, FOR THE PATIENT'S EDUCATION AT COST TO PHYSICIAN OR OTHER QUALIFIED HEALTH RETAIL SALES SPECIALIST 2000 [facility] Non-Physician Phone Call To Patient/Provider Brief (5-10min) Non-Physician Phone Call To Patient/Provider Brief (5-10min) [id number] 2018 JULIA VALDEZ [facility] Internet Med Svc Qual Nonphys Healthcare Prof Estab Patient Internet Med Svc Qual Nonphys Healthcare Prof Estab Patient [id number] 2018 JACK IGLESIAS [facility] Determination Of Refractive State Determination Of Refractive State [id number] 2018 ANJALI CUEVA [facility] Ophthalmological New Patient Start Comprehensive Care Ophthalmological New Patient Start Comprehensive Care [id number] 2018 ANJALI CUEVA [facility] Non-Physician Phone Call To Patient/Provider Brief (5-10min) Non-Physician Phone Call To Patient/Provider Brief (5-10min) [id number] 2017 ETHAN HILL [facility] Non-Physician Phone Call To Patient/Provider Brief (5-10min) Non-Physician Phone Call To Patient/Provider Brief (5-10min) [id number] 2017 LIZ ORELLANA [facility] Internet Med Svc Qual Nonphys Healthcare Prof Estab Patient Internet Med Svc Qual Nonphys Healthcare Prof Estab Patient [id number] 2017 ANN JACKSON [facility] Non-Physician Phone Call To Patient/Provider Brief (5-10min) Non-Physician Phone Call To Patient/Provider Brief (5-10min) [id number] 2017 ETHAN HILL [facility] Non-Physician Phone Call To Patient/Provider Brief (5-10min) Non-Physician Phone Call To Patient/Provider Brief (5-10min) [id number] 2017 ETHAN HILL Non-Physician Phone Call To Patient/Provider Brief (5-10min) Non-Physician Phone Call To Patient/Provider Brief (5-10min) [id number] 2017 ETHAN HILL Non-Physician Phone Call To Patient/Provider Brief (5-10min) Non-Physician Phone Call To Patient/Provider Brief (5-10min) [id number] 2016 ANN BENSON Corticosteroids Injection Intraarticular Right Wrist Corticosteroids Injection Intraarticular Right Wrist 2016 SUNITA DUTTA Occupational Therapy Re-Evaluation Occupational Therapy Re-Evaluation 80107 2016 QASIM CORREA Occupational Therapy Re-Evaluation Occupational Therapy Re-Evaluation 58057 2016 QASIM CORREA [employer] Fitting Monofocals (Not For Aphakia) [employer] Fitting Monofocals (Not For Aphakia) 90407 2016 KATTY ELLER Determination Of Refractive State Determination Of Refractive State 14533 2016 KATTY ELLER Ophthalmological New Patient Start Comprehensive Care Ophthalmological New Patient Start Comprehensive Care [id number] 2016 KATTY ELLER Kvyrx-zwny-hoafej orthosis, rigid without joints, may include soft interface material; straps, custom fabricated, includes fitting and adjustment 2016 QASIM CORREA Physical Therapy Education Orthotics Training 2016 QASIM CORREA 30 m in custom splinting [facility] Occupational Therapy Evaluation Occupational Therapy Evaluation 03524 2016 QASIM CORREA Wrist hand orthosis, wrist extension control cock-up, non molded, prefabricated, [id number] 2016 BALBIR FAJARDO Physical Therapy Education Orthotics Training 2016 BALBIR FAJARDO Biopsy Skin Each Additional Lesion Biopsy Skin Each Additional Lesion 47558 2015 FRANK GUERIN Biopsy Skin Biopsy Skin 59724 2015 FRANK GUERIN Corticosteroid Inj Interlaminar Lumbar L5 - S1 Corticosteroid Inj Interlaminar Lumbar L5 - S1 86565 2014 KAREEM ESTRADA [facility] Epidurography Epidurography 26185 2014 KAREEM ESTRADA [facility] Fluoroscopic Guidance/Localiz Of Needle For Spinal Injection 2014 KAREEM ESTRADA Biopsy Skin Each Additional Lesion Biopsy Skin Each Additional Lesion 33758 2014 FRANK GUERIN [facility] Biopsy Skin Biopsy Skin 51152 2014 FRANK GUERIN [facility] Screening papanicolaou smear; obtaining, preparing and conveyance of cervical or vaginal smear to laboratory 2014 DEMARCUS MARCUS [facility] Corticosteroid Inj Interlaminar Lumbar L5 - S1 Corticosteroid Inj Interlaminar Lumbar L5 - S1 93807 2014 TYRELL CAMERON Epidural Steroid Injection L5-S1 Interlaminar The patient demonstrated appropriate understanding of the potential benefits and risks of this procedure and signed consent. The site was verified by the patient and doctor. The patient was on no anticoagulant or antiplatelet medications, had a auto crane driver present, and had no known allergies to the medication used. Vitals were taken and found to be normal. The patient was then taken to the operating room. Monitors were placed. The patient was placed in the prone position with a pillow placed under the lower abdomen and at the head. The back was prepped with chloraprep. A fenestrated sterile drape was placed. Strict sterile technique was used throughout the procedure with sterile gloves, hat, and mask. A 20 gauge Tuohy needle was then advanced with fluoroscopic guidance in the interlaminar space of L5-S1. A loss of resistance technique was used. A lateral view and anterior posterior view confirmed correct placement of the needle in the epidural space. After negative aspiration of heme/CSF, 2 mls of Isovue 300 demostrated epidural spread. There was no subarachnoid or intravascular spread observed in the AP or lateral view. 8mg of decadron and 3mls of 0.25% marcaine (total volume 5 mls) was given. The needle was then withdrawn and a bandaid placed. The patient was recovered by a RN in the recovery area. After the patient demonstrated stable vital signs, no weakness or paresthesias, and denied significant pain, they were discharged home. The patient tolerated the procedure well without any complaints. [facility] Epidurography Epidurography 51830 2014 TYRELL CAMERON [facility] Fluoroscopic Guidance/Localiz Of Needle For Spinal Injection 2014 TYRELL CAMERON [facility] Biopsy Skin Biopsy Skin 73911 2014 SIMRAN GUAN [facility] Corticosteroid Inj Interlaminar Lumbar L5 - S1 Corticosteroid Inj Interlaminar Lumbar L5 - S1 37054 2013 TYRELL CAMERON Epidural Steroid Injection L5-S1 Interlaminar The patient demonstrated appropriate understanding of the potential benefits and risks of this procedure and signed consent. The site was verified by the patient and doctor. The patient was on no anticoagulant or antiplatelet medications, had a auto crane driver present, and had no known allergies to the medication used. Vitals were taken and found to be normal. The patient was then taken to the operating room. Monitors were placed. The patient was placed in the prone position with a pillow placed under the lower abdomen and at the head. The back was prepped with chloraprep. A fenestrated sterile drape was placed. Strict sterile technique was used throughout the procedure with sterile gloves, hat, and mask. A 20 gauge Tuohy needle was then advanced with fluoroscopic guidance in the interlaminar space of L5-S1. A loss of resistance technique was used. A lateral view and anterior posterior view confirmed correct placement of the needle in the epidural space. After negative aspiration of heme/CSF, 2 mls of Isovue 300 demostrated epidural spread. There was no subarachnoid or intravascular spread observed in the AP or lateral view. 8mg of decadron and 3mls of 0.25% marcaine (total volume 5 mls) was given. The needle was then withdrawn and a bandaid placed. The patient was recovered by a RN in the recovery area. After the patient demonstrated stable vital signs, no weakness or paresthesias, and denied significant pain, they were discharged home. The patient tolerated the procedure well without any complaints. [facility] Epidurography Epidurography 99103 2013 TYRELL CAMERON [facility] Fluoroscopic Guidance/Localiz Of Needle For Spinal Injection 2013 TYRELL CAMERON Corticosteroid Inj Interlaminar Lumbar L5 - S1 Corticosteroid Inj Interlaminar Lumbar L5 - S1 20948 2013 TYRELL CAMERON [facility] Epidurography Epidurography 56514 2013 TYRELL CAMERON [facility] Fluoroscopy Fluoroscopy 80727 2013 TYRELL CAMERON Epidural Steroid Injection L5-S1 Interlaminar The patient demonstrated appropriate understanding of the potential benefits and risks of this procedure and signed consent. The site was verified by the patient and doctor. The patient was on no anticoagulant or antiplatelet medications, had a auto crane driver present, and had no known allergies to the medication used. Vitals were taken and found to be normal. The patient was then taken to the operating room. Monitors were placed. The patient was placed in the prone position with a pillow placed under the lower abdomen and at the head. The back was prepped with chloraprep. A fenestrated sterile drape was placed. Strict sterile technique was used throughout the procedure with sterile gloves, hat, and mask. A 20 gauge Tuohy needle was then advanced with fluoroscopic guidance in the interlaminar space of L5-S1. A loss of resistance technique was used. A lateral view and anterior posterior view confirmed correct placement of the needle in the epidural space. After negative aspiration of heme/CSF, 2 mls of Isovue 300 demostrated epidural spread. There was no subarachnoid or intravascular spread observed in the AP or lateral view. 8mg of decadron and 3mls of 0.25% marcaine (total volume 5 mls) was given. The needle was then withdrawn and a bandaid placed. The patient was recovered by a RN in the recovery area. After the patient demonstrated stable vital signs, no weakness or paresthesias, and denied significant pain, they were discharged home. The patient tolerated the procedure well without any complaints. [facility] Cervical or vaginal cancer screening; pelvic and clinical breast examination 2012 DEMARCUS MARCUS DoD Psychiatric Evaluation Review of Records and Reports Psychiatric Evaluation Review of Records and Reports 33444 2012 SALBADOR BUTLER [facility] Biopsy Skin Biopsy Skin 57157 2012 MANDIE GE [facility] Excision Of Lesion Legs Benign Up to .5cm Excision Of Lesion Legs Benign Up to .5cm 01272 2011 SIMRAN HEAD [facility] Excision Of Lesion Shoulders Benign Up to .5cm Excision Of Lesion Shoulders Benign Up to .5cm 02389 2011 SIMRAN HEAD Excision Of Lesion Trunk Benign Up to .5cm Excision Of Lesion Trunk Benign Up to .5cm 02747 2011 SIMRAN HEAD [facility] Physical Medicine Physical Therapy Re-Evaluation Physical Medicine Physical Therapy Re-Evaluation 19512 2011 JESICA BRAVO [facility] Physical Therapy Neuromuscular Re-education Physical Therapy Neuromuscular Re-education 83964 2011 ROBYN BARAJAS [facility] Non-Physician Phone Call To Patient/Provider Brief (5-10min) Non-Physician Phone Call To Patient/Provider Brief (5-10min) [id number] ETHAN HILL [facility] Ophthalmological Prior Patient Start Comprehensive Care Ophthalmological Prior Patient Start Comprehensive Care 84084 ANJALI CUEVA Determination Of Refractive State Determination Of Refractive State 15441 ANJALI CUEVA [employer] [facility] Fitting Monofocals (Not For Aphakia) [employer] [facility] Fitting Monofocals (Not For Aphakia) 23684 ANJALI CUEVA Exercises A isted Exercises For ROM Exercises Assisted Exercises For ROM 68672 CODY PEOPLES Physical Therapy Mobilization Joint Physical Therapy Mobilization Joint 48188 CODY PEOPLES Destruction Of Premalignant Lesion By Any Method One Lesion Destruction Of Premalignant Lesion By Any Method One Lesion 90147 THAO RENEE Destruct Of Premalignant Lesion By Any Method 2nd Through 14 Destruct Of Premalignant Lesion By Any Method 2nd Through 14 48906 THAO RENEE Waiver services; not otherwise specified (NOS) MIMI SIU [facility] Waiver services; not otherwise specified (NOS) KEON CUEVA 30 Min Appt [facility] Ultrasound Wrist Ultrasound Wrist 79838 LATISHA HESS Ultrasonic Guidance For Needle Biopsy Ultrasonic Guidance For Needle Biopsy 12966 LATISHA AMEZQUITA Musculoskeletal Procedures Injection Tendon Origin/Insertion Musculoskeletal Procedures Injection Tendon Origin/Insertion [id number] LATISHA AMEZQUITA Waiver services; not otherwise specified (NOS) KATTY URIOSTEGUI 30 min phone contact [facility] Injection Of Tendon Sheath Injection Of Tendon Sheath [id number] LATISHA AMEZQUITA Gynecologic Services Insertion Of Pe justino Incontinence Ring Gynecologic Services Insertion Of Pessary Incontinence Ring [id number] CLAYTON KLINE [facility] Threshold Audiogram (Pure Tone) Automated Threshold Audiogram (Pure Tone) Automated [id number] AUDREY JAQUEZ [facility] Physical Therapy: ___ Se ion Segments, 15 Minutes Each Physical Therapy: ___ Session Segments, 15 Minutes Each [id number] 2011 ROBYN BARAJAS [facility] Physical Therapy Neuromuscular Re-education Physical Therapy Neuromuscular Re-education 79310 2011 [facility] Physical Therapy: ___ Se ion Segments, 15 Minutes Each Physical Therapy: ___ Session Segments, 15 Minutes Each [id number] 2011 [facility] Physical Therapy: ___ Se ion Segments, 15 Minutes Each Physical Therapy: ___ Session Segments, 15 Minutes Each 92562 2011 [facility] Physical Therapy: ___ Se ion Segments, 15 Minutes Each Physical Therapy: ___ Session Segments, 15 Minutes Each [id number] 2011 STELLA STEPHENSON 25 min. [facility] Physical Therapy Neuromuscular Re-education Physical Therapy Neuromuscular Re-education 21299 2011 BRIGIDA DELAROSA 8 min DoD Physical Therapy: ___ Se ion Segments, 15 Minutes Each Physical Therapy: ___ Session Segments, 15 Minutes Each [id number] 2011 BRIGIDA DELAROSA 15 min DoD Physical Medicine Physical Therapy Re-Evaluation Physical Medicine Physical Therapy Re-Evaluation 72004 2011 JESICA BRAVO [facility] Modalities Ultrasound Modalities Ultrasound 32693 2011 ROBYN BARAJAS [facility] Physical Therapy Neuromuscular Re-education Physical Therapy Neuromuscular Re-education 62907 2011 ROBYN BARAJAS [facility] Physical Therapy: ___ Se ion Segments, 15 Minutes Each Physical Therapy: ___ Session Segments, 15 Minutes Each 56089 2011 ROBYN BARAJAS [facility] Modalities Ultrasound Modalities Ultrasound 83357 2011 ROBYN BARAJAS [facility] Physical Therapy: ___ Se ion Segments, 15 Minutes Each Physical Therapy: ___ Session Segments, 15 Minutes Each 72543 2011 ROBYN BARAJAS [facility] Modalities Ultrasound Modalities Ultrasound 44319 2011 ROBYN BARAJAS [facility] Physical Therapy Neuromuscular Re-education Physical Therapy Neuromuscular Re-education 20583 2011 ROBYN BARAJAS [facility] Physical Therapy: ___ Se ion Segments, 15 Minutes Each Physical Therapy: ___ Session Segments, 15 Minutes Each [id number] 2011 JENN ROBYN [facility] Modalities Ultrasound Modalities Ultrasound 92455 2011 BRIGIDA DELAROSA 8 min DoD Physical Therapy: ___ Se ion Segments, 15 Minutes Each Physical Therapy: ___ Session Segments, 15 Minutes Each [id number] 2011 BRIGIDA DELAROSA 15 min DoD Modalities Ultrasound Modalities Ultrasound 88597 2011 MIRIAM ELI [facility] Physical Therapy: ___ Se ion Segments, 15 Minutes Each Physical Therapy: ___ Session Segments, 15 Minutes Each [id number] 2011 MIRIAM ELI DoD Physical Therapy: ___ Se ion Segments, 15 Minutes Each Physical Therapy: ___ Session Segments, 15 Minutes Each [id number] 2011 MOISÉS RUSSO X 25 mins DoD Physical Therapy: ___ Se ion Segments, 15 Minutes Each Physical Therapy: ___ Session Segments, 15 Minutes Each 11976 2011 JESICA BRAVO [facility] Physical Medicine Physical Therapy Evaluation Physical Medicine Physical Therapy Evaluation 49934 2011 JESICA BRAVO [facility] Physical Medicine Physical Therapy Re-Evaluation Physical Medicine Physical Therapy Re-Evaluation 74968 2010 JESICA BRAVO [facility] Modalities Cryotherapy Cold Packs Modalities Cryotherapy Cold Packs 32738 2010 CLAY WRIGHT [facility] Modalities Electrical Stimulation Unattended Modalities Electrical Stimulation Unattended 51510 2010 CLAY WRIGHT [facility] Physical Therapy: ___ Se ion Segments, 15 Minutes Each Physical Therapy: ___ Session Segments, 15 Minutes Each 99652 2010 CLAY WRIGHT [facility] Modalities Heat Hot Packs Modalities Heat Hot Packs 02834 2010 STELLA STEPHENSON 15 min. DoD Modalities Electrical Stimulation Modalities Electrical Stimulation 34625 2010 STELLA STEPHENSON 15 min. DoD Physical Therapy: ___ Se ion Segments, 15 Minutes Each Physical Therapy: ___ Session Segments, 15 Minutes Each 55118 2010 STELLA STEPHENSON 10 min. DoD Modalities Cryotherapy Cold Packs Modalities Cryotherapy Cold Packs 23591 2010 DELAROSA, BRIGIDA L 15 min DoD Modalities Electrical Stimulation Modalities Electrical Stimulation 28138 2010 [place] BRIGIDA L 15 min DoD Physical Therapy: ___ Se ion Segments, 15 Minutes Each Physical Therapy: ___ Session Segments, 15 Minutes Each 91485 2010 [place] BRIGIDA L 15 min DoD Modalities Cryotherapy Cold Packs Modalities Cryotherapy Cold Packs 39291 2010 [place] BRIGIDA L 15 min DoD Modalities Electrical Stimulation Modalities Electrical Stimulation 10868 2010 [place] BRIGIDA L 15 min DoD Physical Therapy: ___ Se ion Segments, 15 Minutes Each Physical Therapy: ___ Session Segments, 15 Minutes Each 95694 2010 [place] BRIGIDA L DoD Modalities Cryotherapy Cold Packs Modalities Cryotherapy Cold Packs 23016 2010 [facility] Modalities Electrical Stimulation Modalities Electrical Stimulation 87219 2010 [facility] Physical Therapy: ___ Se ion Segments, 15 Minutes Each Physical Therapy: ___ Session Segments, 15 Minutes Each 63073 2010 [facility] Modalities Cryotherapy Cold Packs Modalities Cryotherapy Cold Packs 46963 2010 [place] BRIGIDA L 15 min DoD Modalities Electrical Stimulation Modalities Electrical Stimulation 06440 2010 [place] BRIGIDA L 15 min DoD Physical Therapy: ___ Se ion Segments, 15 Minutes Each Physical Therapy: ___ Session Segments, 15 Minutes Each 19782 2010 [place] BRIGIDA L DoD Modalities Cryotherapy Cold Packs Modalities Cryotherapy Cold Packs 74761 2010 [place] BRIGIDA L 15 min DoD Modalities Electrical Stimulation Modalities Electrical Stimulation 54071 2010 [place] BRIGIDA L 15 min DoD Physical Therapy: ___ Se ion Segments, 15 Minutes Each Physical Therapy: ___ Session Segments, 15 Minutes Each 65476 2010 [place] BRIGIDA L 15 min DoD Modalities Cryotherapy Cold Packs Modalities Cryotherapy Cold Packs 29018 [facility] Electrical Stimulation Modalities Electrical Stimulation 16405 2010 [facility] Physical Therapy: ___ Se ion Segments, 15 Minutes Each Physical Therapy: ___ Session Segments, 15 Minutes Each 03842 2010 NICA PARRA [facility] Physical Medicine Physical Therapy Re-Evaluation Physical Medicine Physical Therapy Re-Evaluation 36271 2010 JESICA BRAVO [facility] Traction Pelvic Traction Pelvic 03832 2010 ROBYN BARAJAS [facility] Traction Pelvic Traction Pelvic 80609 2010 DELAROSA, BRIGIDA L 15 min DoD Traction Pelvic Traction Pelvic 82686 2010 YOUSIF PARRA, [facility] Traction Pelvic Traction Pelvic 30372 2010 YOUSIF PARRA, [facility] Traction Pelvic Traction Pelvic 14012 2010 YOUSIFSelma PARRA [facility] Traction Pelvic Traction Pelvic 84076 2010 ROBYN BARAJAS [facility] Physical Medicine Physical Therapy Re-Evaluation Physical Medicine Physical Therapy Re-Evaluation 31134 2010 JESICA BRAVO [facility] Modalities Traction Modalities Traction 55530 2010 STELLA STEPHENSON 15 min. [facility] Modalities Heat Hot Packs Modalities Heat Hot Packs 12159 2010 DELAROSA, BRIGIDA L 15 min [facility] Traction Pelvic Traction Pelvic 76237 2010 DELAROSA, BRIGIDA L 15 min [facility] Traction Pelvic Traction Pelvic 35203 2010 DELAROSA, BRIGIDA L 15 min DoD Modalities Heat Hot Packs Modalities Heat Hot Packs 82758 2010 DELAROSA, BRIGIDA L 15 min DoD Modalities Traction Modalities Traction 29788 2010 STELLA STEPHENSON 15 min [facility] Modalities Traction Modalities Traction 21095 2010 STELLA STEPHENSON 15 min. [facility] Physical Therapy Neuromuscular Re-education Physical Therapy Neuromuscular Re-education 67298 2010 ROBYN BARAJAS [facility] Physical Therapy: ___ Se ion Segments, 15 Minutes Each Physical Therapy: ___ Session Segments, 15 Minutes Each 05047 2010 ROBYN BARAJAS [facility] Physical Medicine Physical Therapy Re-Evaluation Physical Medicine Physical Therapy Re-Evaluation 10330 2010 JESICA BRAVO [facility] Psychometric Neuropsych Testing Battery Admin By Computer Psychometric Neuropsych Testing Battery Admin By Computer 66216 2010 JEANNIE CAREY [facility] Physical Therapy: ___ Se ion Segments, 15 Minutes Each Physical Therapy: ___ Session Segments, 15 Minutes Each 38724 2010 JESICA BRAVO [facility] Physical Medicine Physical Therapy Evaluation Physical Medicine Physical Therapy Evaluation 87756 2010 JESICA BRAVO [facility] Screening papanicolaou smear; obtaining, preparing and conveyance of cervical or vaginal smear to laboratory 2009 JADA ALONSO Screening papanicolaou smear; obtaining, preparing and conveyance of cervical or vaginal smear to laboratory 2008 JADA ALONSO Physical Therapy: ___ Se ion Segments, 15 Minutes Each Physical Therapy: ___ Session Segments, 15 Minutes Each 00886 2008 NANCIE MCCLOUD Physical Medicine Physical Therapy Evaluation Physical Medicine Physical Therapy Evaluation 10327 2008 NANCIE MCCLOUD [facility] Fitting Monofocals (Not For Aphakia) [facility] Fitting Monofocals (Not For Aphakia) 81568 2007 NAZ CONTE Determination Of Refractive State Determination Of Refractive State 77261 2007 NAZ CONTE Ophthalmological New Patient Start Comprehensive Care Ophthalmological New Patient Start Comprehensive Care 44734 2007 NAZ CONTE Obstetrical Services Care Visit Obstetrical Services Care Visit 0503F 2007 KATHLEEN AUGUSTE Layer Closure Of Wound Legs 2.6 to 7.5 cm Layer Closure Of Wound Legs 2.6 to 7.5 cm 81948 2007 NAZ WONG Excision Of Lesion Legs Benign 2.1 to 3cm Excision Of Lesion Legs Benign 2.1 to 3cm 55218 2007 NAZ WONG OB Services Antepartum Care Only Subsequent Single Visit OB Services Antepartum Care Only Subsequent Single Visit 0502F 2007 GERRI FRANKEL [facility] OB Services Antepartum Care Only Subsequent Single Visit OB Services Antepartum Care Only Subsequent Single Visit 0502F 2007 SHANNON CARTAGENA [facility] Non-Stre Test (___ 0,2) Non-Stress Test (___ 0,2) 62522 2007 SOSA SALOMON [facility] Colposcopy Colposcopy 83569 2006 ZAFAR KINNEY [facility] Screening papanicolaou smear; obtaining, preparing and conveyance of cervical or vaginal smear to laboratory 2006 ROSAMARIA VILLANUEVA [facility] Postoperative Visit, Without Charge Postoperative Visit, Without Charge 25765 2006 MILLA TEJADA Layer Closure Of Wound Legs .1 to 2.5 cm Layer Closure Of Wound Legs .1 to 2.5 cm 74778 2006 MILLA TEJADA Excision Of Lesion Legs Benign .6 to 1cm Excision Of Lesion Legs Benign .6 to 1cm 66210 2006 MILLA TEJADA Biopsy Skin Biopsy Skin [address]Supervised Specimen Handling / Transfer: Office To Lab -Supervised Specimen Handling / Transfer: Office To Lab 83692 2004 NATALEE VENTURA Cervical or vaginal cancer screening; pelvic and clinical breast examination 2004 NATALEE VENTURA Screening papanicolaou smear; obtaining, preparing and conveyance of cervical or vaginal smear to laboratory 2004 NATALEE VENTURA Social History Combined list of available smoking, tobacco, and other social history from [facility] and [facility] facilities. Social History Type Response Date Comment Sour e Tobacco smoking status NHIS LA-TOBACCO NEVER USED 03/30/2024 [facility] History of tobacco use LA-TOBACCO NEVER USED 04/12/2023 [facility] History of tobacco use LA-TOBACCO NEVER USED 04/27/2022 [facility] Sex Representation Female (finding) 08/01/2021 Unknown Organization Sexual Orientation [facility] Gender identity [facility] This section is an empty social history section. DoD Assessment and Plan Combined list of future care activities from [facility] of Defense and Veterans Affairs facilities (e.g., assessment and plan notes, appointments, orders, and referrals). Additional future care activities may be listed in the Plan of Care section. Result Assessment and Plan Date Source Assessment and Plan No data available for this section 03/12/2025 [facility] Plan of Care List of future care activities from [facility] of Veterans Affairs facilities. Additional future care activities may be listed in the Assessment and Plan section. Date/Time Care Activity Care Activity Detail Facili ty 03/29/2025 AMBULATORY - MEDICINE AMBULATORY - MEDICI [facility] Functional Status Combined list of recent functional and cognitive assessments recorded at [facility] Functional [place] Measurement (FIM) Scale: 1 = Total Assistance (Subject = 0% +), 2 = Maximal Assistance (Subject = 25% +), 3 = Moderate Assistance (Subject = 50% +), 4 = Minimal Assistance (Subject = 75% +), 5 = Supervision, 6 = Modified [place] (Device), 7 = Complete [place] (Timely, Safely). Assessment Date/Time Source Assessment Type Assessment Skill Assessment Score Assessment Details No data available for this section
--- OUTSIDE RECORDS SUMMARY | 2025-03-12 02:26 | XMS_ITS | Encounter Summary ---
Author Name Department of [facility] Affairs ([place]) Organization [facility] of [facility] ([place]) Address [address] [place] [id number] Care Team Providers Care Vocational Rehabilitation Technician Name Role Phone WILFRIDO GABY Primary Care Provider Unavailabl e Selected Encounter This section includes the information on record at [place] for the Encounter. Date/Time Encounter Type Encounter Description Reason Provider Source Aug 13, 2024 02:40 PM OFFICE O/P EST LOW 20 MIN PRIMARY CARE/MEDICINE ICD-10-CM N30.00 Acute cystitis without hematuria ELBA PALACIOS [facility] Encounter Template Text not used by [place] Assessments - Encounter Diagnoses This section includes the primary and secondary diagnoses documented for the Encounter. Date/Time Primary/Secondary Diagnosis Diagnosis Name Provider Source Aug 13, 2024 03:23 PM PRIMARY Acute cystitis without hematuria JAYDEN TORIBIO [facility] Aug 13, 2024 03:23 PM SECONDARY Personal history of urinary (tract) infections ELBA PALACIOS [facility] Aug 13, 2024 03:23 PM SECONDARY Stress incontinence (female) (male) ELBA PALACIOS [facility] Plan of Treatment: Future Appointments (+ 6 months) and Future Tests (+/- 45 days) The Plan of Treatment section includes future care activities for the patient from [facility] [place] [facility] This section includes future appointments and future orders which are active, pending or scheduled. Future Appointments This section includes appointments that were scheduled to occur 6 months from the date of the Encounter, up to a maximum of 20 appointments. The data comes from all [place] treatment facilities. Appointment Date/Time Appointment Type Appointme nt Facility Name Oct 14, 2024 11:00 AM AMBULATORY - NONE [facility] Dec 25, 2024 08:20 AM AMBULATORY - MEDICINE [facility] Jan 05, 2025 07:30 AM AMBULATORY - SURGERY [facility] Kasi [facility] Jan 20, 2025 02:30 PM AMBULATORY - SURGERY [facility] Kasi [facility] Vital Signs: All taken on the encounter date This section contains inpatient and outpatient Vital Signs collected on the date of the Encounter. Date/Time Temperature Pulse Blood Pressure Respiratory Rate SP02 Pain Height Weight Body Mass Index Source Aug 13, 2024 02:43 PM 97.9 71 143/84 18 100 1 132.5 21 [facility] Social History: Smoking Status (Most current) and Tobacco Use (All prior to encounter date) This section includes the most current, and the historical, smoking and tobacco- related health factors from the [place] facility where the Encounter took place. Current Smoking Status This section includes the most current smoking, or tobacco-related health factor, from the [place] facility where the Encounter took place. Date/Time Current Smoking Status Comment Dionisio arredondo Mar 30, 2024 11:30 AM [facility] Tobacco Use History This section includes a history of the smoking, or tobacco-related health factors, that were collected on or before the date of the Encounter. The data comes from the [place] facility where the Encounter took place. Date/Time Smoking Status/Tobacco Use Comment F acmonica Apr 12, 2023 02:30 PM [facility] Apr 27, 2022 11:00 AM [facility] Pathology Reports: +/- 30 days of the encounter Pathology Reports For cases when an order for pathology services may have been completed prior to the date of the Encounter, the report list includes the Pathology Reports that were completed up to 30 days before dateof the Encounter. For cases when an order for pathology services may have been completed after the date of the Encounter, the report list also includes the Pathology Reports that were completed up to30 days after date of the Encounter. The data comes from all [place] treatment facilities. Date/Time Pathology Report Provider Source Aug 13, 2024 03:15 PM LR MICROBIOLOGY RE PORT: Accession [UID]: [facility] 24 [id number] [[id number]] Received: Aug 13, 2024@15:24 Collection sample: URINE,CLEAN CATCH Collection date: Aug 13, 2024 15:15 Site/Specimen: URINE Provider: JAYDEN TORIBIO Test(s) ordered: C&S URINE..................... completed: Aug 14, 2024 20:14 * BACTERIOLOGY FINAL REPORT => Aug 14, 2024 20:18 TECH CODE: [id number] Bacteriology Remark(s): MIRZA 08/14/24 >10,000 - <25,000 CFU/ML MIXED ORGANISMS There will be no work up. =--=--=--=--=--=--=--=--=--= --=--=--=--=--=--=--=--=--=- -=--=--=--=--=--=--=-- Performing Laboratory: Bacteriology Report Performed By: [facility] [address] [place], [place] [address]IA# [id number] [address] [id number] [address] [facility] Encounter Notes: All associated encounter notes This section contains the clinical notes associated to the Encounter. Date/Time Encounter Note(s) Provider Source Aug 13, 2024 03:24 PM PRIMARY CARE NOTE: LOCAL TITLE: PRIMARY CARE PROVIDER ESTABLISHED VISIT [facility] STANDARD TITLE: PRIMARY CARE NOTE DATE OF NOTE: AUG 13, 2024@15:24 ENTRY DATE: AUG 13, 2024@15:24:35 AUTHOR: JAYDEN TORIBIO EXP COSIGNER: ELBA PALACIOS URGENCY: STATUS: COMPLETED PRIMARY CARE PROVIDER ESTABLISHED VISIT [facility] Has [facility] WALK[facility] NOTE DATE: AUG 13, 2024 15:24 HPI: Patient is a 49 yo female w. PMHx stress incontinence and recurrent UTIs (2-3 per year) who presents to walk-in clinic for recurrent UTI symptoms for the past week. She was seen at urgent care 2 weeks ago for UTI symptoms and was prescribed macrobid x 5 days. She finished her abx course but has still noted urinary frequency and a pressure-like sensation in her bladder. No fevers, chills, flank pain, abdominal pain, dysuria or hematuria. She notes a history of stress incontinence s/p hysterectomy in 2018 that she has been seeing gynocology. She has since been using pessaries and pelvic floor therapy. Patient notes that her recent symptoms are different than what she has experienced with stress incontinence. MEDICAL HISTORY: 1) Thoracic outlet syndrome 2) Vitamin D deficiency 3) Basal cell carcinoma - primary 4) Female stress incontinence 5) Chronic low back pain ACTIVE OUTPATIENT MEDS: Active Outpatient Medications (including Supplies): Active Outpatient Medications Status 1) CHOLECALCIF 25MCG (D3-1,000UNIT) TAB TAKE ONE TABLET ACTIVE BY MOUTH ONCE A DAY FOR VITAMIN D DEFICIENCY 2) LIDOCAINE 5% OINT APPLY LIGHTLY TO AFFECTED AREA(S) ACTIVE THREE TIMES A DAY NEEDED FOR PAIN 3) MULTIVITAMIN CAP/TAB TAKE 1 TABLET BY MOUTH ONCE A ACTIVE DAY FOR NUTRITION/DIETARY SUPPLEMENTATION 4) SULFAMETHOXAZOLE 800/TRIMETH 160MG TAB TAKE 1 TABLET ACTIVE BY MOUTH EVERY 12 HOURS FOR URINARY TRACT INFECTION TAKE WITH WATER/AVOID SUNLIGHT. 5) VALACYCLOVIR HCL 500MG TAB TAKE ONE TABLET BY MOUTH ACTIVE ONCE A DAY FOR VIRAL INFECTION PREVENTION REVIEW OF SYSTEMS: Negative except where noted above in HPI. Vital Signs: Pulse: 71 (08/13/2024 14:43) BP: 143/84 (08/13/2024 14:43) RESP: 18 (08/13/2024 14:43) Pain: 1 (08/13/2024 14:43) Weight: 132.5 lb [60.10 kg] (08/13/2024 14:43) PHYSICAL EXAM: General: cooperative, well appearing, no acute distress HEENT: atraumatic, symmetric, sclera anicteric, no pharyngeal erythema/exudate Neck: no JVD, no LAD CV: RRR, normal S1/S2, no murmurs Lungs: CTAB, no rales Abd: nontender, nondistended, normal bowel sounds MSK: No flank tenderness Skin: no rashes or lesions, warm, dry Neuro: follows commands, no focal deficits, CN II-XII grossly intact LAB DATA: SODIUM 138 mEq/L 03/30/2024 12:09 POTASSIUM 4.0 mEq/L 03/30/2024 12:09 CHLORIDE 104 mEq/L 03/30/2024 12:09 UREA NITROGEN 16.3 mg/dL 03/30/2024 12:09 CREATININE 0.87 mg/dL 03/30/2024 12:09 CALCIUM 9.2 mg/dL 03/30/2024 12:09 PROTEIN 7.3 g/dL 03/30/2024 12:09 ALBUMIN 4.4 g/dL 03/30/2024 12:09 ALKALINE PHOSPHATASE 64 U/L 03/30/2024 12:09 ALT/SGPT 11 U/L 03/30/2024 12:09 AST/SGOT 20 U/L 03/30/2024 12:09 TOTAL BILIRUBIN 0.4 mg/dL 03/30/2024 12:09 CARBON DIOXIDE 26 mEq/L 03/30/2024 12:09 GLUCOSE 99 mg/dL 03/30/2024 12:09 EGFR (CKD-EPI 2020) 82.6 03/30/2024 12:09 WBC 6.5 10*3/uL 03/30/2024 12:09 RBC 5.00 10*6/uL 03/30/2024 12:09 HGB 14.4 g/dL 03/30/2024 12:09 HCT 43.2 % 03/30/2024 12:09 MCV 86.4 fL 03/30/2024 12:09 MCH 28.8 pg 03/30/2024 12:09 MCHC 33.3 g/dL 03/30/2024 12:09 RDW 13.2 % 03/30/2024 12:09 PLT 347 10*3/uL 03/30/2024 12:09 MPV 10.1 fL 03/30/2024 12:09 NEUTROPHILS, AUTO % 60 % 03/30/2024 12:09 LYMPHOCYTES, AUTO % 32 % 03/30/2024 12:09 MONOCYTES, AUTO % 7 % 03/30/2024 12:09 EOSINOPHILS, AUTO % 1 % 03/30/2024 12:09 BASOPHILS, AUTO % 1 % 03/30/2024 12:09 NEUTROPHILS, ABSOLUTE 3.90 10*3/uL 03/30/2024 12:09 LYMPHOCYTES, ABSOLUTE 2.08 10*3/uL 03/30/2024 12:09 MONOCYTES, ABSOLUTE 0.44 10*3/uL 03/30/2024 12:09 EOSINOPHILS, ABSOLUTE 0.04 10*3/uL 03/30/2024 12:09 BASOPHILS, ABSOLUTE 0.03 10*3/uL 03/30/2024 12:09 IMPRESSION/PLAN: Patient is a 49 yo female with pmhx of urinary stress incontinence and recurrent history of UTIs. She recently finished 5 day course of macrobid for UTI symptoms that have since recurred. She has no systemic symptoms and no flank pain. Given patient's recurrent history of cystitis and persistent symptoms despite abx tx, 10 day course of bactrim has been prescribed and patient will have urine culture ordered to rule out atypical causes and test sensitivity. #. Uncomplicated Cystitis . History multiple UTIs in past . Recent tx with Macrobid. Persistent urinary frequency . No systemic symptoms or flank pain . 10 day course of bactrim . Urine culture and sensitivities ordered Patient seen and discussed with Dr. Suzanne Toribio MD PGY-1 AUG 13, 2024 15:24 /es/ JAYDEN TORIBIO Signed: 08/13/2024 15:34 /es/ ELBA PALACIOS MD Cosigned: 08/16/2024 19:17 08/16/2024 ADDENDUM STATUS: COMPLETED Alfonso Angulo is a 49 yo presenting with complaint of recurrent UTI, not responding to treatment prescribed at an outside Urgent Care Center. Patient seen and evaluated along with Dr. Jayden Mauricio. See his note for the interval history, which is confirmed with the patient. Medications, and how the patient is taking them are reviewed. Recent diagnostics as well as past medical and procedural histories are reviewed with Dr Mauricio, and with the patient as per the presenting complaint. On my exam, the vital signs are normal. The patient is oriented. memory and judgment are intact. She describes her therapies for incontinence, pessaries, and history of recurrent UTI's. No clear trigger this event. Poor response to macrobid. The balance of the exam is per Dr. Mauricio. Agree with the working diagnoses of Cystitis, not responding to macrobid. History of recurrent UTI's. Agree w Dr. Mauricio's plan for diagnosis and treatment. We spent 24 minutes in the evaluation, diagnosis, and treatment planning for this patient. Follow up with Gynecology as scheduled. PCP as indicated. Elba Palacios M.D. /burak/ ELBA PALACIOS MD Signed: 08/16/2024 19:24 JAYDEN TORIBIO [facility] Aug 13, 2024 02:45 PM NURSING NOTE: LOCAL TITLE: V15 PACT FACE TO FACE NOTE STL STANDARD TITLE: NURSING NOTE DATE OF NOTE: AUG 13, 2024@14:45 ENTRY DATE: AUG 13, 2024@14:45:17 AUTHOR: WALESKA MURRIETA EXP COSIGNER: URGENCY: STATUS: COMPLETED Provider Visit: Patient Identifiers : Full Name Date of Reason for visit: Other: [place] think she has a possible bladder infection or UTI. did take Macrobid two weeks ago. Mode of Arrival: Ambulatory Allergy Review: PENICILLIN Allergy list reviewed and remains current. Recent Vital Signs: Temperature: 97.9 F [36.6 C] (08/13/2024 14:43) Pulse: 71 (08/13/2024 14:43) Respiration: 18 (08/13/2024 14:43) B/P: 143/84 (08/13/2024 14:43) Pain: 1 (08/13/2024 14:43) Wt: 132.5 lb [60.10 kg] (08/13/2024 14:43) Ht: 67 in [170.2 cm] (03/30/2024 11:36) BMI: 20.8 POX: 100% (08/13/2024 14:43) Would you like to discuss any personal problem, family problem, alcohol use, drug use, or a mental or emotional illness? No [facility] ([facility]), please select appointment type: Face to face: No- Are you interested in getting this done? No Contact provided Primary Care phone number and encouraged to call if any questions or concerns. Review that after hours nurse line [phone] and emergency room are available 22/04 for patient use. Contact verbalized good understanding. /burak/ WALESKA MURRIETA LPN LICENSED PRACTICAL NURSE Signed: 08/13/2024 14:48 WALESKA MURRIETA [facility]
--- OUTSIDE RECORDS SUMMARY | 2025-03-12 02:26 | XMS_ITS | Encounter Summary ---
Author Name [facility] [place] Organization [facility] ([place]) Address [address] [place] [id number] Care Team Providers Care Lead Data Entry Operator Name Role Phone GISELLE ANNA Primary Care Provider Unavailabl e Selected Encounter This section includes the information on record at [place] for the Encounter. Date/Time Encounter Type Encounter Description Reason Provider Source Apr 06, 2024 02:30 PM OFFICE O/P EST LOW 20 MIN DERMATOLOGY ICD-10-CM L73.9 Follicular disorder, unspecified DMITRIY COLEY Encounter Template Text not used by [place] Assessments - Encounter Diagnoses This section includes the primary and secondary diagnoses documented for the Encounter. Date/Time Primary/Secondary Diagnosis Diagnosis Name Provider Source Apr 06, 2024 04:07 PM PRIMARY Follicular disorder, unspecified [facility] Apr 06, 2024 04:07 PM SECONDARY Neoplasm of uncertain behavior of skin [facility] Apr 06, 2024 04:07 PM SECONDARY Personal history of other malignant neoplasm of skin [facility] Apr 06, 2024 04:07 PM SECONDARY Poikiloderma of Civatte [facility] Plan of Treatment: Future Appointments (+ 6 months) and Future Tests (+/- 45 days) The Plan of Treatment section includes future care activities for the patient from all [place] treatmentfacilities. This section includes future appointments and future orders which are active, pending or scheduled. Future Appointments This section includes appointments that were scheduled to occur 6 months from the date of the Encounter, up to a maximum of 20 appointments. The data comes from all [place] treatment facilities. Appointment Date/Time Appointment Type Appointme nt Facility Name Apr 10, 2024 07:30 AM AMBULATORY - NONE [facility] Mackenzie [facility] Jul 08, 2024 09:00 AM AMBULATORY - SURGERY [facility] Aug 13, 2024 02:40 PM AMBULATORY - MEDICINE [facility] Lab Results: +/- 30 days of the encounter This section includes the Chemistry and Hematology Lab Results on record with [place] for the patient. Radiology Reports and Pathology Reports are provided separately, in subsequent sections. Lab Results This section contains the Chemistry/Hematology Results that were resulted 30 days before or 30 daysafter the date of the Encounter. Date/Time Source Result Type Result - Unit Interpretation Reference Range Specimen Type Comment Mar 30, 2024 12:09 PM [facility] VITAMIN D, 25-HYDROXY SERUM Specimen Type: SERUM No comment entered. Ordering Provider: GISELLE ANNA Report Released Date/Time: Mar 30, 2024 11:51 AM Reporting Lab: [address] [address] Performing Lab: [address] [address] VITAMIN D, 25-HYDROXY 57.2 ng/mL 30-96 Mar 30, 2024 12:09 PM [facility] CBC BLOOD Specimen Type: BLOOD No comment entered. Ordering Provider: GISELLE ANNA Report Released Date/Time: Mar 30, 2024 11:51 AM Reporting Lab: [address] [address] Performing Lab: [address] [address] WBC 6.5 10*3/uL 3.6-11.2 RBC 5.00 10*6/uL 3.60-5.00 HGB 14.4 g/dL 11.0-14.9 HCT 43.2 32.6-43.4 MCV 86.4 fL 80.0-100.0 MCH 28.8 pg 27.0-34.0 MCHC 33.3 g/dL 33.0-36.0 PLT 347 10*3/uL 150-400 MPV 10.1 fL 7.5-11.2 RDW 13.2 11.8-15.1 LYMPHOCYTES, AUTO % 32 MONOCYTES, AUTO % 7 NEUTROPHILS, AUTO % 60 EOSINOPHILS, AUTO % 1 BASOPHILS, AUTO % 1 LYMPHOCYTES, ABSOLUTE 2.08 10*3/uL 0.77- 4.50 MONOCYTES, ABSOLUTE 0.44 10*3/uL 0.19-0. 80 NEUTROPHILS, ABSOLUTE 3.90 10*3/uL 2.10- 8.00 EOSINOPHILS, ABSOLUTE 0.04 10*3/uL 0.00- 0.60 BASOPHILS, ABSOLUTE 0.03 10*3/uL 0.00-0. 20 Mar 30, 2024 12:09 PM [facility] COMPREHENSIVE METABOLIC PANEL PLASMA Specimen Type: PLASMA Comment: No hemolysis noted. Ordering Provider: GISELLE ANNA Report Released Date/Time: Mar 30, 2024 11:51 AM Reporting Lab: [address] [address] Performing Lab: [address] [address] CREATININE 0.87 mg/dL 0.6-1.1 UREA NITROGEN 16.3 mg/dL 9.0-25.0 GLUCOSE 99 mg/dL 72-99 SODIUM 138 meq/L 136-145 POTASSIUM 4.0 meq/L 3.5-5 CHLORIDE 104 meq/L 98-107 CARBON DIOXIDE 26 meq/L 22-31 CALCIUM 9.2 mg/dL 8.4-10.4 PROTEIN 7.3 g/dL 6-8.6 ALBUMIN 4.4 g/dL 3.4-5 TOTAL BILIRUBIN 0.4 mg/dL 0.2-1.2 ALKALINE PHOSPHATASE 64 U/L 40-150 AST/SGOT 20 U/L 5-34 ALT/SGPT 11 U/L 8-40 EGFR (CKD-EPI 2020) 82.6 >60 Mar 30, 2024 12:09 PM [facility] LIPID PANEL (STL) PLASMA Specimen Type: PLASM A Comment: No hemolysis noted. Ordering Provider: GISELLE ANNA Report Released Date/Time: Mar 30, 2024 11:51 AM Reporting Lab: [address] [address] Performing Lab: [address] [place] [address] CHOLESTEROL 191 mg/dL 0-200 TRIGLYCERIDE 97 mg/dL 0-150 CALCULATED LDL 114 mg/dL HDL(New) 58 mg/dL >40 Mar 30, 2024 12:09 PM [facility] HGA1C BLOOD Specimen Type: BLOOD No comment entered. Ordering Provider: GISELLE ANNA Report Released Date/Time: Mar 30, 2024 11:51 AM Reporting Lab: [address] [address] Performing Lab: [address] [address] HGA1C 5.4 4.0-6.0 Mar 30, 2024 12:09 PM [facility] TSH W/ REFLEX FT4 (STL) PLASMA Specimen Type: PLASMA No comment entered. Ordering Provider: GISELLE ANNA Report Released Date/Time: Mar 30, 2024 11:52 AM Reporting Lab: [place] [address] [facility] [address] Performing Lab: [address] [address] TSH 1.603 u[IU]/mL 0.47-5 Radiology Reports: +/- 30 days of the [...] the Encounter. The data comes from all [facility] facilities. Date/Time Radiology Report Provider Source Mar 30, 2024 12:15 PM SPINE LUMBOSACRAL 2 OR 3 VIEWS: ALFONSO ANGULO [id number] -[id number] F Exm Date: MAR 30, 2024@12:15 Req Phys: GISELLE ANNA Pat Loc: HELDER-PACT C6 PCP (Req'g Loc) Img Loc: -MAIN RADIOLOGY SUITE Service: Unknown Screen: Patient answered no [facility], [address] [place] [address] (Case [id number] COMPLETE) SPINE LUMBOSACRAL 2 OR 3 VIEWS (RAD Detailed) CPT:85350 Reason for Study: LOW BACK PAIN DDD Clinical History: Report Status: Verified Date Reported: MAR 30, 2024 Date Verified: MAR 30, 2024 Floorworker Distributor E-Sig:/ES/Maye Rico MD. FACR. Report: History: LOW BACK PAIN DDD. Comparison: No previous pertinent examination is available. Technique: AP, lateral and lumbosacral spot films Findings: There are 5 nonrib-bearing lumbar segments. No fracture, dislocation or pedicle destruction is seen. Straightening and mild reversal of the lumbar curve is noted on the lateral projection. Minimal anterior spurring is noted from L2 through L5. No marked disc space narrowing is seen. Impression: Straightening of the lumbar curve. Small spurs. Primary Interpreting Staff: Maye Rico MD. FACR, Neuroradiologist (Floorworker Distributor) /MAYE MAGDALENO [facility] Pathology Reports: +/- 30 days of the [...] the Encounter. The data comes from all [place] treatment facilities. Date/Time Pathology Report Provider Source Apr 09, 2024 04:00 PM LR SURGICAL PATHOL OGY REPORT: LOCAL TITLE: LR SURGICAL PATHOLOGY REPORT STANDARD TITLE: PATHOLOGY PROCEDURE NOTE DATE OF NOTE: APR 09, 2024@16:00:33 ENTRY DATE: APR 09, 2024@16:00:33 AUTHOR: GRAHAM PULIDO EXP COSIGNER: URGENCY: STATUS: COMPLETED $APHDR - - - - - - - - - - - - - - - - - - - - - - - - - - - - - - - - - - - - - - - - MEDICAL RECORD SURGICAL PATHOLOGY - - - - - - - - - - - - - - - - - - - - - - - - - - - - - - - - - - - - - - - - PATHOLOGY REPORT Accession No. SP [id number] - - - - - - - - - - - - - - - - - - - - - - - - - - - - - - - - - - - - - - - - $TEXT Submitted by: ABRAN BERNABE Date obtained: Apr 06, 2024 - - - - - - - - - - - - - - - - - - - - - - - - - - - - - - - - - - - - - - - - Specimen (Received Apr 07, 2024 09:20): A. LEFT 3 DIGIT ON HAND - - - - - - - - - - - - - - - - - - - - - - - - - - - - - - - - - - - - - - - - BRIEF CLINICAL HISTORY: Red papule on left finger, r/o [employer] - - - - - - - - - - - - - - - - - - - - - - - - - - - - - - - - - - - - - - - - PREOPERATIVE DIAGNOSIS: - - - - - - - - - - - - - - - - - - - - - - - - - - - - - - - - - - - - - - - - OPERATIVE FINDINGS: - - - - - - - - - - - - - - - - - - - - - - - - - - - - - - - - - - - - - - - - POSTOPERATIVE DIAGNOSIS: Surgeon/physician: DMITRIY COLEY MD =-=-=-=-=-=-=-=-=-=-=-=- =-=-=-=-=-=-=-=-=-=-=-=- =-=-=-=-=-=-=-=-=-=-=-=- =-=-=-= - - - - - - - - - - - - - - - - - - - - - - - - - - - - - - - - - - - - - - - - PATHOLOGY REPORT Accession No. SP [id number] - - - - - - - - - - - - - - - - - - - - - - - - - - - - - - - - - - - - - - - - GROSS DESCRIPTION: Lindsay Nava, 04/07/24 Received in formalin in a container labeled with the patient's full name, SSN, and Left 3rd Digit is an irregular, pale-roblero skin shave biopsy measuring 0.5 x 0.5 x 0.1cm. The resection margin is inked, and the tissue is bisected and submitted entirely in A1. MICROSCOPIC EXAM: (Deshaun) Microscopic examination of the sections submitted from 3rd digit of hand shows a microscopic focus of angioma. Serial levels are examined. DIAGNOSIS: SKIN, 3RD DIGIT OF HAND, SHAVE BIOPSY: ANGIOMA /burak/ GRAHAM PULIDO Pathologist Signed Apr 09, 2024@16:00 Performing Laboratory: Surgical Pathology Report [facility] By: [facility] [address] [place] [address] CLIA# [id number] [address] [address] $FTR - - - - - - - - - - - - - - - - - - - - - - - - - - - - - - - - - - - - - - - - (End of report) GRAHAM PULIDO MD [facility] Date Apr 09, 2024 - - - - - - - - - - - - - - - - - - - - - - - - - - - - - - - - - - - - - - - - ALFONSO ANGULO STANDARD FORM 515 ID:[id number] SEX:F :1975 AGE: 49 LOC:DERMCL PCP: Giselle Anna MD /burak/ GRAHAM PULIDO Pathologist Signed: 04/09/2024 16:00 GRAHAM PULIDO [facility] Encounter Notes: All associated encounter notes This section contains the clinical notes associated to the Encounter. Date/Time Encounter Note(s) Provider Source Apr 10, 2024 09:07 AM INTERNAL MEDICINE NOTE: LOCAL TITLE: BIOPSY FOLLOW UP ST STANDARD TITLE: INTERNAL MEDICINE NOTE DATE OF NOTE: APR 10, 2024@09:07 ENTRY DATE: APR 10, 2024@09:07:28 AUTHOR: ABRAN BERNABE EXP COSIGNER: LA RICHARDS URGENCY: STATUS: COMPLETED Communicated biopsy results with patient on: Mar Communicated results via: Phone Results: DIAGNOSIS: SKIN, 3RD DIGIT OF HAND, SHAVE BIOPSY: ANGIOMA Positive Cancer Diagnosis: NO Treatment Plan: - Called patient to discuss results of shave biopsy taken on left 3rd digit - This is a benign lesion - Will NOT require further action. - Patient verbalized understanding. All questions answered. /es/ Abran Bernabe MD Home Security Professional Signed: 04/10/2024 09:16 /es/ LA RICHARDS MD Dermatology Attending Physician Cosigned: 04/14/2024 09:07 Receipt Acknowledged By: 04/15/2024 18:31 /burak/ DMITRIY COLEY MD DERMATOLOGY & DERMATOPATHOLOGY ABRAN BERNABE [facility] Apr 06, 2024 02:17 PM DERMATOLOGY CONSULT: LOCAL TITLE: DERMATOLOGY CONSULT [facility] STANDARD TITLE: DERMATOLOGY CONSULT DATE OF NOTE: APR 06, 2024@14:17 ENTRY DATE: APR 06, 2024@14:17:30 AUTHOR: ABRAN BERNABE EXP COSIGNER: DMITRIY COLEY URGENCY: STATUS: COMPLETED DERMATOLOGY CONSULT ST Has ADDENDA ALFONSO ANGULO is a 47 year old WHITE FEMALE with a hx of BCC on collarbone ~2010 s/p excision (outside diagnosis and treatment) Presenting for FBSE. Today, patient notes: - Hx of BCC many years ago - Hx folliculitis, occasionally flares up, uses clindamycin - left middle finger spot --------- OBJECTIVE --------- Physical Examination - Multiple roblero homogenous macules on the dorsal arms, upper shoulders - Mild flaking throughout scalp - WHSS on right collar bone, NER Otherwise: General Appearance: Well Appearing FEMALE, NAD Mood/Affect: pleasant/appropriate Face: WNL Ears: WNL Nose: WNL Forehead: WNL Scalp, Hair: WNL Neck: WNL Chest: WNL Abd: WNL Back: WNL Upper Extremities: WNL Lower Extremities: WNL Nails/Hair: WNL ASSESSMENT AND PLAN Neoplasm of uncertain behavior -Shave biopsy PROCEDURE NOTE Shave Biopsy(ies) Surgeon(s): Abran Bernabe Site(s): Left 3rd digit Clinical Ddx: r/o [facility] Verbal consent obtained. Reviewed risks including bleeding, infection, scar, need for additional procedures. Location confirmed with patient. Time out performed to confirm patient identity, procedure, and site. Prep: Chloroprep or isopropanol Anesthesia 1% lidocaine with epi, 3 cc Shave biopsy performed using scalpel or flexible surgical blade. Specimen placed in formalin and sent for routine pathologic review. EBL: minimal Complications: none Written wound care instructions provided and reviewed. Dermatology clinic phone number and 24 hour emergency after hours phone number provided. 1.Poikiloderma of civatte - Benign, reassurance - Photoprotection 2. Hx of folliculitis - Not active today - Continue clindamycin solution daily as needed to AA scalp. 3. Hx of NMSC - Well healed surgical scars as noted above - No evidence of repigment or recurrence - Instructed to return to clinic for any new or worsening lesions - Regular MD checks - Daily photoprotection recommended RTC in 6 mo /guillermo Bernabe MD Home Security Professional Signed: 04/06/2024 16:08 /burak/ DMITRIY COLEY MD DERMATOLOGY & DERMATOPATHOLOGY Cosigned: 04/07/2024 10:10 04/07/2024 ADDENDUM STATUS: COMPLETED I interviewed and examined the patient and discussed the case with the resident. I was immediately available during entire visit and any procedure(s). I agree with documented history, physical examination, assessment and plan. /guillermo COLEY MD DERMATOLOGY & DERMATOPATHOLOGY Signed: 04/07/2024 10:10 ABRAN BERNABE [facility]
--- OUTSIDE RECORDS SUMMARY | 2025-03-12 02:26 | XMS_ITS | Encounter Summary ---
Author Organization [facility] Healthcare Address [address] [place] [address] Care Team Providers Care Cooking Casing And Drying Supervisor Name Role Phone Amanuel Millard Primary Care Provider Jose Luis Weber MD Unavailable [phone] Encounter Details Date Type Department Care Team (Late st Contact Info) Description 03/20/2021 Telephone [facility] the [place] [facility] [address] [facility] [address] [place] [address] Carli Nickerson MD PhD [address] [place] [address] Social History Tobacco Use Types Packs/Day Years Used Date Smoking Tobacco: Never Smokeless Tobacco: Never Alcohol Use Standard Drinks/Week Comments Yes 0 (1 standard drink = 0.6 oz pur e alcohol) few drinks a month AUDIT-C Answer Date Recorded Q1: How often do you have a drink containing alc ohol? Patient declined 11/23/2020 Q2: How many drinks containi ng alcohol do you have on a typical day when you are drinking? Patient declined 11/23/2020 Q3: How often do you have si x or more drinks on one occasion? 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 Gender Identity Not on file Sexual Orientation Not on file Occupation Industry Job Start Date Job End Date [employer] Not on file Not on file Not on file documented as of this encounter Plan of Treatment Not on file documented as of this encounter Visit Diagnoses Not on filedocumented in this encounter Care Teams Cooking Casing And Drying Supervisor Relationship Specialty Start Date End Date Amanuel Millard PA PCP - General Physician Property Appraiser 04/12/20 Jose Luis Weber MD [id number] [place] [address] Referring Physician Vascular Surgery 02/09/22 documented as of this encounter
--- OUTSIDE RECORDS SUMMARY | 2025-03-12 02:26 | XMS_ITS | Encounter Summary ---
Author Organization [facility] Healthcare Address [address] [place] [address] Care Team Providers Care Application Specialist Name Role Phone Amanuel Millard Primary Care Provider Jose Luis Weber MD Unavailable [phone] Encounter Details Date Type Department Care Team (Late st Contact Info) Description 04/11/2021 Telephone [facility] at the [place] [facility] [address] [facility] [address] [place] [address] Carli Nickerson MD PhD [address] [place] [address] Social History Tobacco Use Types Packs/Day Years Used Date Smoking Tobacco: Never Smokeless Tobacco: Never Alcohol Use Standard Drinks/Week Comments Yes 0 (1 standard drink = 0.6 oz pur e alcohol) few drinks a month AUDIT-C Answer Date Recorded Q1: How often do you have a drink containing alc ohol? Never 04/10/2021 Q2: How many drinks containi ng alcohol do you have on a typical day when you are drinking? Patient declined 04/10/2021 Q3: How often do you have si x or more drinks on one occasion? 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 Author CCM Chronic Pain Care Plan Chronic Care Management Improving( 3:21 PM PRESS TECHNICIAN) Edwin Blanco RN Note: Problem: Chronic Pain Goals: 1. Minimize further functional decline 2. Maximize quality of life 3. Control pain Strategies: - Activity/exercise program recommendation - Conservative stepwise pain medicine strategy with multi-disciplinary approach - Recommend healthy lifestyle strategies and compensatory methods as needed documented as of this encounter Visit Diagnoses Not on filedocumented in this encounter Care Teams Application Specialist Relationship Specialty Start Date End Date Amanuel Millard PA PCP - General Physician Monogram Maker 04/12/20 Jose Luis Weber MD [id number] [place] [address] Referring Physician Vascular Surgery 02/09/22 documented as of this encounter
--- OUTSIDE RECORDS SUMMARY | 2025-03-12 02:26 | XMS_ITS | Clinical Summary ---
Author Organization [facility] Address [address] [place] [address] Care Team Providers Care Assistant Infant Teacher Name Role Phone Amanuel Millard Primary Care Provider Jose Luis Weber MD Unavailable [phone] Allergies Active Allergy Reactions Criticality Noted Date Comments Penicillin V Hives Medium 04/29/2018 Medications traZODone (DESYREL) 100 mg tabletIndications: sleep 100 mg daily as needed 02/29/20 21 Active cholecalciferol (VITAMIN D-3) 5,000 unit capsuleIndications :Vitamin D Deficiency Take 5,000 Units by mouth every morning 05/09/20 21 Active clindamycin (CLEOCIN T) 1 % external solutionIndication s:scalp Apply 1 application topically as needed 07/14/20 21 Active clobetasoL (OLUX) 0.05 % topical foamIndications:sc alp Apply 1 application topically as needed 07/14/20 21 Active clotrimazole 1 % creamIndications:s calp 1 application as needed 07/19/20 21 Active selenium sulfide 2.5 % lotionIndications: scalp 1 application as needed 07/14/20 21 Active tacrolimus (PROTOPIC) 0.1 % ointmentIndication s:scalp 1 application as needed 07/14/20 21 Active gabapentin (NEURONTIN) 600 mg tabletIndications: Neuropathic Pain Take 1 tablet (600 mg total) by mouth 3 (three) times a day 90 tablet 3 10/30/19 22 Active Additional Information Patient taking differently:600 mg oral2 times daily, Indications: Neuropathic Pain, Reported on 03/01/2022 valACYclovir (VALTREX) 500 mg tabletIndications: outbreak Take 500 mg by mouth as needed 12/02/19 Active acetaminophen 500 mg capsuleIndications :Fever,Pain Take 2 capsules (1,000 mg total) by mouth every 6 (six) hours 30 tablet 02/10/20 Active ibuprofen (ADVIL,MOTRIN) 600 mg tabletIndications: Anti-inflammatory Take 1 tablet (600 mg total) by mouth every 6 (six) hours 120 tablet 02/10/20 Active methocarbamoL (ROBAXIN) 500 mg tabletIndications: Muscle Relaxation Take 1 tablet (500 mg total) by mouth every 8 (eight) hours 90 tablet 02/10/20 Active Additional Information Patient not taking.Reported on 03/01/2022 camphor-menthoL (SARNA) lotionIndications: Pruritus of Skin Apply topically every 2 (two) hours as needed for itching or dry skin 222 mL 02/10/20 Active cyclobenzaprine (FLEXERIL) 5 mg tablet Take 1 tablet (5 mg total) by mouth 3 (three) times a day as needed for muscle spasms 30 tablet 02/10/20 Active Additional Information Patient not taking.Reported on 03/01/2022 lidocaine (LIDODERM) 5 % Place 2 patches on the skin daily Remove & discard patch within 12 hours or as directed by MD. 30 patch 02/11/20 Active ondansetron ODT (ZOFRAN-ODT) 4 mg disintegrating tablet Take 1 tablet (4 mg total) by mouth every 4 (four) hours as needed for nausea 20 tablet 02/10/20 Active senna-docusate (PERICOLACE) 8.6-50 mgIndications:cons tipation Take 1 tablet by mouth 2 (two) times a day 30 tablet 02/10/20 Active Active Problems Problem Noted Date Diagnosed Date Neurogenic thoracic outlet syndrome 01/09/2022 Overview (01/09/2022): Added automatically from request for surgery [id number] Assessment & Plan (02/08/2022 7:47 AM CDT): - S/p OR on 02/05/2022 for left neurogenic thoracic outlet decompression - 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 Continue oxycodone, acetaminophen, ibuprofen, and methocarbamol POD1. Add flexeril PRN and lidoderm patches. - DC duran POD1. - serial CXR to monitor for drain placement and evaluate for pleural effusions/pneumothorax. - Chest drain to RUSSELL drain bulb. - RUSSELL drain output monitoring and care. - 20 g fat diet - PT beginning POD 1 - Nutrition consult for 20g fat diet instructions Cervical disc disorder with radiculopathy of mid-cervical region 05/18/2020 Overview (05/18/2020): Added automatically from request for surgery [id number] Cubital tunnel syndrome on left 05/11/2020 Overview (05/11/2020): Added automatically from request for surgery [id number] Immunizations Immunization Administration Dates Next Due Influenza, Unspecified 08/11/2020 Moderna SARS-CoV-2 Monovalent Vaccination (12+ Y RS) 11/28/2020,10/31/2020 Surgical History Surgery Date Site/Laterality Comments HYSTERECTOMY 09/30/2017 - 09/29/2018 BASAL CELL CARCINOMA EXCISION Right clavicle ULNAR TUNNEL RELEASE US ABDOMEN COMPLETE W LIVER DOPPLER (C) 04/07/2018 Right CERVICAL DISC ARTHROPLASTY 06/30/2020 - 07/30/2020 ULNAR NERVE REPAIR 04/30/2020 - 05/30/2020 decompression WRIST ARTHROSCOPY W/ TRIANGU LAR FIBROCARTILAGE REPAIR Medical History Medical History Date Comments Skin cancer Skin cancer Tremors of nervous system S/P cervical disc replacement 06/2020 Shoulder pain Family History Medical History Relation Name Comments Hypertension Brother Hypertension Father Hypertension Mother Anesthesia problems Neg Hx Relation Name Status Comments Brother Father Mother Social History Tobacco Use Types Packs/Day Years Used Date Smoking Tobacco: Never Smokeless Tobacco: Never Tobacco Cessation:Counseling Given: No Alcohol Use Standard Drinks/Week Comments Yes 0 (1 standard drink = 0.6 oz pur e alcohol) few drinks a month AUDIT-C Answer Date Recorded Q1: How often do you have a drink containing alc ohol? Monthly or less 02/05/2022 Q2: How many drinks containi ng alcohol do you have on a typical day when you are drinking? 1 or 2 02/05/2022 Q3: How often do you have si x or more drinks on one occasion? 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 Gender Identity Not on file Sexual Orientation Not on file Occupation Industry Job Start Date Job End Date [employer] Not on file Not on file Not on file Obstetrics History Last Filed Vital Signs Vital Sign Reading Time Taken Comments Blood Pressure 118/80 03/01/2022 10:29 AM CDT Pulse 73 03/01/2022 10:29 AM CDT Temperature 36.4 C (97.6 F) 02/09/2022 4:00 AM CDT Respiratory Rate 17 02/09/2022 8:59 AM CDT Oxygen Saturation 100% 03/01/2022 10:29 AM CDT Inhaled Oxygen Concentration - - Weight 72.6 kg (160 lb) 03/01/2022 10:29 AM CDT Height 170.2 cm (5' 7) 03/01/2022 10:29 AM CDT Body Mass Index 25.06 03/01/2022 10:29 AM CDT Plan of Treatment Health Maintenance Due Date Last Done Comments Breast Cancer Screening-Mammogram 1977 Colon Cancer Screening-Colonoscopy 1977 Depression Screening 1977 Hepatitis C Screening 1977 DTaP/Tdap/Td Vaccine (1 - Tdap) 1988 Hepatitis B Screening 1995 Regular Well Visit/Exam 18-64 1995 Covid-19 Vaccine (4 - 2023-2 5 season) 2024 09/02/2021, 11/28/2020, 10/31/2020 Influenza Vaccine (Season Ended) 2025 08/11/2020 Pneumococcal vaccine <65 Aged Out No longer eligible based on patient's age to complete this topic Goals Goal Patient Goal Type Associated Problems Recent Progress Patient-Stated? Author CCM Chronic Pain Care Plan Chronic Care Management Improving( 3:21 PM INTERNAL COMBUSTION ENGINE SUBASSEMBLER) Edwin Blanco, RN Note: Problem: Chronic Pain Goals: 1. Minimize further functional decline 2. Maximize quality of life 3. Control pain Strategies: - Activity/exercise program recommendation - Conservative stepwise pain medicine strategy with multi-disciplinary approach - Recommend healthy lifestyle strategies and compensatory methods as needed Medical Devices Implanted Type Area Sanitarian Device Identifier Shelf Expiration Date Model / Serial / Lot Photofix Bovine 6x8 Pericardium Pfp 6x8 - [id number] Implanted:Qty: 1 on 02/05/2022 by Jose Luis Weber MD at [facility] Other - see comments Left: Chest [employer] [id number] 11/11/2023 PFP 6X8 / / [id number] Description:Bovine pericardi um wrapped around the brachial plexus Medtronic Sofamor Danek [id number] Prestige Lp 6mm 16mm Cervical Spine Disc Intervertebral Titanium - [id number] Implanted:Qty: 1 on 07/04/2020 by Antonio Castro MD at [facility] N/A: Spine Cervical Medtronic Inc [id number] 04/12/2028 [id number] / / [id number] Insurance [facility] Advance Directives For more information, please contact: [phone] * Full Code (Latest Code Status on File) Date Activated Date Inactivated Comments 02/05/2022 1:25 PM 02/09/2022 7:20 PM * Full Code Date Activated Date Inactivated Comments 07/04/2020 12:27 PM 07/04/2020 10:59 PM Care Teams Assistant Infant Teacher Relationship Specialty Start Date End Date Amanuel Millard PA PCP - General Physician Drum Maker 04/12/20 Jose Luis Weber MD [address] [facility] [id number] [place] [address] Referring Physician Vascular Surgery 02/09/22
--- OUTSIDE RECORDS SUMMARY | 2025-03-12 02:26 | XMS_ITS | Referral Summary ---
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 Author CCM Chronic Pain Care Plan Chronic Care Management Improving( 3:21 PM ASPHALT TAMPING MACHINE OPERATOR) Edwin Blanco, RN Note: Problem: Chronic Pain Goals: 1. Minimize further functional decline 2. Maximize quality of life 3. Control pain Strategies: - Activity/exercise program recommendation - Conservative stepwise pain medicine strategy with multi-disciplinary approach - Recommend healthy lifestyle strategies and compensatory methods as needed Medical Devices Implanted Type Area Rn Endoscopy Device Identifier Shelf Expiration Date Model / Serial / Lot Photofix Bovine 6x8 Pericardium [facility] 6x8 - [id number] Implanted:Qty: 1 on 02/05/2022 by Jose Luis Weber MD at [facility] Other - see comments Left: Chest [employer] [id number] 11/11/2023 PFP 6X8 / / [id number] Description:Bovine pericardi um wrapped around the brachial plexus Medtronic Sofamor Danek [id number] Prestige Lp 6mm 16mm Cervical Spine Disc Intervertebral Titanium - [id number] Implanted:Qty: 1 on 07/04/2020 by Antonio Castro MD at [facility] N/A: Spine Cervical Medtronic Inc [id number] 04/12/2028 [id number] / / [id number] Insurance [facility] Member Subscriber Plan / Payer (Ef fective 2020-Present) Name:Allyson Head Relation to Subscriber:Self Name:Allyson Head Payer ID:[id number] (NAIC) Group ID:Not on file Type: Address: [place] [id number] [facility] Subscriber Plan / Payer (Ef fective 2022-Present) Name:Allyson Head Relation to Subscriber:Self Name:Allyson Head Payer ID:[id number] (NAIC) Group ID:Not on file Type: Address: [place] [phone] [facility] CLAIMS Member Subscriber Plan / Payer ( fective 2020-Present) Name:Allyson Head Relation to Subscriber:Self Name:Allyson Head Payer ID:[id number] (NAIC) Group ID:Not on file Type: Address: [place] [id number] [facility] CLAIMS Advance Directives For more information, please contact: [phone] * Full Code (Latest Code Status on File) Date Activated Date Inactivated Comments 02/05/2022 1:25 PM 02/09/2022 7:20 PM * Full Code Date Activated Date Inactivated Comments 07/04/2020 12:27 PM 07/04/2020 10:59 PM Care Teams Senior Java Software Developer Relationship Specialty Start Date End Date Amanuel Millard PA PCP - General Physician Choir Leader 04/12/20 Jose Luis Weber MD [address] [facility] [id number] [place] [address] Referring Physician Vascular Surgery 02/09/22
--- OUTSIDE RECORDS SUMMARY | 2025-03-12 02:27 | XMS_ITS | Encounter Summary ---
Author Name [facility] Organization [facility] Address [address] [place] [address] Care Team Providers Care Risk Prevention Engineer Name Role Phone GABY ANNA Primary Care Provider Unavailabl e Selected Encounter This section includes the information on record at [place] for the Encounter. Date/Time Encounter Type Encounter Description Reason Provider Source Jul 08, 2024 09:00 AM OFFICE O/P NEW MOD 45 MIN OPTOMETRY ICD-10-CM Z01.00 Encounter for exam of eyes and vision w/o abnormal findings ZOLTAN BROWER [facility] Encounter Template Text not used by [place] Assessments - Encounter Diagnoses This section includes the primary and secondary diagnoses documented for the Encounter. Date/Time Primary/Secondary Diagnosis Diagnosis Name Provider Source Jul 08, 2024 10:24 AM PRIMARY Encounter for exam of eyes and vision w/o abnormal findings ZOLTAN BROWER [facility] Jul 08, 2024 10:24 AM SECONDARY Presbyopia [facility] Jul 08, 2024 10:24 AM SECONDARY Regular astigmatism, bilateral ZOLTAN BROWER [facility] Plan of Treatment: Future Appointments (+ 6 months) and Future Tests (+/- 45 days) The Plan of Treatment section includes future care activities for the patient from all [place] treatmentfacilities. This section includes future appointments and future orders which are active, pending or scheduled. Future Appointments This section includes appointments that were scheduled to occur 6 months from the date of the Encounter, up to a maximum of 20 appointments. The data comes from all [place] treatment facilities. Appointment Date/Time Appointment Type Appointme nt Facility Name Aug 13, 2024 02:40 PM AMBULATORY - MEDICINE [facility] Oct 14, 2024 11:00 AM AMBULATORY - NONE . VERITO Mackenzie [facility] Dec 25, 2024 08:20 AM AMBULATORY - MEDICINE [facility] Jan 05, 2025 07:30 AM AMBULATORY - SURGERY [facility] Social History: Smoking Status (Most current) and Tobacco Use (All prior to encounter date) This section includes the most current, and the historical, smoking and tobacco- related health factors from the [place] facility where the Encounter took place. Current Smoking Status This section includes the most current smoking, or tobacco-related health factor, from the [place] facility where the Encounter took place. Date/Time Current Smoking Status Comment Facil ity Mar 30, 2024 11:30 AM [place]-TOBACCO NEVER USED [facility] Tobacco Use History This section includes a history of the smoking, or tobacco-related health factors, that were collected on or before the date of the Encounter. The data comes from the [place] facility where the Encounter took place. Date/Time Smoking Status/Tobacco Use Comment F acility Apr 12, 2023 02:30 PM [place]-TOBACCO NEVER USED [facility] Apr 27, 2022 11:00 AM [place]-TOBACCO NEVER USED [facility] Encounter Notes: All associated encounter notes This section contains the clinical notes associated to the Encounter. Date/Time Encounter Note(s) Provider Source Jul 08, 2024 08:41 AM OPTOMETRY NOTE: LOCAL TITLE: OPTOMETRY NOTE STANDARD TITLE: OPTOMETRY NOTE DATE OF NOTE: JUL 08, 2024@08:41 ENTRY DATE: JUL 08, 2024@08:41:51 AUTHOR: ALEJANDRO BROWER EXP COSIGNER: URGENCY: STATUS: COMPLETED Last seen: Inital [facility] visit (last eye exam 2 years ago) CC:annual eye exam 1. Blurry vision OU - Near, feels like it is worsening - Notes she has to stretch arm further away to read - On computer for prolonged time - 8 hours a day - Pt has habitual glasses: ~2 years old Mainly uses for night driving 2. no other visual or ocular complaints Ocular meds: none Ocular ROS: (-) ocular injuries (-) ocular surgeries/injections/lase r treatments Family OcHX: (-) blindness (-) glaucoma (-) AMD (-) RD Cardiovascular ROS: no change from problem & medication lists CPRS Problem list, medications and allergies reviewed: CPRS Serology for Diabetes GLUCOSE 99 mg/dL 03/30/2024 12:09 HGA1C 5.4 % 03/30/2024 12:09 Cardiovascular BP: 134/74 (03/30/2024 11:36) Pulse: 59 (03/30/2024 11:36) Neuro: Orientation: Normal Psych: Mood/Affect: Normal Depression/suicide ideation: NO VISUAL ACUITY With correction Distance Visual Acuity Tile Decorator OD: 20/20 OS: 20/20 Pupils PERRL OU (-)APD Tile Decorator Confrontation FTFC OU Extra-Ocular Muscles Full OU Externals/adnexa Unremarkable OU Lensometry 07/08/24 ` OD: +0.25 -0.50 x112 OS: +0.25 -0.75 x088 Autorefraction 07/08/24 OD: +0.25 -1.00 x110 OS: plano -1.00 x070 Refraction 07/08/24 Tile Decorator OD: plano -0.75 x110 20/20 OS: plano -0.75 x075 20/20 Add: +0.75 (computer distance) SLIT LAMP EXAMINATION Lids/Lashes/Lacrimal No blepharitis OU Conjunctiva/Sclera White/quiet OU Cornea Clear OU Ant Chamber Deep and quiet OU Iris Normal, (-)NVI OU Lens Clear OU Intraocular Pressures (Goldmann) 1 gtt fluress Date OD OS Time Meds 07/08/24 13 12 0855 none, Tile Decorator RETINAL EVALUATION - DFE Dilated retinal exam Instilled 1 gtt phenylephrine 2.5%, 1 gtt tropicamide 1% OU Patient understands the side effects associated with dilation Optic Nerve OD: 0.25 CDR Flat, pink, distinct (-)NVD OS: 0.25 CDR Flat, pink, distinct (-)NVD Vessels: 2/3 OU, (-)NVE OU Posterior Pole: OD: (-) Hemorrhages (-) exudates (-) cotton wool spots OS: (-) Hemorrhages (-) exudates (-) cotton wool spots Macula: OD: Flat, clear (-)CSME OS: Flat, clear (-)CSME Periphery: OD: Flat and attached OS: Flat and attached Vitreous: (-)PVD OU Apple Zapata, Optometry Tile Decorator participated in the care of this under my supervision. I personally examined the patient and provided the following assessment and plan: Assessment/Plan 07/08/2024 1. Good Ocular Health - BCVAs: 20/20 OU - Retina flat, intact, no holes, tears, detachments noted on clinical examination - Educated patient on today's findings. Patient is to RTC should she note any vision changes - Monitor yearly 2. Astigmatism with Presbyopia OU - BCVA 20/20 with refraction - Order new glasses, NVO for computer distance, consult placed - Continue with habitual DVO for night driving/prn - Discussed option for bifocal, pt not interested at this time, afraid of difficult adaptation - Monitor yearly Pt edu on all findings and given the opportunity to have questions answered RTC 12 months for annual eye exam; sooner PRN /burak/ ALEJANDRO BROWER O.D. [employer] Police Captain, Optometry Signed: 07/08/2024 11:31 ALEJANDRO BROWER [facility]
--- OUTSIDE RECORDS SUMMARY | 2025-03-12 02:27 | XMS_ITS | Encounter Summary ---
Author Organization [facility] Address [address] [place] [address] Care Team Providers Care Leather Carver Name Role Phone Amanuel Millard Primary Care Provider Jose Luis Weber MD Unavailable [phone] Encounter Details Date Type Department Care Team (Late st Contact Info) Description 04/12/2021 Telephone [facility] [address] 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 Minimize further functional decline 2. Maximize quality of life 3. Control pain Strategies: - Activity/exercise program recommendation - Conservative stepwise pain medicine strategy with multi-disciplinary approach - Recommend healthy lifestyle strategies and compensatory methods as needed documented as of this encounter Visit Diagnoses Not on filedocumented in this encounter Care Teams Leather Carver Relationship Specialty Start Date End Date Amanuel Millard PA PCP - General Physician Tank Pumper Panelboard 04/12/20 Jose Luis Weber MD [id number] [place] [address] Referring Physician Vascular Surgery 02/09/22 documented as of this encounter
[2025-03-12] MEDS: LACTATED RINGERS 1,000 ML 30 ML IV CONT ×2 (06:25→09:10)
--- NOTE | 2025-03-12 07:05 | P.PNAN_ITS ---
Anes - Initial Pre Proc Eval Procedure: Operation Date: 03/12/25 07:30 Proposed Procedures p Urethral Sling - Gopal Fish MD Date/Time: 03/12/25 07:05 Surgeon: Gopal Fish MD Pre Op Diagnosis: Stress Incont Patient Data Age: 49 Gender: F Height: 1.7 m Weight: 85.4 kg Last Vital Signs Temp 36.6 C 03/12/25 06:05 Pulse 62 03/12/25 06:05 Resp 16 03/12/25 06:05 BP 117/88 03/12/25 06:05 Pulse Ox 100 03/12/25 06:05 O2 Del Method Room Air 03/12/25 06:05 Allergies Allergy/AdvReac Type Severity Reaction Status Date / Time Penicillins Allergy Intermediate Hives Verified 03/12/25 06:11 Home Medications ?Medication ?Instructions ?Recorded ?Confirmed ?Type cholecalciferol (vitamin D3) 25 25 mcg PO DAILY 03/04/25 03/12/25 History mcg (1,000 unit) capsule (Vitamin D3) gabapentin 300 mg capsule 300 mg PO TID 03/04/25 03/12/25 History oxybutynin chloride 5 mg tablet 5 mg PO DAILY 03/04/25 03/12/25 History Patient hx anesthesia problems: none Family hx anesthesia problems: none Results Review: All pre-operative results and documents have been reviewed as part of the pre- operative evaluation. [facility] Past Medical History Medical History (Updated 03/12/25 @ 07:05 by Amanuel Benson DO) Fibroid Thoracic outlet syndrome hx of - surgery removal of rib Social History Social History Smoking status: Never smoker Alcohol intake: never Substance use: never Living arrangements: alone Spiritual care concerns: No Anes - Eval Final PreProcedure Day of Procedure 03/12/25 07:05 Patient weight: overweight Heart: regular rate and rhythm Lungs: clear to auscultation Airway: Mallampati scale class III Neurological: alert and oriented Last oral intake: >/= 8 hours ASA classification: II Emergent: no Anesthetic plan: proceed Anesthesia type and monitoring: general GIVS and standard monitoring Results Review: All pre-operative results and documents have been reviewed as part of the pre- operative evaluation. Informed Consent: The patient's anesthetic plan and its attendant risks and benefits were discussed with the patient/family/POA. Questions were solicited and answers provided to the satisfaction of the patient/family/POA.
--- NOTE | 2025-03-12 07:22 | WPDHPUPDATE1 ---
History and Physical Update Update Date/Time: 03/12/25 07:22 History and Physical has been reviewed, including an updated exam of the patient. There are NO changes in the patient's condition. Risks, benefits, and alternatives have been discussed and questions answered. Patient agrees to proceed with procedure.
[2025-03-12] MEDS: BUPIVACAINE/EPINEPHRINE 0.5% 30 ML VIAL INFILTRATE (08:18)
[2025-03-12] MEDS: ceFAZolin 2 GM/D5W 50 ML 2 GM/50 ML BAG IVPB (08:18)
--- NOTE | 2025-03-12 08:46 | W.PM.PROC2 ---
Procedure Note - Detailed Date of Procedure 03/12/25 Pre-op Diagnosis Stress Incont Post-op Diagnosis Same Procedure Performed mid urethral sling cystoscopy Surgeon Gopal Fish MD Anesthesia General Indications This is a female with confirm stress urinary incontinence. She desires surgical correction. She understands the risks of bleeding, infection, injury to the urinary tract, vaginal mesh extrusion, urinary tract mesh erosion, obstructive voiding requiring a secondary procedure, hip and leg pain, dyspareunia, inability to improve overactive bladder symptoms. She agrees to proceed. Description of Procedure She was correctly identified. Informed consent obtained. She was brought the operating room. She was given appropriate anesthesia. She was given appropriate perioperative antibiotics. A time-out performed. I marked out the site of the inner thigh incisions. I anesthetized the skin and made those incisions. I anesthetized the anterior vaginal wall over the mid urethra. I made a 1 cm incision. I dissected out laterally taking great care not to injure the refilled vaginal wall. I passed the helical trocars. First on the left. Then on the right. I did this from the thigh incision towards the vaginal incision. The sling was connected to the trocars and brought out through the thigh incision. I tensioned the sling appropriately. I cut and the plastic sheaths. I then closed the incision with 2 0 Vicryl. On cystoscopy there is no tumors or surgical artifact. There was no surgical artifact in the urethra. I cut the excess sling material. Close incisions with glue. She was awakened and transferred to the PACU in stable condition. Implants Urethral sling Estimated Blood Loss 20 Drains No Packing No Pathology None sent Complications No immediate complications Condition Stable Disposition PACU
--- NOTE | 2025-03-12 09:40 | SUR.PHASEII ---
0940 - pt up to restroom on arrival to outpt. recovery. voided large amount of urine.
== END 2025-03-12 10:13 | disposition home or self-care (01) ==
PROVIDERS: Visit Provider Urology
PROC: (CPT 57288; principal; 2025-03-12 07:30)
DX: N39.3 Stress incontinence (female) (male) (principal); G54.0 Brachial plexus disorders
CPT/HCPCS: 57288; C1771; J0690; J1100; J2003; J2250; J2405; J2704; J3010; J7120